=== PATIENT | female | born 1940 | race Caucasian/White ===

== ENCOUNTER 2023-03-07 09:54 | Outpatient (CLI) | payer BC, SELFPAY ==
--- NOTE | 2023-03-07 10:15 | MR_ITS ---
[address] [address] Phone:?[phone] Fax:?[phone] Referring Physician Information: Agnes Herrmann M.D. [address] [facility] [address] Phone:?[phone] Fax:?[phone] Patient:Natalia Wyatt D.O.B:?1940 Sex:?Female Phone:? [facility] MRN:?[id number] Exam Date:?03/07/2023 ? EXAM: MRI of the LEFT KNEE, without contrast CLINICAL HISTORY: Left knee pain. COMPARISONS: Plain radiographs 02/24/2023. TECHNICAL: MR sequences of the left knee: sagittals: PD, PDFS coronals: PD, STIR axials: PD, T2 FS CONTRAST: None SEDATION: None FINDINGS: Bones: No fracture, bone marrow contusion, or other suspicious bone marrow signal abnormality. 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 Retinacula: The medial and lateral retinacula are intact. Fat pads: The infrapatellar, quadriceps, and prefemoral fat pads are unremarkable. Knee joint: Effusion: Moderate left knee joint effusion. Popliteal cyst: None. Intra-articular bodies: None. Posteromedial corner: The semimembranosus and pes anserine tendons are intact. Medial compartment: Medial meniscus: Intact. 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 Lateral compartment: Lateral meniscus: Markedly complex tear from the anterior horn/body junction through most of the posterior horn of the lateral meniscus with full-thickness radial component near the body/posterior horn junction. Cartilage: Extensive grade III chondromalacia over the central, posterior, and medial portions of the lateral tibial plateau. Ligaments: Anterior cruciate ligament: Intact. Posterior cruciate ligament: Intact. Medial collateral ligament: Intact. Posterior oblique ligament: Intact. Fibular collateral ligament: Intact. Posterolateral corner: The distal biceps femoris tendon, iliotibial band, popliteus tendon, popliteus muscle, popliteofibular ligament, and arcuate ligament are intact. Extensor mechanism: Patellar tendon: Intact. Quadriceps tendon: Intact. IMPRESSION: 1. Markedly complex tear from the anterior horn/body junction through most of the posterior horn of the lateral meniscus with full-thickness radial component near the body/posterior horn junction. 2. 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 3. Moderate left knee joint effusion. 4. No ligamentous injury or medial meniscal tear of the left knee. RCB Electronically signed on 03/07/2023 12:29:00 PM by Maurice Valadez M.D.
== END 2023-03-07 09:55 | disposition home or self-care (01) ==
PROVIDERS: PCP Internal Medicine; Visit Provider Family Medicine
DX: M25.562 Pain in left knee (principal); S83.282A Other tear of lateral meniscus, current injury, left knee, initial encounter; M22.42 Chondromalacia patellae, left knee; M25.462 Effusion, left knee
CPT/HCPCS: 73721

== ENCOUNTER 2023-03-13 08:49 | Outpatient (CLI) | payer BC, SELFPAY | END 2023-03-13 08:50 | disposition home or self-care (01) | PROVIDERS: PCP Internal Medicine; Referring Provider Internal Medicine; Visit Provider Physician Assistant Medical | DX: E03.9 Hypothyroidism, unspecified (principal); E78.5 Hyperlipidemia, unspecified; I10 Essential (primary) hypertension; R68.89 Other general symptoms and signs; M10.9 Gout, unspecified; N18.30 Chronic kidney disease, stage 3 unspecified; I48.20 Chronic atrial fibrillation, unspecified | CPT/HCPCS: 80053; 80061; 82306; 82607; 84439; 84443 ==

== ENCOUNTER 2023-05-21 10:08 | Outpatient (CLI) | payer BC, SELFPAY ==
--- NOTE | 2023-05-21 10:15 | CRLHL7_ITS ---
For Patients: As a result of the Century Cures Act, medical imaging exams and procedure reports are released immediately into your electronic medical record. You may view this report before your referring provider. If you have questions, please contact your health care provider. INDICATION: Esophageal dysphagia, aspiration TECHNIQUE: Modified barium swallow. Fluoroscopic time 63 seconds. COMPARISON: Esophagram 04/30/2023 FINDINGS/IMPRESSION: Spontaneous laryngeal penetration occurred with varying thicknesses of barium although no aspiration occurred. No obstruction to the flow of barium although there is diminished transit through the proximal esophagus secondary to distal esophageal spasm. Swallowed barium tablet is tolerated normally within the oropharynx although there is decreased transit through the distal esophagus. Dictated by Solo Kilgore MD @ 05/21/2023 10:53:57 AM (Electronically Signed)
== END 2023-05-21 10:09 | disposition home or self-care (01) ==
LOC: RAD 10:09
PROVIDERS: PCP Internal Medicine; Visit Provider Internal Medicine Gastroenterology
DX: R13.19 Other dysphagia (principal); T17.208A Unspecified foreign body in pharynx causing other injury, initial encounter
CPT/HCPCS: 74230; 92611

== ENCOUNTER 2023-05-22 11:15 | Outpatient (RCR) | payer BC, MEDICARE, SELFPAY ==
--- NOTE | 2023-05-02 11:44 | PT.OPDN ---
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 She reports that everything has been going well and her L knee feels good. She says she was using her step stool today and noticed no pain with that or with going up the stairs. Pt rates overall improvement in symptoms as 80%. Precautions Treatment Precautions/Contraindications Kfmmvkgl-rj-zxuerk osteoarthritis of L knee Markedly complex tear from the anterior horn/body junction through most of the posterior horn of the lateral meniscus with full-thickness radial component near the body/ posterior horn junction Home Exercise Home Exercise Comments [id number] Objective Other/Pertinent Objective R knee ROM - 0-123 L knee ROM - 1-120 R Hip Strength Flexion - 4/5 MMT Abduction - 4/5 MMT Adduction - 4/5 MMT IR - 4/5 MMT ER - 4/5 MMT Extension - 3+/5 MMT L Hip Strength Flexion - 4/5 MMT Abduction - 3+/5 MMT Adduction - 4/5 MMT IR - 4/5 MMT ER - 4+/5 MMT Extension - 3+/5 MMT R knee Extension - 5/5 MMT R Knee Flexion - 4/5 MMT L knee Extension - 5/5 MMT L knee Flexion - 4/5 MMT Patient Instructed in Risks/Benefits Yes Therapeutic Exercise Therapeutic Exercise Minutes (minutes) 40 Therapeutic Exercise: To Restore Bike - 4 minutes Functional Status Squat with chair touch, 3 x 10 *set 2 performed with ball between knees for stabilization assistance, pad placed on chair seat Leg press, 70#, 2 x 10, 6 LAQ, 7.5# 3 x 15 ea Marching in standing, 4# 3 x 10 ea Standing HS curl, 4# 3 x 10 ea Treatment Minutes Timed Code Treatment Minutes 40 Total Treatment Time 40 Billing Units Therapeutic Exercise Units 3 Assessment/Impression Assessment/Impression Katelyn has progressed very well in her time in therapy thus far. Her L knee extension strength is full at this time and her L knee ROM is full. She continues to exhibit significant knee valgus with vab-so-qmzwu transfers; will continue to work on this. Katelyn rates her overall improvement since starting therapy as 80% at this time. She has 6 sessions remaining. We have discussed maintaining our current POC to continue focusing on knee and hip strengthening and proper body mechanics while transferring. Recommend continued PT services to address deficits and return patient to highest level of function. Co-Signed by Efrain Walter, PT, DPT [id number] Plan of Care Physical Therapy Goals STG - To be completed in 2-3 weeks: 1. Pt will report reduction in L knee pain by factor of 2 so that she may ambulate with tolerable level of pain. MET 2. Pt to show appropriate use of all AD's with minimal gait deviations and no LOB with all ambulation to reduce risk of falls and restore normal gait mechanics. MET LTG - To be completed in 8 weeks: 1. Pt to be I with HEP so that they may I manage progression of symptoms. 2. Pt will demonstrate 120 degrees knee flexion on L knee so that they may descend steps without restrictions in ROM. MET 3. Pt will perform 10+ squats with good control over medial/ lateral deviation of knees to show improved functional strength to assist with transfers. 4. Pt will demonstrate 5/5 MMT knee flexion/extension of injured limb to provide greater support to knee joint and allow for ease of ambulation. NOT MET - knee flexion measured as 4/5 MMT 05/01/23. Daily Plan of Care Continue per POC Daily Plan of Care Comments Hip abduction, extension strength exercises at next session. Student Supervision Licensed PT Directed/Approved Treatment, Reviewed POC with Patient,Made Contact with Patient, Participated in Treatment Documentation Reviewed By Senior Supplier Quality Engineer Yes
== END 2023-06-10 09:59 | disposition home or self-care (01) ==
PROVIDERS: PCP Internal Medicine; Visit Provider Physician Assistant Medical
DX: M17.12 Unilateral primary osteoarthritis, left knee (principal); S83.289A Other tear of lateral meniscus, current injury, unspecified knee, initial encounter; M25.562 Pain in left knee; Z51.89 Encounter for other specified aftercare
CPT/HCPCS: 97110; 97140; 97161; 97535

== ENCOUNTER 2023-07-01 08:54 | Outpatient (CLI) | payer BC, SELFPAY | END 2023-07-01 08:55 | disposition home or self-care (01) | LOC: NFLDREF 07-02 14:55 | PROVIDERS: PCP Internal Medicine; Referring Provider Internal Medicine; Visit Provider Physician Assistant Medical | DX: E03.9 Hypothyroidism, unspecified (principal) | CPT/HCPCS: 84443 ==

== ENCOUNTER 2023-09-12 13:47 | Outpatient (CLI) | payer BC, SELFPAY | END 2023-09-12 13:48 | disposition home or self-care (01) | PROVIDERS: PCP Internal Medicine; Visit Provider Family Medicine | DX: Z01.818 Encounter for other preprocedural examination (principal); E03.9 Hypothyroidism, unspecified; D58.2 Other hemoglobinopathies | CPT/HCPCS: 80053; 84443 ==

== ENCOUNTER 2023-12-25 08:45 | Outpatient (CLI) | payer BC, SELFPAY | END 2023-12-25 08:46 | disposition home or self-care (01) | LOC: NFLDREF 12-26 06:17 | PROVIDERS: PCP Internal Medicine; Referring Provider Internal Medicine; Visit Provider Physician Assistant Medical | DX: E03.9 Hypothyroidism, unspecified (principal); E78.5 Hyperlipidemia, unspecified; I10 Essential (primary) hypertension | CPT/HCPCS: 80053; 80061; 84443 ==

== ENCOUNTER 2023-12-30 14:56 | Outpatient (CLI) | payer BC, SELFPAY | END 2023-12-30 14:57 | disposition home or self-care (01) | LOC: FRMREF 14:58 | PROVIDERS: PCP Internal Medicine; Visit Provider Physician Assistant Medical | DX: M1A.9XX0 Chronic gout, unspecified, without tophus (tophi) (principal) | CPT/HCPCS: 84550 ==

== ENCOUNTER 2024-03-09 09:16 | Outpatient (CLI) | payer BC, SELFPAY | END 2024-03-09 09:17 | disposition home or self-care (01) | LOC: NFLDREF 03-10 06:35 | PROVIDERS: PCP Internal Medicine; Referring Provider Internal Medicine; Visit Provider Family Medicine | DX: N39.0 Urinary tract infection, site not specified (principal) | CPT/HCPCS: 87086; 87186 ==

== ENCOUNTER 2024-05-03 10:39 | Outpatient (CLI) | payer BC, SELFPAY ==
--- NOTE | 2024-05-03 10:45 | CRLHL7_ITS ---
For Patients: As a result of the Cures Act, medical imaging exams and procedure reports are released immediately into your electronic medical record. You may view this report before your referring provider. If you have questions, please contact your health care provider. BILATERAL SCREENING MAMMOGRAM WITH COMPUTER-AIDED DETECTION AND TOMOSYNTHESIS CLINICAL HISTORY: BILATERAL breast inverted nipples. COMPARISON: None. TECHNIQUE: Digital BILATERAL mammogram in 4 projections with computer-aided detection. Tomosynthesis was used in this interpretation. BREAST COMPOSITION: There are scattered areas of fibroglandular density. FINDINGS: 3D CC/MLO BILATERAL mammogram images submitted. No suspicious mass or architectural distortion. Benign calcifications. No adenopathy. IMPRESSION: No suspicious findings. RECOMMENDATIONS: Clinical follow-up. BI-RADS Category 2: Benign A lay language report of this examination will be provided to the patient. Dictated by Solo Kilgore MD @ 05/03/2024 11:36:11 AM/CRL:ana PT/Dictated by: Solo Kilgore MD @ 05/03/2024 11:36:00 AM (Electronically Signed)
== END 2024-05-03 10:40 | disposition home or self-care (01) ==
LOC: MAMMO 10:40
PROVIDERS: PCP Physician Assistant Medical; Visit Provider Physician Assistant Medical
DX: N64.59 Other signs and symptoms in breast (principal)
CPT/HCPCS: 77066; G0279

== ENCOUNTER 2024-05-05 14:25 | Outpatient (CLI) | payer BC, SELFPAY | END 2024-05-05 14:26 | disposition home or self-care (01) | LOC: NFLDREF 05-09 16:39 | PROVIDERS: PCP Physician Assistant Medical; Referring Provider Physician Assistant Medical; Visit Provider Physician Assistant Medical | DX: N39.0 Urinary tract infection, site not specified (principal); N30.00 Acute cystitis without hematuria; F32.0 Major depressive disorder, single episode, mild | CPT/HCPCS: 87086; 87186 ==

== ENCOUNTER 2024-05-25 09:14 | Outpatient (CLI) | payer BC, SELFPAY | END 2024-05-25 09:15 | disposition home or self-care (01) | LOC: NFLDREF 05-28 06:06 | PROVIDERS: PCP Physician Assistant Medical; Referring Provider Physician Assistant Medical; Visit Provider Physician Assistant Medical | DX: N30.00 Acute cystitis without hematuria (principal) | CPT/HCPCS: 87086 ==

== ENCOUNTER 2024-07-14 09:18 | Outpatient (CLI) | payer BC, SELFPAY | END 2024-07-14 09:19 | disposition home or self-care (01) | PROVIDERS: PCP Physician Assistant Medical; Visit Provider Physician Assistant Medical | DX: N39.0 Urinary tract infection, site not specified (principal) | CPT/HCPCS: 87086; 87186 ==

== ENCOUNTER 2024-08-03 09:43 | Outpatient (CLI) | payer BC, SELFPAY | END 2024-08-03 09:44 | disposition home or self-care (01) | LOC: NFLDREF 08-07 11:58 | PROVIDERS: PCP Physician Assistant Medical; Referring Provider Physician Assistant Medical; Visit Provider Physician Assistant Medical | DX: N39.0 Urinary tract infection, site not specified (principal) | CPT/HCPCS: 87086 ==

== ENCOUNTER 2024-09-16 14:09 | Outpatient (CLI) | payer BC, SELFPAY | END 2024-09-16 14:10 | disposition home or self-care (01) | PROVIDERS: PCP Physician Assistant Medical; Visit Provider Family Medicine | DX: R30.0 Dysuria (principal); E03.9 Hypothyroidism, unspecified; I10 Essential (primary) hypertension; R41.3 Other amnesia; N39.0 Urinary tract infection, site not specified | CPT/HCPCS: 80053; 84443; 87086; 87186 ==

== ENCOUNTER 2024-10-19 10:56 | Outpatient (CLI) | payer BC, SELFPAY | END 2024-10-19 10:57 | disposition home or self-care (01) | LOC: NFLDREF 10-20 11:26 | PROVIDERS: PCP Physician Assistant Medical; Referring Provider Physician Assistant Medical; Visit Provider Physician Assistant Medical | DX: N39.0 Urinary tract infection, site not specified (principal); B96.5 Pseudomonas (aeruginosa) (mallei) (pseudomallei) as the cause of diseases classified elsewhere | CPT/HCPCS: 87086 ==

== ENCOUNTER 2024-11-02 10:18 | Outpatient (CLI) | payer BC, SELFPAY | END 2024-11-02 10:19 | disposition home or self-care (01) | LOC: NFLDREF 11-04 13:33 | PROVIDERS: PCP Physician Assistant Medical; Referring Provider Physician Assistant Medical; Visit Provider Physician Assistant Medical | DX: R41.0 Disorientation, unspecified (principal) | CPT/HCPCS: 87086 ==

== ENCOUNTER 2024-11-23 09:55 | Outpatient (CLI) | payer BC, SELFPAY | END 2024-11-23 09:56 | disposition home or self-care (01) | LOC: NFLDREF 11-26 07:33 | PROVIDERS: PCP Physician Assistant Medical; Referring Provider Physician Assistant Medical; Visit Provider Family Medicine | DX: R82.90 Unspecified abnormal findings in urine (principal) | CPT/HCPCS: 87086 ==

== ENCOUNTER 2024-11-28 12:03 | Inpatient (IN) | payer MEDICARE, BC, SELFPAY ==
[2024-11-28] VITALS (28 sets, daily range): BP systolic 121–201; BP diastolic 75–126; PULSE 68–108; RESP 18–22; TEMP 35.8–36; O2SAT 87–98; BMI 26.1; BMI 25.7
--- OUTSIDE RECORDS SUMMARY | 2024-11-28 12:05 | XMS_ITS | Clinical Summary ---
Author Organization [facility] Address [place], [place] [address] Care Team Providers Care Coronary Clinical Specialist Name Role Phone RafaYari Cmaeron ZABALA Primary Care Provider Allergies Active Allergy Reactions Criticality Noted Date Comments Adhesive Rash Low 08/13/2014 Codeine Other - Describe In Comment Field Medium Sleep walks Medications multivitamins-c impdwk-rves-eby erals 18-0.4 mg tab tablet Daily Active potassium chloride (KLOR-CON 10; K-TAB) 10 mEq Controlled-Rele ase tablet Daily Active alendronate (FOSAMAX) 70 mg tablet 09/23/2021 Active Certolizumab Pegol (CIMZIA) 400 mg/2 mL (200 mg/mL x 2) sykt injection [id number] Activ e cholecalciferol (VITAMIN D3) 1,000 unit tablet once daily. Active escitalopram oxalate (LEXAPRO) 10 mg tablet 08/01/2021 Active febuxostat (ULORIC) 40 mg tab Daily Active furosemide (LASIX) 20 mg tablet 10/10/2021 Active lisinopriL (PRINIVIL; ZESTRIL) 20 mg tablet Daily Active omeprazole (PRILOSEC) 20 mg Delayed-Release capsule Daily Active oxybutynin XL (DITROPAN XL) 10 mg CR tablet Daily Acti ve Xarelto 15 mg tab tablet 10/06/2021 Active levothyroxine (SYNTHROID) 75 mcg tablet once daily. 03/21/2023 Active metoprolol succinate (TOPROL XL) 25 mg Sustained-Relea se tablet 3 Tablets (75 mg) once daily. 0 03/21/2023 Active Social History Tobacco Use Types Packs/Day Years Used Date Smoking Tobacco: Never Smokeless Tobacco: Never Tobacco Cessation:Counseling Given: Yes Social Connections Answer Date Recorded Frequency of Communication with Friends and Fami ly Not on file 11/24/2021 Financial Resource Strain Answer Date R ecorded Difficulty of Paying Living Expenses Not on file 11/24/2021 Difficulty of Paying Living Expenses Not on file 11/24/2021 Comments Unknown Sex and Gender Information Value Date Recorded Sex Assigned at Not on file Legal Sex Female 10:52 AM CDT Gender Identity Not on file Sexual Orientation Not on file Obstetrics History Last Filed Vital Signs Vital Sign Reading Time Taken Comments Blood Pressure 138/90 10/11/2021 3:07 PM HIGH SCHOOL GUIDANCE COUNSELOR Pulse 82 10/30/2022 1:23 PM HIGH SCHOOL GUIDANCE COUNSELOR Temperature - - Respiratory Rate - - Oxygen Saturation 99% 10/30/2022 1:23 PM HIGH SCHOOL GUIDANCE COUNSELOR Inhaled Oxygen Concentration - - Weight 70.3 kg (155 lb) 10/30/2022 1:23 PM HIGH SCHOOL GUIDANCE COUNSELOR Height - - Body Mass Index - - Plan of Treatment Health Maintenance Due Date Last Done Comments Tdap 1951 Depression screening for age 12+ 1952 BMI (ht and wt on same day) for age 18+ 1958 Zoster (shingles) series for age 50+ (1 of 2) 12/09/18 60 Tetanus booster 1960 DEXA/DXA scan for age 65+ 2005 Pneumococcal series for age 50+ (1 of 1 - PCV) 006 RSV vaccine for adults or pr egnancy (1 - 1-dose 75+ series) 2015 COVID-19 vaccine series (2 - Moderna risk series) 08/2508/19/2022 Influenza for age 65+ 07/25/2024 Insurance [phone] [place] [address] [place] Care Teams Coronary Clinical Specialist Relationship Specialty Start Date End Date Yari Craig PA-C [address] [place] [id number] PCP - General Physician Fur Glosser 09/26/22
--- OUTSIDE RECORDS SUMMARY | 2024-11-28 12:05 | XMS_ITS | Continuity of Care Document ---
Author Name [facility] User [facility] Address Unknown Organization Unknown Address Unknown Procedures FILTER APPLIED:Only known Procedures with Onset Date within the last 5 years Procedure Date Procedure Provider Additional Inform ation Status URINE CULTURE/COLONY COUNT (07163) Completed MICROBE SUSCEPTIBLE COLT (70958) Completed ASSAY OF BLOOD/URIC ACID (28642) Completed COMPREHEN METABOLIC PANEL (00623) Completed ASSAY THYROID STIM HORMONE (20959) Completed LIPID PANEL (86357) Comp leted ADMISSION MED REC MARKER FOR REPORTING AND BPA'S (86822) Completed COMPREHEN METABOLIC PANEL (88145) Completed ASSAY THYROID STIM HORMONE (38317) Completed Encounters FILTER APPLIED:Only known Encounters with Admission Date within the last 5 years Encounter Location Admission Discharge Billing Code Technical Service Rep [facility] Out[facility] Jodi Herrmann Inpatient [facility] Outpatient [facility] Outpatient [facility] Outpatient [facility] Outpatient Yari Craig Outpatient Yari Craig Outpatient Jodi Herrmann Outpatient [facility] Outpatient [facility] Outpatient [facility] Outpatient [facility] Outpatient [facility]
--- OUTSIDE RECORDS SUMMARY | 2024-11-28 12:06 | XMS_ITS | Encounter Summary ---
Author Organization [facility] Address [address] [place] [address] Care Team Providers Care Prepress Proofer Name Role Phone Yari Craig PA-C Primary Care Provider Vasile Reece PhD LP Unavailable Amber Titus APRN SPRAYER AUTOMATIC SPRAY MACHINE Unavailable Amber Titus APRN SPRAYER AUTOMATIC SPRAY MACHINE Unavailable Keerthi Duff PA-C Unavailable [phone] Amber Titus APRN SPRAYER AUTOMATIC SPRAY MACHINE Unavailable [phone] Encounter Details Date Type Department Care Team (Late st Contact Info) Description 07/14/2024 [facility] Neuropsychology [address] [address] Vasile Reece, PhD [address] [address] Social History Tobacco Use Types Packs/Day Years Used Date Smoking Tobacco: Former Cigarettes Smokeless Tobacco: Never Alcohol Use Standard Drinks/Week Comments Yes 0 (1 standard drink = 0.6 oz pure alcohol) once a week - maybe 3 times a month PHQ-2 Answer Date Recorded PHQ-2 Score 0 03/16/2024 Adolescent Education Answer Date Record ed Getting School Help Needed Not on file 08/16 Comments Unknown Sex and Gender Information Value Date Recorded Sex Assigned at Not on file Legal Sex Female 4:56 PM CDT Gender Identity Not on file Sexual Orientation Not on file documented as of this encounter Plan of Treatment Upcoming Encounters Date Type Department Care Team (Late st Contact Info) Description 12/23/2024 3:00 PM KEY PUNCH OPERATOR Office Visit [facility] [place] [address] [place] [phone] Yari Craig PA-C [facility] [address] [facility] [place], [place] [phone] Keerthi Duff PA-C [address] [facility] [address] [place] [address] 02/18/2025 8:00 AM CDT Office Visit [facility] Neuropsychology [address] [phone] Vasile Reece, PhD [address] [address] 02/28/2025 8:00 AM CDT Hospital Encounter [facility] PeriOp Services [address] [place] [address] Yvon Ordonez MD [address] [address] 02/28/2025 8:00 AM CDT - 02/28/2025 8:50 AM CDT Surgery [facility] [address] [place] [address] Yvon Ordonez MD [place] [facility] [address] [place] [address] Colonoscopy Scheduled Procedures Name Priority Associated Diagnoses Date/Ti me COLONOSCOPY Crohn's disease without complication, unspecified gastrointestinal tract location (H) Incontinence of feces with fecal urgency H/O: stroke Rectal urgency 02/28/2025 8:00 AM CDT documented as of this encounter Visit Diagnoses Not on filedocumented in this encounter Care Teams Prepress Proofer Relationship Specialty Start Date End Date Yari Craig PA-C [facility] [address] [place] [address] PCP - General 09/15/23 Vasile Reece, PhD LP [address] [place] [phone] Neuropsychology 10/02/23 Amber Titus APRN SPRAYER AUTOMATIC SPRAY MACHINE [facility] [address] [place] [phone] Nurse Practitioner Psychiatry & Neurology Vascular Neurology 10/24/23 Amber Titus APRN SPRAYER AUTOMATIC SPRAY MACHINE [facility] [address] [place] [address] Assigned Behavioral Health Provider 03/16/24 09/14/24 Keerthi Duff PA-C [address] [address] Physician Sales Demonstrator Urology 09/02/24 Amber Titus APRN SPRAYER AUTOMATIC SPRAY MACHINE [facility] [address] [place] [phone] (work) Assigned Surgical Provider 09/15/24 documented as of this encounter
--- OUTSIDE RECORDS SUMMARY | 2024-11-28 12:06 | XMS_ITS | Encounter Summary ---
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) [address] [address] Phone: tel: Referral ID Status Reason Start Date Expiration Date Visits Re quested Visits Authorized [id number] Closed 10/14/2024 11/23/2024 75 [phone] Encounter Details Date Type Department Care Team (Late st Contact Info) Description 10/15/2024 10:45 AM POINTER MACHINE OPERATOR Therapy Visit [address] [address] Amber Titus APRN HUMAN SERVICE COORDINATOR [facility] [address] [place] [address] Malissa Clements SLP [facility] [address] [place] [address] 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 Not on file 10/15/2024 Within the past 12 months, h ave you been hit, slapped, kicked or otherwise physically hurt by someone? No 2023 Within the past 12 months, h ave you been humiliated or emotionally abused in other ways by your partner or ex-partner? No 10/15/2024 Comments Unknown Sex and Gender Information Value Date Recorded Sex Assigned at Not on file Legal Sex Female 4:56 PM CDT Gender Identity Not on file Sexual Orientation Not on file documented as of this encounter Progress Notes * Malissa Clements, SYDNEE - 10/15/2024 1:10 PM CST Speech Language Pathology Cognitive Linguistic Quick Test (CLQT) SUMMARY OF TEST: The CLQT assesses visual attention and perception, working memory and language output skills, as well as auditory memory and comprehension. Non-linguistic tasks can help assess planning, and self-monitoring, visual discrimination and analysis, as well as creativity and mental flexibility. Together,these subtests assess the cognitive domains of attention, memory, executive function, language, andvisuospatial skills using a severity rating of either WNL (within normal limits), Mild, Moderate orSevere. RESULTS OF TESTING: Attention Score: 133 Severity Rating: Mild Memory Score: 162 Severity Rating: WNL Executive Functions Score: 17 Severity Rating: Mild Language Score: 29 Severity Rating: WNL Visuospatial Skills Score: 66 Severity Rating: WNL Composite Severity Rating Score: 3.6 Severity Rating: WNL INTERPRETATION OF TEST RESULTS: Pt presents with a score in the normal range for her age group. Shepresents with mild/minimal impairments with attention and executive function and normal range for memory, language, and visuospatial skills. TIME ADMINISTERING TEST: 45 min TIME FOR INTERPRETATION AND PREPARATION OF REPORT: 45 min TOTAL TIME: 90 min Reference: Jovan Linder, CCC-ENTERTAINMENT DANCER, (2000) [employer] TER MACHINE OPERATOR * Malissa Clements SLP - 10/15/2024 10:45 AM CST SPEECH LANGUAGE PATHOLOGY EVALUATION Fall Risk Screen: Fall screen completed by: ENTERTAINMENT DANCER Have you fallen 2 or more times in the past year?: No Have you fallen and had an injury in the past year?: No Is patient a fall risk?: No Subjective Presenting condition or subjective complaint: Patient here for a speech-language pathology evaluation d/t h/o CVA in 2022 and concerned for cognitive-linguistic changes in the last few months. Daughter and son in-law present for assessment. Pt lives independently but receives help from family for pill set up. She can walk, get dressed, but is no longer driving. Family has noticed a declinein memory since May. Would like to complete cognitive assessment and determine if she needs more assistance. 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) Thyroid disease Urinary tract infection 08/17/2014 Dates & types of surgery: Past Surgical History: Procedure Laterality Date APPENDECTOMY cataracts Bilateral CHOLECYSTECTOMY COLONOSCOPY EP ABLATION PULMONARY VEIN ISOLATION EYE SURGERY CRUSHING FOREMAN SURGERY HYSTERECTOMY IR CAROTID CEREBRAL ANGIOGRAM RIGHT 09/15/2023 SKIN / NAIL BIOPSY Right hand/removal of growth Prior diagnostic imaging/testing results: (Patient-Rptd) MRI; CT scan; X-ray Prior therapy history for the same diagnosis, illness or injury: (Patient-Rptd) Yes (Patient-Rptd) 09/15_~04/16 Yes, patient received ENTERTAINMENT DANCER services while an , ARU, [facility], and other care facilities, until her discharge back to her home in March 2024. Living Environment Social support: (Patient-Rptd) Alone Help at home: (Patient-Rptd) Home management tasks (cooking, cleaning); Medication and/or finances;Assist for driving and community activities; Emergency call system Equipment owned: (Patient-Rptd) Four-point cane; Walker with wheels; Grab bars; Bath bench Employment: (Patient-Rptd) No Hobbies/Interests: (Patient-Rptd) reading painting Patient goals for therapy: None stated Pain assessment: Pain denied Objective VERBAL EXPRESSION (use of spoken language to express information) Verbal expression level of impairment: no impairment PRAGMATICS (the social or functional use of language) Nonverbal skills: WFL Verbal Skills: WFL Pragmatics level of impairment: no impairment COGNITIVE STATUS Attention: impaired, min/mild changes Short term memory: intact long term care pharmacist memory: intact Executive function: impaired mental flexibility, unable to self-correct Cognition level of impairment: minimal impairment Additional cognitive evaluation: completed; see separate report for results, CLQT Assessment & Plan CLINICAL IMPRESSIONS Medical Diagnosis: 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 She presentswith mild impairments with attention and executive function and normal range for memory, language, and visuospatial skills. She will benefit from 1-2 follow up appointments for education of compensatory strategies for attention and reasoning and home program exercises. PLAN OF CARE Treatment Interventions: Cognitive skills Prognosis to achieve stated therapy goals is good Rehab potential is impacted by: comorbidities, family/caregiver support Jail Goals: ENTERTAINMENT DANCER Goal 1 Goal Identifier: LTG 1: Education and compensatory strategies Goal Description: Patient and family will verbalize understanding of cognitive- linguistic compensatory strategies for attention and executive function skills for carry-over into the home. Rationale: To maximize safety and independence with cognitive function within the home or community Target Date: 11/14/24 ENTERTAINMENT DANCER Goal 2 Goal Identifier: LTG 2: HEP Goal Description: Patient and family will verbalize understanding of a home exercise program for cognitive-linguistic skills. Rationale: To maximize safety and independence with cognitive function within the home or community Target Date: 11/14/24 Frequency of Treatment: 1x week Duration of Treatment: 2 sessions in 30 days Recommended Referrals to Other Professionals: Occupational Therapy, Neuropsychology Education Assessment: Learner/Method: Patient;Family;Listening;No Barriers to Learning Risks and benefits of evaluation/treatment have been explained. Patient/Family/caregiver agrees with Plan of Care. Evaluation Time: Signing Clinician: SYDNEE Baker TER MACHINE OPERATOR documented in this encounter Plan of Treatment Upcoming Encounters Date Type Department Care Team (Late st Contact Info) Description 12/23/2024 3:00 PM POINTER MACHINE OPERATOR Office Visit [facility] [address] [place] [phone] Yari Craig PA-C [facility] [address] [place] [address] Keerthi Duff PA-C [address] [address] 02/18/2025 8:00 AM CDT Office Visit [facility] [place] [address] [facility] 3rd [place] [phone] Vasile Reece, PhD [address] [id number] 02/28/2025 8:00 AM CDT Hospital Encounter [facility] [address] [place] [address] Yvon Ordonez MD [facility] [address] [place] [address] 02/28/2025 8:00 AM CDT - 02/28/2025 8:50 AM CDT Surgery [facility] [address] [place] [phone] Yvon Ordonez MD [address] [address] Colonoscopy Scheduled Procedures Name Priority Associated Diagnoses Date/Ti me COLONOSCOPY Crohn's disease without complication, unspecified gastrointestinal tract location (H) Incontinence of feces with fecal urgency H/O: stroke Rectal urgency 02/28/2025 8:00 AM CDT documented as of this encounter Visit Diagnoses Diagnosis 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) Crohn's disease without complication, unspecified gastrointestinal tract location (H) Incontinence of feces with fecal urgency H/O: stroke Transient ischemic attack (TIA), and cerebral infarction without residual deficits Rectal urgency Fecal urgency documented in this encounter Care Teams Office Admin Relationship Specialty Start Date End Date Yari Craig PA-C [address] [place] [address] PCP - General 09/15/23 Vasile Reece, PhD LP [address] [place] [phone] Neuropsychology 10/02/23 Amber Titus APRN HUMAN SERVICE COORDINATOR [facility] [address] [place], [place] [address] Nurse Practitioner Psychiatry & Neurology Vascular Neurology 10/24/23 Keerthi Duff PA-C [address] [address] Physician Thread Machine Operator Urology 09/02/24 Amber Titus APRN HUMAN SERVICE COORDINATOR [facility] [address] [place] [phone] Assigned Surgical Provider 09/15/24 documented as of this encounter
--- OUTSIDE RECORDS SUMMARY | 2024-11-28 12:06 | XMS_ITS | Encounter Summary ---
Author Organization [place] Address [address] [facility] [place] [address] Care Team Providers Care Millstone Cleaner Name Role Phone Yari Craig PA-C Primary Care Provider Vasile Reece PhD LP Unavailable [phone] Amber Titus APRN CARDIOVASCULAR SURGICAL TECH Unavailable [phone] Keerthi Duff PA-C Unavailable Amber Titus APRN CARDIOVASCULAR SURGICAL TECH Unavailable [phone] Encounter Details Date Type Department Care Team (Late st Contact Info) Description 09/27/2024 MyC Medical Advice [facility] [place] [address] [place] [phone] Carolyn Hernandez Social History Tobacco Use Types Packs/Day Years [...] st Contact Info) Description 12/23/2024 3:00 PM BUNCH MAKER HAND Office Visit [facility] [place] [address] [facility] [address] [place] [address] Yari Craig PA-C [facility] [address] [place], [place] [phone] Keerthi Duff PA-C [address] [address] 02/18/2025 8:00 AM CDT Office Visit [facility] Neuropsychology [address] [phone] Vasile Reece, PhD [address] [address] 02/28/2025 8:00 AM CDT Hospital Encounter [facility] [address] [place] [phone] Yvon Ordonez MD [address] [address] 02/28/2025 8:00 AM CDT - 02/28/2025 8:50 AM CDT Surgery [facility] [address] [place] [phone] Yvon Ordonez MD [address] [address] Colonoscopy Scheduled Procedures Name Priority Associated Diagnoses Date/Ti me COLONOSCOPY Crohn's disease without complication, unspecified gastrointestinal tract location (H) Incontinence of feces with fecal urgency H/O: stroke Rectal urgency 02/28/2025 8:00 AM CDT documented as of this encounter Visit Diagnoses Not on filedocumented in this encounter Care Teams Millstone Cleaner Relationship Specialty Start Date End Date Yari Craig PA-C [facility] [address] [facility] [place] [address] PCP - General 09/15/23 Vasile Reece, PhD LP [address] [place] [phone] Neuropsychology 10/02/23 Amber Titus APRN CARDIOVASCULAR SURGICAL TECH [facility] [address] [place] [phone] Nurse Practitioner Psychiatry & Neurology Vascular Neurology 10/24/23 Keerthi Duff PA-C [address] [id number] Physician Podiatric Physician Urology 09/02/24 Amber Titus APRN CARDIOVASCULAR SURGICAL TECH [facility] [address] [place] [address] [phone] Assigned Surgical Provider 09/15/24 documented as of this encounter
--- OUTSIDE RECORDS SUMMARY | 2024-11-28 12:06 | XMS_ITS | Clinical Summary ---
Author Organization [facility] Address [address] [place] [address] Care Team Providers Care Event Attendant Name Role Phone Yari Craig PA-C Primary Care Provider Vasile Reece PhD LP Unavailable [phone] Amber Titus APRN [employer]ACH [employer] Unavailable [phone] Keerthi Duff PA-C Unavailable [phone] Amber Titus APRN BEACH EX[employer]ERT Unavailable Allergies Active Allergy Reactions Criticality Noted Date Comments Adhesive Tape Rash Low 09/12/2023 If for short use no problem but if on for less then 24 hours no problems Codeine Confusion 09/12/2023 Sleeps heavily and has wandered after use Medications alendronate (FOSAMAX) 70 MG tabletIndication s:Decreased Bone Mineral Density Take 70 mg by mouth every 7 days Active calcium carbonate-vitami n D (CALTRATE) 600-10 MG-MCG per tabletIndication s:Hypocalcemia Take 1 tablet by mouth 2 times daily Active levothyroxine (SYNTHROID/LEVOT HROID) 75 MCG tabletIndication s:Hypothyroidism Take 75 mcg by mouth daily Active multivitamin (CENTRUM SILVER) tabletIndication s:nutrition supplement Take 1 tablet by mouth daily Active omeprazole (PRILOSEC) [address] capsuleIndicatio ns:Heartburn Take 40 mg by mouth 2 times daily Active rivaroxaban ANTICOAGULANT (XARELTO) 15 MG TABS tabletIndication s:Afib-non valvular Take 15 mg by mouth daily (with dinner) Active febuxostat (ULORIC) 40 MG TABS tabletIndication s:Hyperuricemia Take 40 mg by mouth daily Active atorvastatin (LIPITOR) 40 MG tabletIndication s:Cerebrovascula r Accident Take 1 tablet (40 mg) by mouth every evening Active escitalopram (LEXAPRO) 10 MG tabletIndication s:Generalized Anxiety Disorder Take 2 tablets (20 mg) by mouth daily Active diclofenac (VOLTAREN) 1 % topical gel Apply 2 g topically 3 times daily Active acetaminophen (TYLENOL) 500 MG tablet Take 2 tablets (1,000 mg) by mouth 3 times daily. May also take 2 tablets (1,000 mg) daily as needed for mild pain. Active albuterol (PROAIR HFA/PROVENTIL HFA/VENTOLIN HFA) 108 (90 Base) MCG/ACT inhaler Inhale 2 puffs into the lungs every 4 hours as needed for shortness of breath, wheezing or cough Active lisinopril (ZESTRIL) 10 MG tabletIndication s:Hypertension Take 2 tablets (20 mg) by mouth 2 times daily Active cloNIDine (CATAPRES) 0.1 MG tabletIndication s:Hypertension Take 0.1 mg by mouth every 6 hours as needed (hypertension) Give if SBP >170 Active certolizumab pegol (CIMZIA) 2 X 200 MG injection 2 vials/kit Inject 1 Syringe Subcutaneous every 14 days Active metoprolol succinate ER (TOPROL XL) 50 MG 24 hr tablet Take 50 mg by mouth 2 times daily Active traZODone (DESYREL) 50 MG tablet 25mg Active donepezil (ARICEPT) 5 MG tabletIndication s: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 30 tablet 2 024 2023 Discontinued Active Problems Problem Noted Date Diagnosed Date Decreased range of motion of knee 10/08/2023 Gastroesophageal reflux disease 10/08/2023 Hyperlipidemia 10/08/2023 Instability of knee joint 10/08/2023 Major depression 10/08/2023 Migraine headache 10/08/2023 Osteoporosis 10/08/2023 Stage 3 chronic kidney disease 10/08/2023 Knee pain, bilateral 09/21/2023 CVA (cerebral vascular accident) 09/20/2023 Acute CVA (cerebrovascular accident) 09/15/2023 Chronic atrial fibrillation 11/15/2021 Hypothyroidism 11/15/2021 Regional enteritis 11/15/2021 Lumbar compression fracture 08/13/2014 Pancytopenia 08/13/2014 Overview (10/08/2023): Thought to be secondary of MTX (elevated levels due to ABBIE from diarrhea) 08/2014 Gout 08/06/2013 Osteoarthrosis 08/06/2013 Primary hypertension 08/06/2013 Rheumatoid arthritis 08/06/2013 Overview (10/08/2023): Dx in 40s Was on MTX, Plaquenil from rheum in [place] MTX stopped 09/12 due to low blood counts Resolved Problems Problem Noted Date Diagnosed Date Resolved Date Acute pain of left knee 10/08/202309/24 Oral mucositis 08/19/2014 10/08/2023 Urinary tract infection 08/17/201409/24 ABBIE (acute kidney injury) 08/14/2014 Colitis 08/13/2014 10/08/2023 Overview (10/08/2023): CT and colonoscopy 08/2014 ?UC or Crohn's Encounters Date Type Department Care Team Description 11/03/2024 Refill [facility] Neurology [address] [address] Amber Titus APRN BEACH EX[employer]ERT Med Change Request 10/19/2024 9:30 AM ASSISTANT EXECUTIVE HOUSEKEEPER Therapy Visit [address] [address] Amber Titus APRN BEACH EXPERT Shannon Luis OTR 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) 10/19/2024 Travel 10/15/2024 10:45 AM ASSISTANT EXECUTIVE HOUSEKEEPER Therapy Visit [address] [phone] Amber Titus APRN BEACH EXPERT Malissa Clements, SYDNEE 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) 10/15/2024 Travel 10/12/2024 MyC Medical Advice [facility] Neurology [address] [address] Janelle Nj, RN 10/12/2024 Telephone [facility] Neurology [address] [address] Janelle Nj, RN Orders (Lab to Outside Facility) 10/11/2024 10:00 AM ASSISTANT EXECUTIVE HOUSEKEEPER Virtual Visit [address] [address] Amber Titus APRN BEACH EX[employer]ERT 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) (Primary Dx); Cognitive and behavioral changes 10/08/2024 Telephone [facility] [place] [address] [facility], [address] [place] [address] Amber Titus APRN CNP 09/27/2024 MyC Medical Advice [facility] [place] [address] [place] [address] Carolyn Hernandez from Last 3 Months Immunizations Name Administration Dates Next Due COVID-19 Monovalent 18+ (Moderna) 02/02/2021,10/2021 Influenza Vaccine 65+ (Fluzone HD) 08/20/2023, Social History Tobacco Use Types Packs/Day Years Used Date Smoking Tobacco: Former Cigarettes Smokeless Tobacco: Never Tobacco Cessation:Counseling Given: Not Answered Alcohol Use Standard Drinks/Week Comments Yes 0 [...] on file Sexual Orientation Not on file Last Filed Vital Signs Vital Sign Reading Time Taken Comments Blood Pressure 129/83 03/16/2024 2:40 PM CDT Pulse 80 03/16/2024 2:40 PM CDT Temperature 36.3 C (97.3 F) 11/18/2023 3:43 PM ASSISTANT EXECUTIVE HOUSEKEEPER Respiratory Rate 18 11/18/2023 3:43 PM ASSISTANT EXECUTIVE HOUSEKEEPER Oxygen Saturation 95% 03/16/2024 2:40 PM CDT Inhaled Oxygen Concentration - - Weight 81 kg (178 lb 9.6 oz) 12/10/2023 2:21 PM ASSISTANT EXECUTIVE HOUSEKEEPER Height 162.6 cm (5' 4) 11/18/2023 3:43 PM ASSISTANT EXECUTIVE HOUSEKEEPER Body Mass Index 30.66 11/18/2023 3:43 PM ASSISTANT EXECUTIVE HOUSEKEEPER Plan of Treatment Upcoming Encounters Date Type Department Care Team (Late st Contact Info) Description 12/23/2024 3:00 PM ASSISTANT EXECUTIVE HOUSEKEEPER Office Visit [facility] [place] [address] [facility] [address] [place] [address] Yari Craig PA-C [facility] [address] [place], [place] [phone] Keerthi Duff PA-C [address] [facility] [address] [place] [address] 02/18/2025 8:00 AM CDT Office Visit [facility] Neuropsychology [address] [phone] Vasile Reece, PhD [address] [address] 02/28/2025 8:00 AM CDT Hospital Encounter [facility] [address] [place] [address] Yvon Ordonez MD [address] [address] 02/28/2025 8:00 AM CDT - 02/28/2025 8:50 AM CDT Surgery [facility] [address] [place] [address] Yvon Ordonez MD [address] [address] Colonoscopy Scheduled Procedures Name Priority Associated Diagnoses Date/Ti me COLONOSCOPY Crohn's disease without complication, unspecified gastrointestinal tract location (H) Incontinence of feces with fecal urgency H/O: stroke Rectal urgency 02/28/2025 8:00 AM CDT Health Maintenance Due Date Last Done Comments ANNUAL REVIEW OF HM ORDERS 1940 ASTHMA ACTION PLAN 1940 ASTHMA CONTROL TEST 1940 DEPRESSION ACTION PLAN 1940 DEXA 1940 HF ACTION PLAN 1940 MICROALBUMIN 1940 PHQ-9 1940 FALL RISK ASSESSMENT 2005 MEDICARE ANNUAL WELLNESS VISIT 2005 RSV VACCINE (1 - 1-dose 75+ series) 2015 BMP 04/27/2024 10/27/2023, 09/25, 10/15/2023, Additional history exists LIPID 09/15/2024 09/15/2023 ALT 09/28/2024 09/28/2023 CBC 09/28/2024 09/28/2023, 08/26, 09/18/2023, Additional history exists HEMOGLOBIN 09/28/2024 09/28/2023, 08/26, 09/18/2023, Additional history exists COVID-19 Vaccine ( season) 2024 08/26/2024, 10/03/2023, 08/19/2022, Additional history exists ADVANCE CARE PLANNING 10/15/2028 10/15/2023, 023 DTAP/TDAP/TD IMMUNIZATION (2 - Td or Tdap) 10/06/2033 10/06/2023 ZOSTER IMMUNIZATION Completed 04/17/2022, URINALYSIS Completed 09/28/2023 Pneumococcal Vaccine: 50+ Years Completed 10/06/2023 TSH W/FREE T4 REFLEX Completed 10/06/2023, 10/06/20 23 INFLUENZA VACCINE Completed 08/26/2024, , 08/15/2022, Additional history exists HPV IMMUNIZATION Aged Out No longer e ligible based on patient's age to complete this topic MENINGITIS IMMUNIZATION Aged Out No l onger eligible based on patient's age to complete this topic RSV MONOCLONAL ANTIBODY Aged Out No l onger eligible based on patient's age to complete this topic Procedures Procedure Name Priority Date/Time Associated Diagnosis Comments BASIC METABOLIC PANEL Routine 10/27/2023 7:56 AM ASSISTANT EXECUTIVE HOUSEKEEPER Heart failure, unspecified (H) Essential (primary) hypertension T4 FREE Routine 10/06/2023 6:08 AM ASSISTANT EXECUTIVE HOUSEKEEPER Hypothyroidism, unspecified Essential (primary) hypertension UA MACROSCOPIC WITH REFLEX TO MICRO AND CULTURE STAT 09/28/2023 6:38 PM ASSISTANT EXECUTIVE HOUSEKEEPER HEPATIC FUNCTION PANEL Timed 09/28/2023 1:51 PM ASSISTANT EXECUTIVE HOUSEKEEPER CBC WITH PLATELETS STAT 09/28/2023 11 :03 AM ASSISTANT EXECUTIVE HOUSEKEEPER LIPID PROFILE Add-On 09/15/2023 5:49 AM CDT from Last 3 Months or Most Recently Relevant to Health Maintenance Results * (ABNORMAL) Basic metabolic panel (10/27/2023 7:56 AM ASSISTANT EXECUTIVE HOUSEKEEPER) Sodium 139 135 - 145 mmol/L 10/27/2023 10:22 AM [facility] Comment:Reference intervals for this test were updated on 08/19/2023 to more accurately reflect our healthy population. There may be differences in the flagging of prior results with similar values performed with this method. Interpretation of those prior results can be made in the context of the updated reference intervals. Potassium 4.3 3.4 - 5.3 mmol/L 10/27/2023 10:22 AM [facility] Chloride 100 98 - 107 mmol/L 10/27/2023 10:22 AM [facility] Carbon Dioxide (CO2) 26 22 - 29 mmol/L 10/27/2023 10:22 AM [facility] Anion Gap 13 7 - 15 mmol/L 10/27/2023 10:22 AM [facility] Urea Nitrogen 35.6(H) 8.0 - 23.0 mg/dL 10/27/2023 10:22 AM [facility] Creatinine 1.44(H) 0.51 - 0.95 mg/dL 10/27/2023 10:22 AM [facility] GFR Estimate 36(L) >60 mL/min/1. 73m2 10/27/2023 10:22 AM [facility] Calcium 9.0 8.8 - 10.2 mg/dL 10/27/2023 10:22 AM [facility] Glucose 99 70 - 99 mg/dL 10/27/2023 10:22 AM [facility] Blood BLOOD SPECIMEN / Unknown Venipuncture / Unknown 10/27/2023 7:56 AM ASSISTANT EXECUTIVE HOUSEKEEPER 10/27/2023 9:51 AM ASSISTANT EXECUTIVE HOUSEKEEPER Yeimy Almazan APRN, CNP LAB - BLOOD ORDER CHARISMA Final Result [facility] [address], [address] [place] [address], [place] [phone] * T4 free (10/06/2023 6:08 AM ASSISTANT EXECUTIVE HOUSEKEEPER) Free T4 1.27 0.90 - 1.70 ng/dL 10/06/2023 11:37 AM ASSISTANT EXECUTIVE HOUSEKEEPER LABORATORY Blood STRUCTURE OF RIGHT HAND / Unknown Venipuncture / Unknown 10/06/2023 6:08 AM ASSISTANT EXECUTIVE HOUSEKEEPER 10/06/2023 9:52 AM ASSISTANT EXECUTIVE HOUSEKEEPER Yeimy Almazan APRN, CNP LAB - BLOOD ORDER CHARISMA Final Result [facility] [address], [address] [place] [address], [place] [phone] * UA Macroscopic with reflex to Microscopic and Culture (09/28/2023 6:38 PM ASSISTANT EXECUTIVE HOUSEKEEPER) Color Urine Yellow Colorless, Straw, Light Yellow, Yellow 09/28/2023 6:50 PM ASSISTANT EXECUTIVE HOUSEKEEPER [facility] Appearance Urine Clear Clear 09/28/20 6:50 PM ASSISTANT EXECUTIVE HOUSEKEEPER [facility] Glucose Urine Negative Negative mg/dL 09/28/2023 6:50 PM ASSISTANT EXECUTIVE HOUSEKEEPER [facility] Bilirubin Urine Negative Negative 6:50 PM ASSISTANT EXECUTIVE HOUSEKEEPER [facility] Ketones Urine Negative Negative mg/dL 09/28/2023 6:50 PM ASSISTANT EXECUTIVE HOUSEKEEPER [facility] Specific [place] Urine 1.012 1.003 - 1.035 09/28/2023 6:50 PM ASSISTANT EXECUTIVE HOUSEKEEPER [facility] Blood Urine Negative Negative 09/28/2023 6:50 PM ASSISTANT EXECUTIVE HOUSEKEEPER [facility] pH Urine 5.0 5.0 - 7.0 09/28/2023 6:50 PM ASSISTANT EXECUTIVE HOUSEKEEPER [facility] Protein Albumin Urine Negative Negative mg/dL 09/28/2023 6:50 PM ASSISTANT EXECUTIVE HOUSEKEEPER [facility] Urobilinogen Urine Normal Normal, 2.0 mg/dL 09/28/2023 6:50 PM ASSISTANT EXECUTIVE HOUSEKEEPER [facility] Nitrite Urine Negative Negative 09/28/2023 6:50 PM ASSISTANT EXECUTIVE HOUSEKEEPER [facility] Leukocyte Esterase Urine Negative Negative 09/28/2023 6:50 PM ASSISTANT EXECUTIVE HOUSEKEEPER [facility] Urine URINE SPECIMEN OBTAINED BY CLEAN CATCH PROCEDURE / Unknown Non-blood Collection / Unknown 09/28/2023 6:38 PM ASSISTANT EXECUTIVE HOUSEKEEPER 09/28/2023 6:45 PM ASSISTANT EXECUTIVE HOUSEKEEPER Narrative [facility] - 09/28/2023 6:50 PM ASSISTANT EXECUTIVE HOUSEKEEPER Microscopic not indicated us Kasey Covington MD LAB - URINE ORDERABLES Final Re sult UR [facility]ORAT[facility] [address] [facility] [phone] * Hepatic panel (09/28/2023 1:51 PM ASSISTANT EXECUTIVE HOUSEKEEPER) Protein Total 7.0 6.4 - 8.3 g/dL 09/28/2023 3:58 PM ASSISTANT EXECUTIVE HOUSEKEEPER [facility] Albumin 4.0 3.5 - 5.2 g/dL 09/28/2023 3:58 PM ASSISTANT EXECUTIVE HOUSEKEEPER [facility] Bilirubin Total 0.4 <=1.2 mg/dL 09/28/2023 3:58 PM ASSISTANT EXECUTIVE HOUSEKEEPER [facility] Alkaline Phosphatase 94 35 - 104 U/L 09/28/2023 3:58 PM ASSISTANT EXECUTIVE HOUSEKEEPER [facility] AST 09/28/2023 3:58 PM ASSISTANT EXECUTIVE HOUSEKEEPER [facility] Comment: Unsatisfactory specimen - hemolyzed Reference intervals for this test were updated on 05/05/2023 to more accurately reflect our healthy population. There may be differences in the flagging of prior results with similar values performed with this method. Interpretation of those prior results can be made in the context of the updated reference intervals. ALT 34 0 - 50 U/L 09/28/2023 3:58 PM ASSISTANT EXECUTIVE HOUSEKEEPER [facility] Comment:Reference intervals for this test were updated on 05/05/2023 to more accurately reflect our healthy population. There may be differences in the flagging of prior results with similar values performed with this method. Interpretation of those prior results can be made in the context of the updated reference intervals. Bilirubin Direct <0.20 0.00 - 0.30 mg/dL 09/28/2023 3:58 PM ASSISTANT EXECUTIVE HOUSEKEEPER [facility] Blood BLOOD SPECIMEN / Unknown Venipuncture / Unknown 09/28/2023 1:51 PM ASSISTANT EXECUTIVE HOUSEKEEPER 09/28/2023 2:25 PM ASSISTANT EXECUTIVE HOUSEKEEPER us Kasey Covington MD LAB - BLOOD ORDERABLES Final Re sult UR LABORATORY [facility] [address] [facility] [place] [address], [facility] [phone] * CBC with platelets (09/28/2023 11:03 AM ASSISTANT EXECUTIVE HOUSEKEEPER) WBC Count 8.7 4.0 - 11.0 10e3/uL 09/28/2023 11:10 AM ASSISTANT EXECUTIVE HOUSEKEEPER [facility] RBC Count 4.46 3.80 - 5.20 10e6/uL 09/28/2023 11:10 AM ASSISTANT EXECUTIVE HOUSEKEEPER [facility] Hemoglobin 14.7 11.7 - 15.7 g/dL 09/28/2023 11:10 AM ASSISTANT EXECUTIVE HOUSEKEEPER [facility] Hematocrit 43.7 35.0 - 47.0 % 09/28/2023 11:10 AM ASSISTANT EXECUTIVE HOUSEKEEPER [facility] MCV 98 78 - 100 fL 09/28/2023 11:10 AM ASSISTANT EXECUTIVE HOUSEKEEPER [facility] MCH 33.0 26.5 - 33.0 pg 09/28/2023 11:10 AM ASSISTANT EXECUTIVE HOUSEKEEPER [facility] MCHC 33.6 31.5 - 36.5 g/dL 09/28/2023 11:10 AM ASSISTANT EXECUTIVE HOUSEKEEPER [facility] RDW 13.2 10.0 - 15.0 % 09/28/2023 11:10 AM ASSISTANT EXECUTIVE HOUSEKEEPER [facility] Platelet Count 236 150 - 450 10e3/uL 09/28/2023 11:10 AM ASSISTANT EXECUTIVE HOUSEKEEPER [facility] Blood STRUCTURE OF RIGHT UPPER LIMB / Unknown Venipuncture / Unknown 09/28/2023 11:03 AM ASSISTANT EXECUTIVE HOUSEKEEPER 09/28/2023 11:07 AM ASSISTANT EXECUTIVE HOUSEKEEPER us Kasey Covington MD LAB - BLOOD ORDERABLES Final Re sult UR LABORATORY [facility] [address] [facility] [place] [address], [facility] [phone] * (ABNORMAL) Lipid Profile (09/15/2023 5:49 AM CDT) Cholesterol 227(H) <200 mg/dL 09/15/2023 6:46 PM CDT [facility] Triglycerides 83 <150 mg/dL 09/15/2023 6:46 PM CDT [facility] Direct Measure HDL 53 >=50 mg/dL 09/15/2023 6:46 PM CDT [facility] LDL Cholesterol Calculated 157(H) <=100 mg/dL 09/15/2023 6:46 PM CDT [facility] Non HDL Cholesterol 174(H) <130 mg/dL 09/15/2023 6:46 PM CDT [facility] Blood STRUCTURE OF LEFT HAND / Unknown Venipuncture / Unknown 09/15/2023 5:49 AM CDT 09/15/2023 5:51 AM CDT Narrative [facility] - 09/15/2023 6:46 PM CDT Cholesterol Desirable: <200 mg/dL Triglycerides Normal: Less than 150 mg/dL Borderline High: 150-199 mg/dL High: 200-499 mg/dL Very High: Greater than or equal to 500 mg/dL Direct Measure HDL Female: Greater than or equal to 50 mg/dL Male: Greater than or equal to 40 mg/dL LDL Cholesterol Desirable: <100mg/dL Above Desirable: 100-129 mg/dL Borderline High: 130-159 mg/dL High: 160-189 mg/dL Very High: >= 190 mg/dL Non HDL Cholesterol Desirable: 130 mg/dL Above Desirable: 130-159 mg/dL Borderline High: 160-189 mg/dL High: 190-219 mg/dL Very High: Greater than or equal to 220 mg/dL us Cortes Salvador MD LAB - BLOOD ORDERABLES Final Result [facility] [address] [facility], [address] [place] [address], [facility] [phone] from Last 3 Months or Most Recently Relevant to Health Maintenance Insurance [facility] [employer] MEDICARE [facility] [employer] MEDICARE [facility] [employer] Advance Directives For more information, please contact: [phone] Documents on File Type Date Recorded Patient Machine Worker Expl anation Advance Directives and Livin g Will 10/01/2023 POLST 09-30-2023 * No CPR- Do NOT Intubate (Latest Code Status on File) Date Activated Date Inactivated Comments 09/30/2023 8:52 AM Question Answer Comments Code status determined by: Discussion with patie nt/ legal decision maker * No CPR- Do NOT Intubate Date Activated Date Inactivated Comments 09/20/2023 6:21 PM 09/30/2023 8:52 AM NO basic or advanced life-sustaining interventions are performed. Question Answer Comments Code status determined by: Discussion with patie nt/ legal decision maker * No CPR- Pre-arrest intubation OK Date Activated Date Inactivated Comments 09/20/2023 5:04 PM 09/20/2023 6:21 PM No attempt s to restore cardiac function following arrest. Intubation to prevent or reverse respiratory instability may be performed. Question Answer Comments Code status determined by: Unable to dis cuss and no AD/POLST on file; continue PREVIOUSLY ORDERED code status * No CPR- Pre-arrest intubation OK Date Activated Date Inactivated Comments 09/15/2023 9:22 PM 09/20/2023 4:49 PM No attempt s to restore cardiac function following arrest. Intubation to prevent or reverse respiratory instability may be performed. Question Answer Comments Code status determined by: Discussion with patie nt/ legal decision maker Care Teams Event Attendant Relationship Specialty Start Date End Date Yari Craig PA-C [address] [place] [address] PCP - General 09/15/23 Vasile Reece, PhD LP [address] [place] [address] [phone] Neuropsychology 10/02/23 Amber Titus APRN [employer] NEUROLOGY [facility] [address] [place] [address] [phone] Nurse Practitioner Psychiatry & Neurology Vascular Neurology 10/24/23 Keerthi Duff PA-C [address] [place], [place] [address] Physician [facility] Urology 09/02/24 Amber Titus APRN [employer] NEUROLOGY [facility] [address] [place] [address] [phone] (work) Assigned Surgical Provider 09/15/24
--- OUTSIDE RECORDS SUMMARY | 2024-11-28 12:06 | XMS_ITS | Referral Summary ---
Author Organization [facility] Address [address] [place] [address] Care Team Providers Care Engine Oiler Name Role Phone Yari Craig PA-C Primary Care Provider Vaslie Reece PhD LP Unavailable Amber Titus APRN [facility] Unavailable [phone] Keerthi Duff PA-C Unavailable Amber Titus APRN [facility] Unavailable Encounters Date Type Department Care Team Description 11/03/2024 [facility] [address], [address] [place] [phone] Amber Titus APRN [facility]ONER Med Change Request 10/19/2024 Travel 10/19/2024 9:30 AM LAND DEVELOPER Therapy Visit [address] [address] Amber Titus GROUNDSKEEPING MAINTENANCE WORKERShannon Conner CNP, OTR 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) 10/15/2024 Travel 10/15/2024 10:45 AM LAND DEVELOPER Therapy Visit [facility] [address] [place] [phone] Amber Titus APRN [facility] Malissa Clements SLP 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) 10/12/2024 MyC Medical Advice [facility] Neurology [facility] - [address] [place] [address] Janelle Nj, RN 10/12/2024 Telephone [facility] - [address] [place] [address] Janelle Nj, RN Orders (Lab to Outside Facility) 10/11/2024 10:00 AM LAND DEVELOPER Virtual Visit [facility] Neurology [facility] - [address] [place] [address] Amber Titus APRN CNP 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) (Primary Dx); Cognitive and behavioral changes 10/08/2024 Telephone [facility] Neurology [facility] - [address], [address] [place] [address] Amber Titus APRN [facility]ON[facility] 09/27/2024 MyC Medical Advice [facility] [place] [id number] [facility] [address] [place] [address] Carolyn Hernandez from Last 3 Months Allergies Active Allergy Reactions Criticality Noted Date [...] (20 mg) by mouth 2 times daily 023 Active cloNIDine (CATAPRES) 0.1 MG tabletIndication s:Hypertension [...] Active traZODone (DESYREL) 50 MG tablet 25mg 024 Active donepezil (ARICEPT) 5 MG tabletIndication s:Cerebrovascula r accident (CVA) due to embolism of right carotid artery (H) TAKE 1 TABLET BY MOUTH AT BEDTIME 90 tablet 1 024 Active citalopram (CELEXA) 10 MG tablet [...] CT and colonoscopy 08/2014 ?UC or Crohn's Immunizations Name Administration Dates Next Due COVID-19 [...] 36.3 C (97.3 F) 11/18/2023 3:43 PM LAND DEVELOPER Respiratory Rate 18 11/18/2023 3:43 PM LAND DEVELOPER Oxygen Saturation 95% 03/16/2024 2:40 PM CDT Inhaled Oxygen Concentration - - Weight 81 kg (178 lb 9.6 oz) 12/10/2023 2:21 PM LAND DEVELOPER Height 162.6 cm (5' 4) 11/18/2023 3:43 PM LAND DEVELOPER Body Mass Index 30.66 11/18/2023 3:43 PM LAND DEVELOPER Plan of Treatment Upcoming Encounters Date Type Department Care Team (Late st Contact Info) Description 12/23/2024 3:00 PM LAND DEVELOPER Office Visit [facility] Urology Clinic [place] [address] [facility] [address] [place] [phone] Yari Craig PA-C [facility] [address] [place], [place] [phone] Keerthi Duff PA-C [address] [facility] [address] [place] [address] 02/18/2025 8:00 AM CDT Office Visit [facility] Neuropsychology [address] [phone] Vasile Reece, PhD [address] [address] 02/28/2025 8:00 AM CDT Hospital Encounter [facility]Op [facility] [address] [place] [address] Yvon Ordonez MD [address] [address] 02/28/2025 8:00 AM CDT - 02/28/2025 8:50 AM CDT Surgery [facility] [address] [place] [address] Yvon Ordonez MD [address] [address] Colonoscopy Scheduled Procedures Name Priority Associated Diagnoses Date/Ti me COLONOSCOPY Crohn's disease without complication, unspecified gastrointestinal tract location (H) Incontinence of feces with fecal urgency H/O: stroke Rectal urgency 02/28/2025 8:00 AM CDT Procedures Procedure Name Priority Date/Time Associated Diagnosis Comments BASIC METABOLIC PANEL Routine 10/27/2023 7:56 AM LAND DEVELOPER Heart failure, unspecified (H) Essential (primary) hypertension T4 FREE Routine 10/06/2023 6:08 AM LAND DEVELOPER Hypothyroidism, unspecified Essential (primary) hypertension UA MACROSCOPIC WITH REFLEX TO MICRO AND CULTURE STAT 09/28/2023 6:38 PM LAND DEVELOPER HEPATIC FUNCTION PANEL Timed 09/28/2023 1:51 PM LAND DEVELOPER CBC WITH PLATELETS STAT 09/28/2023 11 :03 AM LAND DEVELOPER LIPID PROFILE Add-On 09/15/2023 5:49 AM CDT from Last 3 Months or Most Recently Relevant to Health Maintenance Results * (ABNORMAL) Basic metabolic panel (10/27/2023 7:56 AM LAND DEVELOPER) [facility] Sodium 139 135 - 145 mmol/L 10/27/2023 10:22 AM [facility] Comment:Reference intervals for this test were updated on 08/19/2023 to more accurately reflect our healthy population. There may be differences in the flagging of prior results with similar values performed with this method. Interpretation of those prior results can be made in the context of the updated reference intervals. Potassium 4.3 3.4 - 5.3 mmol/L 10/27/2023 10:22 AM [facility] Chloride 100 98 - 107 mmol/L 10/27/2023 10:22 AM [facility] Carbon Dioxide (CO2) 26 22 - 29 mmol/L 10/27/2023 10:22 AM [facility] Anion Gap 13 7 - 15 mmol/L 10/27/2023 10:22 AM [facility] Urea Nitrogen 35.6(H) 8.0 - 23.0 mg/dL 10/27/2023 10:22 AM [facility] Creatinine 1.44(H) 0.51 - 0.95 mg/dL 10/27/2023 10:22 AM [facility] GFR Estimate 36(L) >60 mL/min/1. 73m2 10/27/2023 10:22 AM [facility] Calcium 9.0 8.8 - 10.2 mg/dL 10/27/2023 10:22 AM [facility] Glucose 99 70 - 99 mg/dL 10/27/2023 10:22 AM [facility] Blood BLOOD SPECIMEN / Unknown Venipuncture / Unknown 10/27/2023 7:56 AM LAND DEVELOPER 10/27/2023 9:51 AM LAND DEVELOPER Yeimy Almazan APRN [facility] - BLOOD ORDER CHARISMA Final Result [facility] [address], [address] [address], [facility] [phone] * T4 free (10/06/2023 6:08 AM LAND DEVELOPER) Free T4 1.27 0.90 - 1.70 ng/dL 10/06/2023 11:37 AM LAND DEVELOPER LABORATORY Blood STRUCTURE OF RIGHT HAND / Unknown Venipuncture / Unknown 10/06/2023 6:08 AM LAND DEVELOPER 10/06/2023 9:52 AM LAND DEVELOPER Yeimy Almazan APRN [facility] - BLOOD ORDER CHARISMA Final Result LABORATORY [facility] [address], [address] [place] [address], [facility] [phone] * UA Macroscopic with reflex to Microscopic and Culture (09/28/2023 6:38 PM LAND DEVELOPER) Color Urine Yellow Colorless, Straw, Light Yellow, Yellow 09/28/2023 6:50 PM LAND DEVELOPER [facility] Appearance Urine Clear Clear 09/28/20 6:50 PM LAND DEVELOPER [facility] Glucose Urine Negative Negative mg/dL 09/28/2023 6:50 PM LAND DEVELOPER [facility] Bilirubin Urine Negative Negative 6:50 PM LAND DEVELOPER [facility] Ketones Urine Negative Negative mg/dL 09/28/2023 6:50 PM LAND DEVELOPER [facility] Specific [place] Urine 1.012 1.003 - 1.035 09/28/2023 6:50 PM LAND DEVELOPER [facility] Blood Urine Negative Negative 09/28/2023 6:50 PM LAND DEVELOPER [facility] pH Urine 5.0 5.0 - 7.0 09/28/2023 6:50 PM LAND DEVELOPER [facility] Protein Albumin Urine Negative Negative mg/dL 09/28/2023 6:50 PM LAND DEVELOPER [facility] Urobilinogen Urine Normal Normal, 2.0 mg/dL 09/28/2023 6:50 PM LAND DEVELOPER [facility] Nitrite Urine Negative Negative 09/28/2023 6:50 PM LAND DEVELOPER [facility] Leukocyte Esterase Urine Negative Negative 09/28/2023 6:50 PM LAND DEVELOPER [facility] Urine URINE SPECIMEN OBTAINED BY CLEAN CATCH PROCEDURE / Unknown Non-blood Collection / Unknown 09/28/2023 6:38 PM LAND DEVELOPER 09/28/2023 6:45 PM LAND DEVELOPER Narrative UR LABORATORY - 09/28/2023 6:50 PM LAND DEVELOPER Microscopic not indicated Kasey Covington MD LAB - URINE ORDERABLES Final Re sult UR LABORATORY [facility] [address] [place] [address], [address] [place] [address], [facility] [phone] * Hepatic panel (09/28/2023 1:51 PM LAND DEVELOPER) Protein Total 7.0 6.4 - 8.3 g/dL 09/28/2023 3:58 PM LAND DEVELOPER [facility] Albumin 4.0 3.5 - 5.2 g/dL 09/28/2023 3:58 PM LAND DEVELOPER [facility] Bilirubin Total 0.4 <=1.2 mg/dL 09/28/2023 3:58 PM LAND DEVELOPER [facility] Alkaline Phosphatase 94 35 - 104 U/L 09/28/2023 3:58 PM LAND DEVELOPER [facility] AST 09/28/2023 3:58 PM LAND DEVELOPER [facility] Comment: Unsatisfactory specimen - hemolyzed [...] 0 - 50 U/L 09/28/2023 3:58 PM LAND DEVELOPER [facility] Comment:Reference intervals for this test were updated on 05/05/2023 to more accurately reflect our healthy population. There may be differences in the flagging of prior results with similar values performed with this method. Interpretation of those prior results can be made in the context of the updated reference intervals. Bilirubin Direct <0.20 0.00 - 0.30 mg/dL 09/28/2023 3:58 PM LAND DEVELOPER [facility] Blood BLOOD SPECIMEN / Unknown Venipuncture / Unknown 09/28/2023 1:51 PM LAND DEVELOPER 09/28/2023 2:25 PM LAND DEVELOPER us Kasey Covington MD LAB - BLOOD ORDERABLES Final Re sult UR LABORATORY [facility] [address] [facility], [address] [place] [address], [facility] [phone] * CBC with platelets (09/28/2023 11:03 AM LAND DEVELOPER) WBC Count 8.7 4.0 - 11.0 10e3/uL 09/28/2023 11:10 AM LAND DEVELOPER [facility] RBC Count 4.46 3.80 - 5.20 10e6/uL 09/28/2023 11:10 AM LAND DEVELOPER [facility] Hemoglobin 14.7 11.7 - 15.7 g/dL 09/28/2023 11:10 AM LAND DEVELOPER [facility] Hematocrit 43.7 35.0 - 47.0 % 09/28/2023 11:10 AM LAND DEVELOPER [facility] MCV 98 78 - 100 fL 09/28/2023 11:10 AM LAND DEVELOPER [facility] MCH 33.0 26.5 - 33.0 pg 09/28/2023 11:10 AM LAND DEVELOPER [facility] MCHC 33.6 31.5 - 36.5 g/dL 09/28/2023 11:10 AM LAND DEVELOPER [facility] RDW 13.2 10.0 - 15.0 % 09/28/2023 11:10 AM LAND DEVELOPER [facility] Platelet Count 236 150 - 450 10e3/uL 09/28/2023 11:10 AM LAND DEVELOPER [facility] Blood STRUCTURE OF RIGHT UPPER LIMB / Unknown Venipuncture / Unknown 09/28/2023 11:03 AM LAND DEVELOPER 09/28/2023 11:07 AM LAND DEVELOPER us Kasey Covington MD LAB - BLOOD ORDERABLES Final Re sult UR LABORATORY [facility] [address] [facility], [address] [place] [phone], [facility] [phone] * (ABNORMAL) Lipid Profile (09/15/2023 5:49 AM [...] Greater than or equal to 220 mg/dL Cortes Salvador MD LAB - BLOOD ORDERABLES Final Result [facility] [place] [facility] [address] [facility], [address] [place] [address], [facility] [phone] from Last 3 Months or Most Recently Relevant to Health Maintenance Insurance [facility] [employer] MEDICARE [facility] [employer] MEDICARE [employer] [employer] Advance Directives For more information, please contact: [phone] Documents on File Type Date Recorded Patient Commercial Technician Expl anation Advance Directives and Livin g [...] patie nt/ legal decision maker Care Teams Engine Oiler Relationship Specialty Start Date End Date Yari Craig PA-C [facility] [address] [place] [id number] PCP - General 09/15/23 Vasile Reece, PhD LP [address] [place] [id number] Neuropsychology 10/02/23 Amber Titus APRN [facility] [address] [place] [phone] Nurse Practitioner Psychiatry & Neurology Vascular Neurology 10/24/23 Keerthi Duff PA-C [address] [address] Physician Leather Grader Urology 09/02/24 Amber Titus APRN [facility] [address] [place] [address] Assigned Surgical Provider 09/15/24
--- OUTSIDE RECORDS SUMMARY | 2024-11-28 12:06 | XMS_ITS | Encounter Summary ---
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) [address] [address] Phone: tel: Referral ID Status Reason Start Date Expiration Date Visits Re quested Visits Authorized [id number] Closed 10/14/2024 11/23/2024 75 32 Encounter Details Date Type Department Care Team (Late st Contact Info) Description 10/19/2024 9:30 AM LOWER IN SUPERVISOR Therapy Visit [address] [address] TachoAmber gomez APRN CNP [facility] [address] [place] [address] Shannon Luis, OTR [place] [address] [address] Cerebrovascular accident (CVA) due to embolism of [...] as of this encounter Progress Notes * Shannon Luis, OTR - 10/19/2024 9:30 AM CST OCCUPATIONAL THERAPY EVALUATION Type of Visit: Evaluation Fall Risk Screen: Fall screen completed by: OT Have you fallen 2 or more times in the past year?: No Have you fallen and had an injury in the past year?: No Is patient a fall risk?: No Subjective Presenting condition or subjective complaint: Memory and cognitive changes Date of onset: 09/15/23 Relevant medical history: Katelyn is a pleasant 83 year old, ambidextrous female who presents to OP OT for further evaluation of memory and cognitive changes over the course of the last year. Per neurology visit with Amber Titus APRN CNP on 10/11/24: ???She was hospitalized at [facility] on 09/15/23. Prior to the hospital stay, doloreshad a past medical history of f Afib on Xarelto, HTN, Crohn's disease, GERD, Migraine and former smoker. She presented to the hospital with right gaze deviation, left face/arm/leg weakness and dysarthria...CTA with right CUTTING INSPECTOR and right ICA occlusion; she was outside of TNK window but underwent mechanical thrombectomy with TICI 3B. MRI with infarcts of the R midbrain, thalamus and occipital region... Today, Tamra is accompanied by her daughter and son-in-law (Patricia Barbosa) who provide most of the review of systems and history. Tamra reports I have been better but denies specific complaint. In regards to her stroke history, there has been no notable change in her left visual field cut or weakness. No new neurological symptoms or concerns. She continues on Xarelto without identified concern. Blood pressure continues to be variable. They do have as needed clonidine available which they only need to use 1-2 times per year. Primary concern of doing family today is cognitive changes. At her last visit they noted that therehad actually been significant improvement in cognition. However, this trend has not continued. Family does note that she already had some pre-existing cognitive symptoms prior to the stroke, primarily short-term memory loss. In the past 4-5 months there has been significant worsening of the short-term memory loss along with frequent disorientation to date and time. She has been having some visualhallucinations such as seeing a little going dancing, along with some auditory hallucinations such as believing people are knocking on her door. She also occasionally has delusions such as believing her daughter for her late have spent the night with her when they have not. In addition she is having sleep disturbance including intermittent sleepwalking and frequently awaking in the middleof the night thinking it is morning. She unfortunately has experienced several deaths of people close to her in the past couple of months which is placing a large psychological burden on her. She has not been as active in her community activities, although she does continue to engage in weekly coffee meetings and monthly blood clots. She does live fully independently in a condo, but her family notes they are starting to plan for her transition to live with them potentially in the next year. Her family provides her meals but she isgenerally independent with dressing, bathing and noted daily activities. She has had issues with recurrent UTIs in the past year. She is scheduled to see urology next year.She restarted oxybutynin this summer, although there has not been notable benefit to urinary symptoms or UTIs since restarting this medication.?? Dates & types of surgery: (Patient-Rptd) gallbladder 1981 hysterectomy ?; see EHR for details Prior diagnostic imaging/testing results: (Patient-Rptd) MRI; CT scan; X-ray ; see above and EHR for details Prior therapy history for the same diagnosis, illness or injury: (Patient-Rptd) Yes (Patient-Rptd) 09/15_~04/16 Prior Level of Function Transfers: Independent Ambulation: Independent, Assistive equipment ADL: Independent, Assistive equipment IADL: Driving, Finances, Housekeeping, Laundry, Meal preparation, Medication management (prior to her stroke a year ago) Living Environment Social support: (Patient-Rptd) Alone (son in lawDave, reports they do have cameras installed in her place to keep an eye on her especially as she has started sleepwalking) Type of home: (Patient-Rptd) Apartment/condo Stairs to enter the home: (Patient-Rptd) No Ramp: (Patient-Rptd) No Stairs inside the home: (Patient-Rptd) No Help at home: (Patient-Rptd) Home management tasks (cooking, cleaning); Medication and/or finances;Assist for driving and community activities; Emergency call system Equipment owned: (Patient-Rptd) Four-point cane; Walker with wheels; Grab bars; Bath bench Employment: (Patient-Rptd) No Retired from [employer], cleric work with volunteers and supervising Hobbies/Interests: (Patient-Rptd) reading (belongs to a book club), painting, was playing some Mahjong at the [employer] in [place] but her residential recycle driver to this activity recently Patient goals for therapy: To assess safety and IND with daily activities and improve memory/cognitive skills Pain assessment: Pain present from RA, primarily in her hands and knees, doesn't bother her much while she is sitting but more so when she is active and during the day, just had an injection about a month ago which seems to have helped significantly Objective Cognitive Status Examination Orientation: Oriented to person, place and time (knows building but disoriented to city on MoCA today - see below) Level of Consciousness: Alert Follows Commands and Answers Questions: 100% of the time, Follows single step instructions Personal Safety and Judgement: Intact, At risk behaviors demonstrated - appears to have good awareness of cognitive changes but not fully aware of distinguishing reality from hallucinations per family Memory: Impaired Attention: Selective attention impaired, difficulty ignoring irrelevant stimuli, Alternating attention impaired, difficulty shifting between tasks, Divided attention impaired, difficulty with simultaneous tasks, Difficulty with dual tasking Organization/Problem Solving: Problem solving impaired Executive Function: Working memory impaired, decreased storage of information for performing tasks,Cognitive flexibility impaired, Planning ability impaired Comments: Son in , Dave, reports that Katelyn insists she keeps hearing people knocking on her doorin the middle of the night, but they are unsure if this is accurate or if it is a hallucination. She has been experiencing some auditory and visual hallucinations. Has had recurrent UTIs in the last year, which is a confounding factor in her cognition. Dave reports she is having trouble with remaining oriented to days/nights and they've noticed this is often a sign of her having a UTI. She has an appointment later today to further assess bacteria and see if UTI has been fully treated. She has also lost her brother in law, best friend for years, and friend in the condo. Katelyn reports My memoryis terrible - notes she feels her LTM is fairly strong but has significant difficulty with STM. Endorses difficulty with word-finding and needing increased time for cognitive processing. Cognitive Screen: MoCA 8.1 Details: To further assess cognition, administered the Madison Cognitive Assessment (MoCA), which was designed as a rapid screening instrument for mild cognitive dysfunction with a score of 26/30 considered normal. Administered MoCA 8.1 with pt scoring 25/30 (MIS = 1115), indicating potential mild cognitive impairment. Pt scored 4/5 on visuospatial/executive (error with cube copy), 3/3 on naming, 6/6 on attention, 2/3 on language (gets 8 words in 1 min with fluency), 2/2 on abstraction, 3/5 on delayed recall (recognizes final two words with multiple choice cues), and 5/6 on orientation (disoriented to city). VISUAL SKILLS Visual Acuity: Wears glasses (progressive lens; reports her eyes tire quickly) Visual Field: Left visual field cut from her stroke about a year ago, has a prism in her glasses toassist, she lost a significant portion of her left visual field cut per son in Dave braun Visual Attention: Appears normal Oculomotor: Appears normal SENSATION: Reports she gets some numbness when her toes and fingers get cold including before bed. Otherwise denies n/t. POSTURE: Sitting Posture: Rounded shoulders, Forward head RANGE OF MOTION: UE AROM WFL STRENGTH: UE Strength WFL, LE Strength WFL; Ambidextrous, writes with R hand; reports generalized global weakness - I'm not as strong as I used to be. MUSCLE TONE: WFL COORDINATION: WFL BALANCE: Diminished balance with STS and ambulation. Worked with PT following her stroke. Has 4WW that she uses both from home mobility and community mobility that she feels works well for her. Denies falls in the last year. FUNCTIONAL MOBILITY Assistive Device(s): Walker (four wheeled) Ambulation: mod I, increased time, AE Wheelchair: n/a BED MOBILITY: WFL, Independent; Reports trouble getting out of bed as her feet get tangled in her blankets. Reports she rolls to her side and pushes herself up but her shoulder gets tired/sore. Does have adjustable bed but doesn't often adjust it. TRANSFERS: [facility], Independent - relies on hand hold BATHING: [facility], Independent Equipment: Grab bar, Hand-held shower head, Shower chair/Tub bench; walk-in shower UPPER BODY DRESSING: [facility], Independent Equipment: Dressing stick, Manager Diesel - doesn't often use LOWER BODY DRESSING: [facility], Independent Equipment: Manager Diesel, Sock-aid - doesn't often use TOILETING: [facility], Independent; notes she has urgency with using the bathroom due to Crohn's disease Equipment: Grab bar GROOMING: [facility], Independent Equipment: n/a EATING/SELF FEEDING: [facility], Independent Equipment: n/a; reports she has a good appetite ACTIVITY TOLERANCE: Reports fatigue most of the day, and she rests/sleeps most of the day. Reports she sleeps well overnight as she takes a sleep aid; estimates she gets around 8+ hours of sleep eachnight. Wakes once for the bathroom usually and is able to return to bed. Estimates she goes for a walk around her building a couple times a week but less than 1x/day frequency. She does go for mesexh0q/week in one building and 2x/week in another building and book club 1x/month and [employer] game 1x/month. INSTRUMENTAL ACTIVITIES OF DAILY LIVING (IADL): Medication management: assist from son in law, Dave, and daughter, Patricia. They setup electronic medbox dispenser that alarms when it is time to take the medications. Denies forgetfulness with thismethod. Meal Planning/Prep: doesn't have access to use stove/oven; she is able to use her microwave. OLAF and dtr can turn on stove to allow her to bake as desired. Otherwise meals provided by family members. Home/Wafer Fab Technician: Daughter assists with household cleaning and laundry. Katelyn is trying todo more of the laundry (in-unit). Son in law/daughter manage finances for Katelyn. Has had a couple attempted financial scams but has not fallen victim to these scams. 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 The following significant findings have been identified: Impairedactivity tolerance, Impaired balance, Impaired cognition, Impaired communication, Impaired mobility, Impaired strength, Pain, and Impaired visual perception. These identified deficits interfere with their ability to perform self care tasks, recreational activities, slip maker, driving , household mobility, community mobility, medication management, financial economist, meal planning and preparation, and community or volunteer activities as compared to previous level of function. Clinical Decision Making (Complexity): Assessment of Occupational Performance: 5 or more Performance Deficits Occupational Performance Limitations: bathing/showering, toileting, functional mobility, communication management, driving and community mobility, health management and maintenance, home establishment and management, meal preparation and cleanup, shopping, sleep, leisure activities, and social participation Clinical Decision Making (Complexity): Low complexity PLAN OF CARE Treatment Interventions: Interventions: Cognitive Skills, Community/Work Reintegration, Self-Care/Home Management, Therapeutic Activity, Therapeutic Exercise Longterm Goals OT Goal 1 Goal Identifier: Cognition/Safety Goal Description: Patient and family to verbalize understanding of MoCA and Cognitive Performance Test results and identify 3 strategies to increase patient's safety and independence in the home and community setting. Rationale: In order to maximize safety and independence with performance of self-care activities;Inorder to maximize safety and independence with ADL/IADLs;In order to maximize safety and independence with cognitive function within the home or community;In order to maximize independence with tasks requiring functional cognition/executive function for school, work, medication or financial mgmt Target Date: 01/17/25 OT Goal 2 Goal Identifier: Cognitive HEP Goal Description: Pt will demonstrate carryover of 3+ cognitive HEP activities between sessions to promote skills for safety and IND with ADLs/IADLs. Rationale: In order to maximize safety and independence with performance of self-care activities;Inorder to maximize safety and independence with ADL/IADLs;In order to maximize safety and independence with cognitive function within the home or community;In order to maximize independence with tasks requiring functional cognition/executive function for school, work, medication or financial mgmt Target Date: 01/17/25 Frequency of Treatment: 1x/week Duration of Treatment: up to 90 days (extended due to anticipated pt scheduling conflicts) Recommended Referrals to Other Professionals: Speech Language Pathology (already scheduled) Education Assessment: Learner/Method: Patient;Family;Listening (son in law, Dave) Education Comments: OT evaluation completed. Educated on OT role and POC. Educated on role of cognitive activities to promote skills for safety and IND with ADLs/IADLs and recommended continuation ofgames/activities as well as trial of new/unfamiliar options. Risks and benefits of evaluation/treatment have been explained. Patient/Family/caregiver agrees with Plan of Care. Evaluation Time: OT Christian Ulrich Minutes (99188): 50 Signing Clinician: ARLETTE Contreras R IN SUPERVISOR documented in this encounter Plan of Treatment Upcoming Encounters Date Type Department Care Team (Late st Contact Info) Description 12/23/2024 3:00 PM LOWER IN SUPERVISOR Office Visit [facility] [place] [address] [facility] [place] [phone] Yari Craig PA-C [facility] [address] [place] [address] Keerthi Duff PA-C [address] [address] 02/18/2025 8:00 AM CDT Office Visit [facility] Neuropsychology [address] [place] [phone] Vasile Reece, PhD [address] [address] 02/28/2025 8:00 AM CDT Hospital Encounter [facility] PeriOp Services [address] [place] [phone] Yvon Ordonez MD [address] [address] 02/28/2025 8:00 AM CDT - 02/28/2025 8:50 AM CDT Surgery [facility] PeriOp Services [address] [place] [address] Yvon Ordonez MD [address] [address] Colonoscopy Scheduled Procedures Name Priority Associated Diagnoses [...] urgency documented in this encounter Care Teams Associate Team Physician Relationship Specialty Start Date End Date Yari Craig PA-C [facility] [address] [facility] [place] [address] PCP - General 09/15/23 Vasile Reece, PhD LP [address] [place] [phone] MD Neuropsychology 10/02/23 Amber Titus APRN HAZARDOUS MATERIALS ANALYST [facility] [address] [place] [phone] Nurse Practitioner Psychiatry & Neurology Vascular Neurology 10/24/23 Keerthi Duff PA-C [address] [address] Physician Senior Firewall Engineer Urology 09/02/24 Amber Titus APRN HAZARDOUS MATERIALS ANALYST NEUROLOGY [facility] [address] [place] [phone] Assigned Surgical Provider 09/15/24 documented as of this encounter
--- OUTSIDE RECORDS SUMMARY | 2024-11-28 12:06 | XMS_ITS | Encounter Summary ---
Author Organization [facility] Address [address] [place] [address] Care Team Providers Care Steel Estimator Name Role Phone Yari Craig PA-C Primary Care Provider [phone] Vasile Reece PhD LP Unavailable [phone] Amber Titus APRN MEDICAL ADMINISTRATIVE ASSISTANT Unavailable [phone] Keerthi Duff PA-C Unavailable Amber Titus APRN MEDICAL ADMINISTRATIVE ASSISTANT Unavailable [phone] Encounter Details Date Type Department Care Team (Late st Contact Info) Description 10/12/2024 [facility] Medical Advice [facility] Neurology Clinics [address], [address] [place] [phone] Janelle Nj, RN Social History Tobacco Use Types Packs/Day Years [...] st Contact Info) Description 12/23/2024 3:00 PM FARM MACHINE TENDER Office Visit [facility] [place] [address] [facility] [address] [place] [address] Yari Craig PAMarcelo [address] [place] [address] Keerthi Duff PA-C [address] [address] 02/18/2025 8:00 AM CDT Office Visit [facility] Neuropsychology [place] [address] [facility] 3rd [place] [phone] Vasile Reece, PhD [address] [address] 02/28/2025 8:00 AM CDT Hospital Encounter [facility] Peri Services [address] [place] [address] Yvon Ordonez MD [facility] [address] [place] [address] 02/28/2025 8:00 AM CDT - 02/28/2025 8:50 AM CDT Surgery [facility] [address] [place] [phone] Yvon Ordonez MD [facility] [address] [place] [address] Colonoscopy Scheduled Procedures Name Priority Associated Diagnoses Date/Ti me COLONOSCOPY Crohn's disease without complication, unspecified gastrointestinal tract location (H) Incontinence of feces with fecal urgency H/O: stroke Rectal urgency 02/28/2025 8:00 AM CDT documented as of this encounter Visit Diagnoses Not on filedocumented in this encounter Care Teams Steel Estimator Relationship Specialty Start Date End Date Yari Craig PA-C [address] [place] [address] PCP - General 09/15/23 Vasile Reece, PhD LP [address] [place] [phone] MD Neuropsychology 10/02/23 Amber Titus APRN MEDICAL ADMINISTRATIVE ASSISTANT [facility] [address] [place] [address] Nurse Practitioner Psychiatry & Neurology Vascular Neurology 10/24/23 Keerthi Duff PA-C [address] [phone] Physician Specialty [facility] 09/02/24 Amber Titus APRN MEDICAL ADMINISTRATIVE ASSISTANT [facility] [address] [place] [phone] Assigned Surgical Provider 09/15/24 documented as of this encounter
--- OUTSIDE RECORDS SUMMARY | 2024-11-28 12:06 | XMS_ITS | Encounter Summary ---
Author Organization [facility] Address [address] [place] [address] Care Team Providers Care Plastic Mixer Name Role Phone Yari Craig PA-C Primary Care Provider [phone] Vasile Reece PhD LP Unavailable [phone] Amber Titus APRN SITE LEASING AGENT Unavailable [phone] Keerthi Duff PA-C Unavailable [phone] Amber Titus APRN SITE LEASING AGENT Unavailable [phone] Encounter Details Date Type Department Care Team (Latest Contact Info) Description 10/15/2024 Travel Social History Tobacco Use Types Packs/Day Years [...] st Contact Info) Description 12/23/2024 3:00 PM FLAT SORTER PROCESSOR Office Visit [facility] [place] [address] [facility] [address] [place] [phone] Yari Craig PA-C [facility] [address] [facility], [place] [phone] Keerthi Duff PA-C [address] [facility] [address] [place] [address] 02/18/2025 8:00 AM CDT Office Visit [facility] Neuropsychology [address] [phone] Vasile Reece, PhD [address] [address] 02/28/2025 8:00 AM CDT Hospital Encounter [facility] PeriOp Services [address] [place] [address] Yvon Ordonez MD [address] [address] 02/28/2025 8:00 AM CDT - 02/28/2025 8:50 AM CDT Surgery [facility] PeriOp Services [address] [place] [address] Yvon Ordonez MD [facility] [address] [place] [address] Colonoscopy Scheduled Procedures Name Priority Associated Diagnoses Date/Ti me COLONOSCOPY Crohn's disease without complication, unspecified gastrointestinal tract location (H) Incontinence of feces with fecal urgency H/O: stroke Rectal urgency 02/28/2025 8:00 AM CDT documented as of this encounter Visit Diagnoses Not on filedocumented in this encounter Care Teams Plastic Mixer Relationship Specialty Start Date End Date Yari Craig PA-C [facility] [address] [place] [address] PCP - General 09/15/23 Vasile Reece, PhD LP [address] [place] [phone] MD Neuropsychology 10/02/23 Amber Titus APRN SITE LEASING AGENT [facility] [address] [place] [address] [phone] Nurse Practitioner Psychiatry & Neurology Vascular Neurology 10/24/23 Keerthi Duff PA-C [address] [address] Physician Towel Sorter Urology 09/02/24 Amber Titus APRN SITE LEASING AGENT [facility] [address] [place] [address] [phone] Assigned Surgical Provider 09/15/24 documented as of this encounter
--- OUTSIDE RECORDS SUMMARY | 2024-11-28 12:06 | XMS_ITS | Encounter Summary ---
Author Organization [facility] Address [address] [place] [address] Care Team Providers Care Human Resource Analyst Name Role Phone Yari Craig PA-C Primary Care Provider [phone] Vasile Reece PhD LP Unavailable [phone] Amber Titus APRN NIGHT CLUB MANAGER Unavailable [phone] Keerthi Duff PA-C Unavailable [phone] Amber Titus APRN NIGHT CLUB MANAGER Unavailable [phone] Encounter Details Date Type Department Care Team (Latest Contact Info) Description 10/19/2024 Travel Social History Tobacco Use Types Packs/Day [...] st Contact Info) Description 12/23/2024 3:00 PM GYROSCOPE TECHNICIAN Office Visit [facility]rology Clinic [place] [address] [facility] [address] [place] [phone] Yari Craig PA-C [facility] [address] [facility] [place], [place] [phone] Keerthi Duff PA-C [address] [facility] [address] [place] [address] 02/18/2025 8:00 AM CDT Office Visit [facility] Neuropsychology [address] [phone] Vasile Reece, PhD [address] [address] 02/28/2025 8:00 AM CDT Hospital Encounter [facility] [address] [place] [address] Yvon Ordonez MD [address] [address] 02/28/2025 8:00 AM CDT - 02/28/2025 8:50 AM CDT Surgery [facility] [address] [place] [address] Yvon Ordonez MD [facility] [address] [place] [address] Colonoscopy Scheduled Procedures Name Priority Associated Diagnoses Date/Ti me COLONOSCOPY Crohn's disease without complication, unspecified gastrointestinal tract location (H) Incontinence of feces with fecal urgency H/O: stroke Rectal urgency 02/28/2025 8:00 AM CDT documented as of this encounter Visit Diagnoses Not on filedocumented in this encounter Care Teams Human Resource Analyst Relationship Specialty Start Date End Date Yari Craig PA-C [facility] [address] [place] [address] PCP - General 09/15/23 Vasile Reece, PhD LP [address] [place] [address] [phone] MD Neuropsychology 10/02/23 Amber Titus APRN NIGHT CLUB MANAGER [facility] [address] [place] [address] Nurse Practitioner Psychiatry & Neurology Vascular Neurology 10/24/23 Keerthi Duff PA-C [address] [address] Physician Rigging Up Man Urology 09/02/24 Amber Titus APRN NIGHT CLUB MANAGER NEUROLOGY [facility] [address] [place] [address] [phone] Assigned Surgical Provider 09/15/24 documented as of this encounter
--- OUTSIDE RECORDS SUMMARY | 2024-11-28 12:06 | XMS_ITS | Encounter Summary ---
Author Organization [facility] Address [address] [place] [address] Care Team Providers Care Nurse Executive Name Role Phone Yari Craig PA-C Primary Care Provider Vasile Reece PhD LP Unavailable [phone] Amber Titus APRN EYE CARE PROFESSIONAL Unavailable Amber Titus APRN EYE CARE PROFESSIONAL Unavailable Keerthi Duff PA-C Unavailable Amber Titus APRN EYE CARE PROFESSIONAL Unavailable [phone] Encounter Details Date Type Department Care Team (Late st Contact Info) Description 06/01/2024 [facility] Advice [facility] Neurology Clinics [address], [address] [place] [address] Amber Titus APRN EYE CARE PROFESSIONAL NEUROLOGY [facility] [address] [place] [address] Social History Tobacco Use Types Packs/Day [...] st Contact Info) Description 12/23/2024 3:00 PM MERCHANDISER SEASONAL Office Visit [facility] [place] [address] [facility] [address] [place] [phone] Yari Craig PA-C [facility] [address] [facility] [place] [address] Keerthi Duff PA-C [address] [address] 02/18/2025 8:00 AM CDT Office Visit [facility] Neuropsychology [address] [place] [phone] Vasile Reece, PhD [address] [address] 02/28/2025 8:00 AM CDT Hospital Encounter [facility] [address] [place] [address] Yvon Ordonez MD [facility] [address] [place] [address] 02/28/2025 8:00 AM CDT - 02/28/2025 8:50 AM CDT Surgery [facility] [address] [place] [address] Yvon Ordonez MD [facility] [address] [place] [address] Colonoscopy Scheduled Procedures Name Priority Associated Diagnoses Date/Ti me COLONOSCOPY Crohn's disease without complication, unspecified gastrointestinal tract location (H) Incontinence of feces with fecal urgency H/O: stroke Rectal urgency 02/28/2025 8:00 AM CDT documented as of this encounter Visit Diagnoses Not on filedocumented in this encounter Care Teams Nurse Executive Relationship Specialty Start Date End Date Yari Craig PA-C [place] [phone] [facility] [place] [address] PCP - General 09/15/23 Vasile Reece, PhD LP [address] [place] [address] [phone] Neuropsychology 10/02/23 Amber Titus APRN EYE CARE PROFESSIONAL NEUROLOGY [facility] [address] [place] [address] [phone] Nurse Practitioner Psychiatry & Neurology Vascular Neurology 10/24/23 Amber Titus APRN EYE CARE PROFESSIONAL NEUROLOGY [facility] [address] [place] [address] [phone] Assigned Behavioral Health Provider 03/16/24 09/14/24 Keerthi Duff PA-C [address] [phone] Physician Final Assembly Worker Urology 09/02/24 Amber Titus APRN EYE CARE PROFESSIONAL NEUROLOGY [facility] [address] [place] [address] Assigned Surgical Provider 09/15/24 documented as of this encounter
--- OUTSIDE RECORDS SUMMARY | 2024-11-28 12:06 | XMS_ITS | Encounter Summary ---
Author Organization [facility] Address [address] [place] [address] Care Team Providers Care Veneer Redrier Name Role Phone Yari Craig PA-C Primary Care Provider [phone] Vasile Reece PhD LP Unavailable [phone] Amber Titus APRN EXECUTIVE SECRETARY SOCIAL WELFARE Unavailable [phone] Keerthi Duff PA-C Unavailable [phone] Amber Titus APRN EXECUTIVE SECRETARY SOCIAL WELFARE Unavailable Reason for Visit * Reason Comments Med Change Request Encounter Details Date Type Department Care Team (Late st Contact Info) Description 11/03/2024 [facility] Neurology Clinics [address], [address] [place] [address] Amber Titus APRN EXECUTIVE SECRETARY SOCIAL WELFARE NEUROLOGY [facility] [address] [place] [address] Med Change Request Social History Tobacco Use Types Packs/Day Years [...] on file documented as of this encounter Miscellaneous Notes * Telephone Encounter - Janelle Nj RN - 11/05/2024 9:34 AM LEAD FRONT END DEVELOPER Spoke with pt's daughter. She states the pt is tolerating the medication well. She is unsure if there has been a drastic improvement thus far, but would like to continue the pt on the med for now since it was started less than a month ago. 90 day supply with 1 refill was sent to pt's preferred pharmacy and informed daughter it should be available either later today or sometime over the weekend. Janelle MICHELLE, RN, SCRN RN Stroke Neurology Manager Media Relations [facility] Neuroscience Service Line FRONT END DEVELOPER * Telephone Encounter - Janelle Nj RN - 11/03/2024 10:46 AM LEAD FRONT END DEVELOPER Images from the original note were not included. Stroke RN Care Coordination - Unable to Reach / Voicemail Note Stroke RN Manager Media Relations Outreach: Med Change Request Outreach attempted x 1. Left message on daughter's voicemail with call back information and requested return call. Stroke RN Manager Media Relations will try to reach daughter again in 1-2 business days. Janelle MICHELLE, RN, SCRN RN Stroke Neurology Manager Media Relations [facility] Neuroscience Service Line FRONT END DEVELOPER * Telephone Encounter - Amber Titus APRN CNP - 11/03/2024 10:32 AM LEAD FRONT END DEVELOPER As this is a new medication can we call and check on how she is doing since starting it? If she is tolerating well I would be happy to send in a 90 day supply FRONT END DEVELOPER * Telephone Encounter - Janelle Nj RN - 11/03/2024 10:01 AM LEAD FRONT END DEVELOPER Pt appears to reside at [facility]. Routing to Amber BLOCK, do you plan on supporting refills on this medication, or do you want us to request refills through PCP. Looks like PCP is either Yari Craig through the [facility] or maybe she has a new PCP team through [facility]. Janelle Nj BS, RN, SCRN RN Stroke Neurology Manager Media Relations [facility] Neuroscience Service Line FRONT END DEVELOPER documented in this encounter Plan of Treatment Upcoming Encounters Date Type Department Care Team (Late st Contact Info) Description 12/23/2024 3:00 PM LEAD FRONT END DEVELOPER Office Visit [facility] Urology Clinic [address] [place] [phone] Yari Craig PA-C [facility] & [address] [place] [address] Keerthi Duff PA-C [address] [phone] 02/18/2025 8:00 AM CDT Office Visit [facility] Neuropsychology [address] 3rd [place] [address] Vasile Reece, PhD [address] [address] 02/28/2025 8:00 AM CDT Hospital Encounter [facility] PeriOp Services [address] [place] [address] Yvon Ordonez MD [address] [address] 02/28/2025 8:00 AM CDT - 02/28/2025 8:50 AM CDT [facility] [address] [place] [address] Yvon Ordonez MD [address] [address] Colonoscopy Scheduled Procedures Name Priority Associated Diagnoses [...] urgency documented in this encounter Care Teams Veneer Redrier Relationship Specialty Start Date End Date Yari Craig PA-C [facility] [address] [place] [address] PCP - General 09/15/23 Vasile Reece, PhD [address] [place] [address] Neuropsychology 10/02/23 Amber Titus APRN EXECUTIVE SECRETARY SOCIAL WELFARE NEUROLOGY [facility] [address] [place] [address] Nurse Practitioner Psychiatry & Neurology Vascular Neurology 10/24/23 Keerthi Duff PA-C [address] [address] Physician Final Cleaner Urology 09/02/24 Amber Titus APRN EXECUTIVE SECRETARY SOCIAL WELFARE NEUROLOGY [facility] [address] [place] [address] Assigned Surgical Provider 09/15/24 documented as of this encounter
--- OUTSIDE RECORDS SUMMARY | 2024-11-28 12:58 | XMS_ITS | Referral Summary ---
Author Organization [facility] Address [address] [place] [address] Care Team Providers Care Pediatrician Name Role Phone Yari Craig PA-C Primary Care Provider [phone] Vasile Reece PhD LP Unavailable Amber Titus APRN CUTTER HEAD SHARPENER Unavailable Keerthi Duff PA-C Unavailable [phone] Amber Titus APRN CUTTER HEAD SHARPENER Unavailable Encounters Date Type Department Care Team Description 11/03/2024 [facility] Neurology Clinics [address], [address] [place] [address] Amber Titus APRN CUTTER HEAD SHARPENER Med Change Request 10/19/2024 Travel 10/19/2024 9:30 AM ADMIN DIR Therapy Visit [address] [address] Amber Titus DIE HOLDERShannon Conner CNP, OTR 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 - [address] [place] [address] Janelle Nj, RN 10/12/2024 Telephone [facility] Neurology [facility] - [address] [place] [address] Janelle Nj, RN Orders (Lab to Outside Facility) 10/11/2024 10:00 AM ADMIN DIR Virtual Visit [facility] Neurology 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 - [address], [address] [place] [address] Amber Titus APRN CUTTER HEAD SHARPENER 09/27/2024 MyC Medical Advice [facility] Urology Clinic [place] [phone] [facility] [address] [place] [address] Carolyn Hernandez from Last 3 [...] 36.3 C (97.3 F) 11/18/2023 3:43 PM ADMIN DIR Respiratory Rate 18 11/18/2023 3:43 PM ADMIN DIR Oxygen Saturation 95% 03/16/2024 2:40 PM CDT Inhaled Oxygen Concentration - - Weight 81 kg (178 lb 9.6 oz) 12/10/2023 2:21 PM ADMIN DIR Height 162.6 cm (5' 4) 11/18/2023 3:43 PM ADMIN DIR Body Mass Index 30.66 11/18/2023 3:43 PM ADMIN DIR Plan of Treatment Upcoming Encounters Date Type Department Care Team (Late st Contact Info) Description 12/23/2024 3:00 PM ADMIN DIR Office Visit [facility] Urology Clinic [place] [address] [facility] [address] [place] [address] Yari Craig PA-C [facility] [address] [place], [place] [phone] Keerthi Duff PA-C [address] [facility] [address] [place] [address] 02/18/2025 8:00 AM CDT Office Visit [facility] Neuropsychology [address] [phone] Vasile Reece, PhD [address] [address] 02/28/2025 8:00 AM CDT Hospital Encounter [facility] PeriOp Services [address] [place] [address] Yvon Ordonez MD [address] [address] 02/28/2025 8:00 AM CDT - 02/28/2025 8:50 AM CDT Surgery [facility] [address] [place] [address] Yvon Ordonez MD [address] [address] Colonoscopy Scheduled Procedures Name Priority Associated Diagnoses Date/Ti me COLONOSCOPY Crohn's disease without complication, unspecified gastrointestinal tract location (H) Incontinence of feces with fecal urgency H/O: stroke Rectal urgency 02/28/2025 8:00 AM CDT Procedures Procedure Name Priority Date/Time Associated Diagnosis Comments BASIC METABOLIC PANEL Routine 10/27/2023 7:56 AM ADMIN DIR Heart failure, unspecified (H) Essential (primary) hypertension T4 FREE Routine 10/06/2023 6:08 AM ADMIN DIR Hypothyroidism, unspecified Essential (primary) hypertension UA MACROSCOPIC WITH REFLEX TO MICRO AND CULTURE STAT 09/28/2023 6:38 PM ADMIN DIR HEPATIC FUNCTION PANEL Timed 09/28/2023 1:51 PM ADMIN DIR CBC WITH PLATELETS STAT 09/28/2023 11 :03 AM ADMIN DIR LIPID PROFILE Add-On 09/15/2023 5:49 AM CDT from Last 3 Months or Most Recently Relevant to Health Maintenance Results * (ABNORMAL) Basic metabolic panel (10/27/2023 7:56 AM ADMIN DIR) [facility] Sodium 139 135 - 145 mmol/L 10/27/2023 10:22 AM [facility] Comment:Reference intervals for this test were updated on 08/19/2023 to more accurately reflect our healthy population. There may be differences in the flagging of prior results with similar values performed with this method. Interpretation of those prior results can be made in the context of the updated reference intervals. Potassium 4.3 3.4 - 5.3 mmol/L 10/27/2023 10:22 AM [facility] Chloride 100 98 - 107 mmol/L 10/27/2023 10:22 AM [facility] Carbon Dioxide (CO2) 26 22 - 29 mmol/L 10/27/2023 10:22 AM [facility] Anion Gap 13 7 - 15 mmol/L 10/27/2023 10:22 AM [facility] Urea Nitrogen 35.6(H) 8.0 - 23.0 mg/dL 10/27/2023 10:22 AM [facility] Creatinine 1.44(H) 0.51 - 0.95 mg/dL 10/27/2023 10:22 AM [facility] GFR Estimate 36(L) >60 mL/min/1. 73m2 10/27/2023 10:22 AM [facility] Calcium 9.0 8.8 - 10.2 mg/dL 10/27/2023 10:22 AM [facility] Glucose 99 70 - 99 mg/dL 10/27/2023 10:22 AM [facility] Blood BLOOD SPECIMEN / Unknown Venipuncture / Unknown 10/27/2023 7:56 AM ADMIN DIR 10/27/2023 9:51 AM ADMIN DIR Yeimy Almazan APRN [facility] - BLOOD ORDER CHARISMA Final Result [facility] [address] floor, [address] [address], [facility] [phone] * T4 free (10/06/2023 6:08 AM ADMIN DIR) Free T4 1.27 0.90 - 1.70 ng/dL 10/06/2023 11:37 AM ADMIN DIR LABORATORY Blood STRUCTURE OF RIGHT HAND / Unknown Venipuncture / Unknown 10/06/2023 6:08 AM ADMIN DIR 10/06/2023 9:52 AM ADMIN DIR Yeimy Almazan APRN [facility] - BLOOD ORDER CHARISMA Final Result LABORATORY [facility] [address] floor, [address] [place] [address], [facility] [phone] * UA Macroscopic with reflex to Microscopic and Culture (09/28/2023 6:38 PM ADMIN DIR) Color Urine Yellow Colorless, Straw, Light Yellow, Yellow 09/28/2023 6:50 PM ADMIN DIR [facility] LAB[facility] Appearance Urine Clear Clear 09/28/20 6:50 PM ADMIN DIR [facility] Glucose Urine Negative Negative mg/dL 09/28/2023 6:50 PM ADMIN DIR UR LAB[facility] Bilirubin Urine Negative Negative 6:50 PM ADMIN DIR UR LABORATORY Ketones Urine Negative Negative mg/dL 09/28/2023 6:50 PM ADMIN DIR UR LABORATORY Specific [place] Urine 1.012 1.003 - 1.035 09/28/2023 6:50 PM ADMIN DIR UR LAB[facility]AT[facility] Blood Urine Negative Negative 09/28/2023 6:50 PM ADMIN DIR UR LAB[facility]ATORY pH Urine 5.0 5.0 - 7.0 09/28/2023 6:50 PM ADMIN DIR UR LAB[facility] Protein Albumin Urine Negative Negative mg/dL 09/28/2023 6:50 PM ADMIN DIR UR LAB[facility]ORY Urobilinogen Urine Normal Normal, 2.0 mg/dL 09/28/2023 6:50 PM ADMIN DIR [facility] LAB[facility] Nitrite Urine Negative Negative 09/28/2023 6:50 PM ADMIN DIR UR LAB[facility]ORY Leukocyte Esterase Urine Negative Negative 09/28/2023 6:50 PM ADMIN DIR UR LABORATORY Urine URINE SPECIMEN OBTAINED BY CLEAN CATCH PROCEDURE / Unknown Non-blood Collection / Unknown 09/28/2023 6:38 PM ADMIN DIR 09/28/2023 6:45 PM ADMIN DIR Narrative UR LABORATORY - 09/28/2023 6:50 PM ADMIN DIR Microscopic not indicated Kasey Covington MD LAB - URINE ORDERABLES Final Re sult UR LABORATORY [facility] [address] [place] [address], [address] [place] [address], [facility] [phone] * Hepatic panel (09/28/2023 1:51 PM ADMIN DIR) Protein Total 7.0 6.4 - 8.3 g/dL 09/28/2023 3:58 PM ADMIN DIR UR LABORATORY Albumin 4.0 3.5 - 5.2 g/dL 09/28/2023 3:58 PM ADMIN DIR UR LABORATORY Bilirubin Total 0.4 <=1.2 mg/dL 09/28/2023 3:58 PM ADMIN DIR UR LABORATORY Alkaline Phosphatase 94 35 - 104 U/L 09/28/2023 3:58 PM ADMIN DIR UR LABORATORY AST 09/28/2023 3:58 PM ADMIN DIR UR LAB[facility] Comment: Unsatisfactory specimen - hemolyzed [...] 0 - 50 U/L 09/28/2023 3:58 PM ADMIN DIR [facility] Comment:Reference intervals for this test were updated on 05/05/2023 to more accurately reflect our healthy population. There may be differences in the flagging of prior results with similar values performed with this method. Interpretation of those prior results can be made in the context of the updated reference intervals. Bilirubin Direct <0.20 0.00 - 0.30 mg/dL 09/28/2023 3:58 PM ADMIN DIR UR LABORATORY Blood BLOOD SPECIMEN / Unknown Venipuncture / Unknown 09/28/2023 1:51 PM ADMIN DIR 09/28/2023 2:25 PM ADMIN DIR us Kasey Covington MD LAB - BLOOD ORDERABLES Final Re sult UR LABORATORY [facility] [address] [facility], [address] [place] [address], [facility] [phone] * CBC with platelets (09/28/2023 11:03 AM ADMIN DIR) WBC Count 8.7 4.0 - 11.0 10e3/uL 09/28/2023 11:10 AM ADMIN DIR UR LABORATORY RBC Count 4.46 3.80 - 5.20 10e6/uL 09/28/2023 11:10 AM ADMIN DIR UR LABORATORY Hemoglobin 14.7 11.7 - 15.7 g/dL 09/28/2023 11:10 AM ADMIN DIR UR LABORATORY Hematocrit 43.7 35.0 - 47.0 % 09/28/2023 11:10 AM ADMIN DIR UR LABORATORY MCV 98 78 - 100 fL 09/28/2023 11:10 AM ADMIN DIR UR LABORATORY MCH 33.0 26.5 - 33.0 pg 09/28/2023 11:10 AM ADMIN DIR UR LABORATORY MCHC 33.6 31.5 - 36.5 g/dL 09/28/2023 11:10 AM ADMIN DIR UR LAB[facility]ORY RDW 13.2 10.0 - 15.0 % 09/28/2023 11:10 AM ADMIN DIR UR LABORATORY Platelet Count 236 150 - 450 10e3/uL 09/28/2023 11:10 AM ADMIN DIR UR LABORATORY Blood STRUCTURE OF RIGHT UPPER LIMB / Unknown Venipuncture / Unknown 09/28/2023 11:03 AM ADMIN DIR 09/28/2023 11:07 AM ADMIN DIR us Kasey Covington MD LAB - BLOOD ORDERABLES Final Re sult UR LABORATORY [facility] [address] [facility], [address] [place] [phone], [facility] [phone] * (ABNORMAL) Lipid Profile (09/15/2023 5:49 AM [...] - BLOOD ORDERABLES Final Result [facility] LABORATORY [facility] [place] [facility] [address] [facility], [address] [place] [address], [facility] [phone] from Last 3 Months or Most Recently Relevant to Health Maintenance Insurance [employer] MEDICARE [employer] MEDICARE [employer] Advance Directives For more information, please contact: [phone] Documents on File Type Date Recorded Patient Manager Inventory Management Expl anation Advance Directives and Livin g [...] patie nt/ legal decision maker Care Teams Pediatrician Relationship Specialty Start Date End Date Yari Craig PA-C [facility] [address] [place] [address] PCP - General 09/15/23 Vasile Reece, PhD LP [address] [place] [address] Neuropsychology 10/02/23 Amber Titus APRN CUTTER HEAD SHARPENER NEUROLOGY [facility] [address] [place] [address] Nurse Practitioner Psychiatry & Neurology Vascular Neurology 10/24/23 Keerthi Duff PA-C [address] [address] Physician Senior Information Developer Urology 09/02/24 Amber Titus APRN CUTTER HEAD SHARPENER NEUROLOGY [facility] [address] [place] [address] Assigned Surgical Provider 09/15/24
--- OUTSIDE RECORDS SUMMARY | 2024-11-28 12:58 | XMS_ITS | Continuity of Care Document ---
Author Name [facility] Address Unknown Organization Unknown Address Unknown Procedures FILTER APPLIED:Only known Procedures with Onset Date within the last 5 years Procedure Date Procedure Provider Additional Inform ation Status URINE CULTURE/COLONY COUNT (69934) Completed MICROBE SUSCEPTIBLE COLT (43485) Completed ASSAY OF BLOOD/URIC ACID (53518) Completed COMPREHEN METABOLIC PANEL (91611) Completed ASSAY THYROID STIM HORMONE (55449) Completed LIPID PANEL (16518) Comp leted ADMISSION MED REC MARKER FOR REPORTING AND BPA'S (15243) Completed COMPREHEN METABOLIC PANEL (18775) Completed ASSAY THYROID STIM HORMONE (84493) Completed Encounters FILTER APPLIED:Only known Encounters with Admission Date within the last 5 years Encounter Location Admission Discharge Billing Code Training And Development Manager Kamaljit troncoso [facility]patient [facility] Outpatient Yari Craig Outpatient Yari Craig Outpatient [facility]
--- OUTSIDE RECORDS SUMMARY | 2024-11-28 12:58 | XMS_ITS | Encounter Summary ---
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) [address] [address] Phone: tel: Referral ID Status Reason Start Date Expiration Date Visits Re quested Visits Authorized [id number] Closed 10/14/2024 11/23/2024 75 32 Encounter Details Date Type Department Care Team (Late st Contact Info) Description 10/15/2024 10:45 AM BUSINESS SERVICES COORDINATOR Therapy Visit [address] [address] Amber Titus APRN FAST FOOD SALES ASSISTANT [facility] 6 [place] [address] Malissa Clements SLP [facility] [address] [place] [address] Cerebrovascular accident (CVA) due to embolism of [...] TOTAL TIME: 90 min Reference: Jovan Linder, CCC-ANGLESMITH HELPER, (2000) [employer] NESS SERVICES COORDINATOR * Malissa Clements SLP - 10/15/2024 10:45 AM CST SPEECH LANGUAGE PATHOLOGY EVALUATION Fall Risk Screen: Fall screen completed by: ANGLESMITH HELPER Have you fallen 2 or more times [...] EP ABLATION PULMONARY VEIN ISOLATION EYE SURGERY GERIATRIC CARE MANAGER SURGERY HYSTERECTOMY IR CAROTID CEREBRAL ANGIOGRAM RIGHT 09/15/2023 SKIN / NAIL BIOPSY Right hand/removal of growth Prior diagnostic imaging/testing results: (Patient-Rptd) MRI; CT scan; X-ray Prior therapy history for the same diagnosis, illness or injury: (Patient-Rptd) Yes (Patient-Rptd) 09/15_~04/16 Yes, patient received ANGLESMITH HELPER services while an , ARU, [facility], and other care facilities, until her discharge [...] impaired, min/mild changes Short term memory: intact assistant terminal manager memory: intact Executive function: impaired mental flexibility, [...] potential is impacted by: comorbidities, family/caregiver support Longterm Goals: ANGLESMITH HELPER Goal 1 Goal Identifier: LTG 1: Education and compensatory strategies Goal Description: Patient and family will verbalize understanding of cognitive- linguistic compensatory strategies for attention and executive function skills for carry-over into the home. Rationale: To maximize safety and independence with cognitive function within the home or community Target Date: 11/14/24 ANGLESMITH HELPER Goal 2 Goal Identifier: LTG 2: HEP [...] Care. Evaluation Time: Signing Clinician: SYDNEE Baker NESS SERVICES COORDINATOR documented in this encounter Plan of Treatment Upcoming Encounters Date Type Department Care Team (Late st Contact Info) Description 12/23/2024 3:00 PM BUSINESS SERVICES COORDINATOR Office Visit [facility] Urology Clinic [address] [place] [address] Yari Craig PA-C [facility] [address] [place] [address] Keerthi Duff PA-C [address] [address] 02/18/2025 8:00 AM CDT Office Visit [facility] Neuropsychology [place] [address] [facility] 3rd [place] [phone] Vasile Reece, PhD [address] [phone] 02/28/2025 8:00 AM CDT Hospital Encounter [facility] Services [address] [place] [address] Yvon Ordonez MD [facility] [address] [place] [address] 02/28/2025 8:00 AM CDT - 02/28/2025 8:50 AM CDT Surgery [facility] Services [address] [place] [address] Yvon Ordonez MD [address] [address] Colonoscopy Scheduled Procedures Name Priority Associated Diagnoses [...] urgency documented in this encounter Care Teams Tree Planter Relationship Specialty Start Date End Date Yari Craig PA-C [address] [place] [address] PCP - General 09/15/23 Vasile Reece, PhD LP [address] [place] [address] Neuropsychology 10/02/23 Amber Titus APRN FAST FOOD SALES ASSISTANT [facility] 6 [place], [place] [address] Nurse Practitioner Psychiatry & Neurology Vascular Neurology 10/24/23 Keerthi Duff PA-C [address] [address] Physician Senior Chemical Process Engineer Urology 09/02/24 Amber Titus APRN FAST FOOD SALES ASSISTANT [facility] [address] [place] [address] Assigned Surgical Provider 09/15/24 documented as of this encounter
--- OUTSIDE RECORDS SUMMARY | 2024-11-28 12:58 | XMS_ITS | Clinical Summary ---
Author Organization [employer] Address [place], [place] [address] Care Team Providers Care Tufter Hand Name Role Phone RafaYari Cameron ZABALA Primary Care Provider Allergies Active Allergy Reactions Criticality Noted Date Comments Adhesive Rash Low 08/13/2014 Codeine Other - Describe In Comment Field Medium Sleep walks Medications multivitamins-c hpuhwf-ynou-wxb erals 18-0.4 mg tab tablet Daily Active potassium chloride (KLOR-CON 10; K-TAB) 10 mEq Controlled-Rele ase tablet Daily Active alendronate (FOSAMAX) 70 mg tablet 09/23/2021 Active Certolizumab Pegol (CIMZIA) 400 mg/2 mL (200 mg/mL x 2) sykt injection [id number] Activ e cholecalciferol (VITAMIN D3) 1,000 unit [...] Comments Blood Pressure 138/90 10/11/2021 3:07 PM ASSEMBLER MOVEMENT Pulse 82 10/30/2022 1:23 PM ASSEMBLER MOVEMENT Temperature - - Respiratory Rate - - Oxygen Saturation 99% 10/30/2022 1:23 PM ASSEMBLER MOVEMENT Inhaled Oxygen Concentration - - Weight 70.3 kg (155 lb) 10/30/2022 1:23 PM ASSEMBLER MOVEMENT Height - - Body Mass Index - [...] for age 65+ 07/25/2024 Insurance [id number] [place] [address] [place] Care Teams Tufter Hand Relationship Specialty Start Date End Date Yari Craig PA-C [address] [place] [address] PCP - General Physician Splitter Machine 09/26/22
--- OUTSIDE RECORDS SUMMARY | 2024-11-28 12:58 | XMS_ITS | Encounter Summary ---
Author Organization [place] Address [address] [place] [address] Care Team Providers Care Customer Solutions Architect Name Role Phone Yari Craig PA-C Primary Care Provider [phone] Vasile Reece PhD LP Unavailable [phone] Amber Titus APRN EXTERN Unavailable [phone] Keerthi Duff PA-C Unavailable [phone] Amber Titus APRN EXTERN Unavailable [phone] Encounter Details Date Type Department Care Team [...] st Contact Info) Description 12/23/2024 3:00 PM HARDWARE INSTALLATION COORDINATOR Office Visit [facility] Urology Clinic [place] [address] [facility] [address] [place] [phone] Yari Craig PA-C [facility] [address] [facility], [place] [phone] Keerthi Duff PA-C [address] [facility] [address] [place] [address] 02/18/2025 8:00 AM CDT Office Visit [facility] Neuropsychology [address] [phone] Vasile Reece, PhD [address] [address] 02/28/2025 8:00 AM CDT Hospital Encounter [facility] [address] [place] [address] Yvon Ordonez MD [address] [address] 02/28/2025 8:00 AM CDT - 02/28/2025 8:50 AM CDT Surgery [facility] [address] [place] [address] Yvon Ordonez MD [facility] [address] [place] [address] Colonoscopy Scheduled Procedures Name Priority Associated Diagnoses Date/Ti me COLONOSCOPY Crohn's disease without complication, unspecified gastrointestinal tract location (H) Incontinence of feces with fecal urgency H/O: stroke Rectal urgency 02/28/2025 8:00 AM CDT documented as of this encounter Visit Diagnoses Not on filedocumented in this encounter Care Teams Customer Solutions Architect Relationship Specialty Start Date End Date Yari Craig PA-C [facility] [address] [facility] [place] [address] PCP - General 09/15/23 Vasile Reece, PhD LP [address] [place] [address] MD Neuropsychology 10/02/23 Amber Titus APRN EXTERN [facility] [address] [place] [address] Nurse Practitioner Psychiatry & Neurology Vascular Neurology 10/24/23 Keerthi Duff PA-C [address] [address] Physician Pouncing Machine Operator Urology 09/02/24 Amber Titus APRN EXTERN [facility] [address] [place] [phone] Assigned Surgical Provider 09/15/24 documented as of this encounter
--- OUTSIDE RECORDS SUMMARY | 2024-11-28 12:58 | XMS_ITS | Encounter Summary ---
Author Organization [place] Address [address] [place] [address] Care Team Providers Care Industrial Relations Manager Name Role Phone Yari Craig PA-C Primary Care Provider Vasile Reece PhD LP Unavailable [phone] Amber Titus APRN OUTSIDE PARTS SALES Unavailable Keerthi Duff PA-C Unavailable Amber Titus APRN OUTSIDE PARTS SALES Unavailable Reason for Visit * Reason Comments Med Change Request Encounter Details Date Type Department Care Team (Late st Contact Info) Description 11/03/2024 [facility] Neurology Clinics [address], [address] [place] [address] Amber Titus APRN OUTSIDE PARTS SALES [facility] [address] [place] [address] Med Change Request Social History Tobacco Use [...] Janelle Nj RN - 11/05/2024 9:34 AM AQUATIC INSTRUCTOR Spoke with pt's daughter. She states the [...] Janelle MICHELLE, RN, SCRN RN Stroke Neurology Packaging Design Engineer [facility] Neuroscience Service Line TIC INSTRUCTOR * Telephone Encounter - Janelle Nj RN - 11/03/2024 10:46 AM AQUATIC INSTRUCTOR Images from the original note were not included. Stroke RN Care Coordination - Unable to Reach / Voicemail Note Stroke RN Packaging Design Engineer Outreach: Med Change Request Outreach attempted x 1. Left message on daughter's voicemail with call back information and requested return call. Stroke RN Packaging Design Engineer will try to reach daughter again in 1-2 business days. Janelle MICHELLE, RN, SCRN RN Stroke Neurology Packaging Design Engineer [facility] Neuroscience Service Line TIC INSTRUCTOR * Telephone Encounter - Amber Titus APRN CNP - 11/03/2024 10:32 AM AQUATIC INSTRUCTOR As this is a new medication can we call and check on how she is doing since starting it? If she is tolerating well I would be happy to send in a 90 day supply TIC INSTRUCTOR * Telephone Encounter - Janelle Nj RN - 11/03/2024 10:01 AM AQUATIC INSTRUCTOR Pt appears to reside at [facility]. Routing to Amber BLOCK, do you plan on supporting refills on this medication, or do you want us to request refills through PCP. Looks like PCP is either Yari Craig through the [facility] or maybe she has a new PCP team through [facility]. Janelle Nj BS, RN, SCRN RN Stroke Neurology Packaging Design Engineer [facility] Neuroscience Service Line TIC INSTRUCTOR documented in this encounter Plan of Treatment Upcoming Encounters Date Type Department Care Team (Late st Contact Info) Description 12/23/2024 3:00 PM AQUATIC INSTRUCTOR Office Visit [facility] Urology Clinic [address] [place] [phone] Yari Craig PA-C [facility] & [address] [place] [address] Keerthi Duff PA-C [address] 8[address] 02/18/2025 8:00 AM CDT Office Visit [facility] Neuropsychology [address] 3rd [place] [address] Vasile Reece, PhD [address] [address] 02/28/2025 8:00 AM CDT Hospital Encounter [facility] [address] [place] [address] Yvon Ordonez MD [address] [address] 02/28/2025 8:00 AM CDT - 02/28/2025 8:50 AM CDT [facility] [address] [place] [address] Yvon Ordonez MD [address] [address] Colonoscopy Scheduled Procedures Name Priority Associated Diagnoses [...] urgency documented in this encounter Care Teams Industrial Relations Manager Relationship Specialty Start Date End Date Yari Craig PA-C [facility] [address] [place] [address] PCP - General 09/15/23 Vasile Reece, PhD [address] [place] [address] Neuropsychology 10/02/23 Amber Titus APRN OUTSIDE PARTS SALES [facility] [address] [place] [address] Nurse Practitioner Psychiatry & Neurology Vascular Neurology 10/24/23 Keerthi Duff PA-C [address] [address] Physician Tax Revenue Officer Urology 09/02/24 Amber Titus APRN OUTSIDE PARTS SALES [facility] [address] [place] [address] Assigned Surgical Provider 09/15/24 documented as of this encounter
--- OUTSIDE RECORDS SUMMARY | 2024-11-28 12:58 | XMS_ITS | Encounter Summary ---
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) [address] [address] Phone: tel: Referral ID Status Reason Start Date Expiration Date Visits Re quested Visits Authorized [id number] Closed 10/14/2024 11/23/2024 75 32 Encounter Details Date Type Department Care Team (Late st Contact Info) Description 10/19/2024 9:30 AM ELECTROTYPE MOLDER Therapy Visit [address] [address] TachoAmber gomez APRN CNP [facility] [address] [place] [address] Shannon Luis, OTR PACHECO [address] [address] Cerebrovascular accident (CVA) due to embolism of [...] CNP on 10/11/24: ???She was hospitalized at [facility] on 09/15/23. Prior to the hospital stay, doloreshad a past medical history of f Afib on Xarelto, HTN, Crohn's disease, GERD, Migraine and former smoker. She presented to the hospital with right gaze deviation, left face/arm/leg weakness and dysarthria...CTA with right DAY HABILITATION SPECIALIST and right ICA occlusion; she was outside [...] Bath bench Employment: (Patient-Rptd) No Retired from [employer], cleric work with volunteers and supervising Hobbies/Interests: (Patient-Rptd) reading (belongs to a book club), painting, was playing some Mahjong at the [employer] in [place] but her special education bus driver to this activity recently Patient goals [...] Details: To further assess cognition, administered the [place] Cognitive Assessment (MoCA), which was designed as [...] bed but doesn't often adjust it. TRANSFERS: [facility], Independent - relies on hand hold BATHING: [facility], Independent Equipment: Grab bar, Hand-held shower head, Shower chair/Tub bench; walk-in shower UPPER BODY DRESSING: [facility], Independent Equipment: Dressing stick, Sleeper Cutter - doesn't often use LOWER BODY DRESSING: [facility], Independent Equipment: Sleeper Cutter, Sock-aid - doesn't often use TOILETING: [facility], Independent; notes she has urgency with using the bathroom due to Crohn's disease Equipment: Grab bar GROOMING: [facility], Independent Equipment: n/a EATING/SELF FEEDING: [facility], Independent Equipment: n/a; reports she [...] than 1x/day frequency. She does go for txegpy0q/week in one building and 2x/week in another [...] desired. Otherwise meals provided by family members. Home/Manager Administrative: Daughter assists with household cleaning and laundry. [...] to perform self care tasks, recreational activities, cable strander, driving , household mobility, community mobility, medication management, nonprofit financial controller, meal planning and preparation, and community or [...] Reintegration, Self-Care/Home Management, Therapeutic Activity, Therapeutic Exercise Halfway Goals OT Goal 1 Goal Identifier: Cognition/Safety [...] Care. Evaluation Time: OT Christian Ulrich Minutes (95672): 50 Signing Clinician: ARLETTE Contreras TROTYPE MOLDER documented in this encounter Plan of Treatment Upcoming Encounters Date Type Department Care Team (Late st Contact Info) Description 12/23/2024 3:00 PM ELECTROTYPE MOLDER Office Visit [facility] [place] [address] [facility] [address] [place] [address] Yari Craig PA-C [facility] [address] [place] [address] Keerthi Duff PA-C [address] [address] 02/18/2025 8:00 AM CDT Office Visit [facility] Neuropsychology [address] [place] [phone] Vasile Reece, PhD [address] [address] 02/28/2025 8:00 AM CDT Hospital Encounter [facility] PeriOp Services [address] [place] [address] Yvon Ordonez MD [address] [address] 02/28/2025 8:00 AM CDT - 02/28/2025 8:50 AM CDT Surgery [facility] [address] [place] [address] Yvon Ordonez MD [address] [address] Colonoscopy Scheduled Procedures Name Priority Associated Diagnoses [...] urgency documented in this encounter Care Teams Installation Supervisor Relationship Specialty Start Date End Date Yari Craig PA-C [facility] [address] [place] [address] PCP - General 09/15/23 Vasile Reece, PhD LP [address] [place] [phone] MD Neuropsychology 10/02/23 Amber Titus APRN JAVASCRIPT WEB DEVELOPER [facility] [address] [place] [address]69[address] Nurse Practitioner Psychiatry & Neurology Vascular Neurology 10/24/23 Keerthi Duff PA-C [address] [address] Physician Superintendent Renting Managing Urology 09/02/24 Amber Titus APRN JAVASCRIPT WEB DEVELOPER [facility] [address] [place] [address]645 Assigned Surgical Provider 09/15/24 documented as of this encounter
--- OUTSIDE RECORDS SUMMARY | 2024-11-28 12:58 | XMS_ITS | Encounter Summary ---
Author Organization [place] Address [address] [place] [address] Care Team Providers Care Coat Padder Name Role Phone Yari Craig PA-C Primary Care Provider Vasile Reece PhD LP Unavailable [phone] Amber Titus APRN BATCH ANALYST Unavailable [phone] Keerthi Duff PA-C Unavailable Amber Titus APRN BATCH ANALYST Unavailable [phone] Encounter Details Date Type Department Care Team (Late st Contact Info) Description 09/27/2024 MyC Medical Advice [facility] Urology Clinic [place] [address] [place] [phone] Carolyn Hernandez Social History Tobacco Use Types [...] st Contact Info) Description 12/23/2024 3:00 PM LIVING MANAGER Office Visit [facility] Urology Clinic [place] [address] [facility] [address] [place] [phone] Yari Craig PA-C [facility] [address] [place], [place] [phone] Keerthi Duff PA-C [address] [address] 02/18/2025 8:00 AM CDT Office Visit [facility] Neuropsychology [address] [phone] Vasile Reece, PhD [address] [address] 02/28/2025 8:00 AM CDT Hospital Encounter [facility] Services [address] [place] [address] Yvon Ordonez MD [address] [address] 02/28/2025 8:00 AM CDT - 02/28/2025 8:50 AM CDT Surgery [facility] [address] [place] [address] Yvon Ordonez MD [address] [address] Colonoscopy Scheduled Procedures Name Priority Associated Diagnoses Date/Ti me COLONOSCOPY Crohn's disease without complication, unspecified gastrointestinal tract location (H) Incontinence of feces with fecal urgency H/O: stroke Rectal urgency 02/28/2025 8:00 AM CDT documented as of this encounter Visit Diagnoses Not on filedocumented in this encounter Care Teams Coat Padder Relationship Specialty Start Date End Date Yari Craig PA-C [facility] [address] [place] [address] PCP - General 09/15/23 Vasile Reece, PhD LP [address] [place] [address] Neuropsychology 10/02/23 Amber Titus APRN BATCH ANALYST [facility] [address] [place] [address] 936905 Nurse Practitioner Psychiatry & Neurology Vascular Neurology 10/24/23 Keerthi Duff PA-C [address] [address]18[address] Physician Title Insurance Examiner Urology 09/02/24 Amber Titus APRN BATCH ANALYST [facility] [address] [place] [phone] Assigned Surgical Provider 09/15/24 documented as of this encounter
--- OUTSIDE RECORDS SUMMARY | 2024-11-28 12:58 | XMS_ITS | Encounter Summary ---
Author Organization [place] Address [address] [place] [address] Care Team Providers Care City Recorder Name Role Phone Yari Craig PA-C Primary Care Provider Vasile Reece PhD LP Unavailable [phone] Amber Titus APRN SENIOR INSTRUCTOR Unavailable [phone] Keerthi Duff PA-C Unavailable Amber Titus APRN SENIOR INSTRUCTOR Unavailable [phone] Encounter Details Date Type Department Care Team (Late st Contact Info) Description 10/12/2024 [facility] Medical Advice [facility] Neurology Clinics [address], [address] [place] [address] Janelle Nj, RN Social History Tobacco [...] st Contact Info) Description 12/23/2024 3:00 PM BILLING SUPERVISOR Office Visit [facility] [place] [address] [facility] [address] [place] [address] Yari Craig PAMarcelo [address] [place] [address] Keerthi Duff PA-C [address] [address] 02/18/2025 8:00 AM CDT Office Visit [facility] Neuropsychology [place] 471[address] [facility] 3rd [place] [phone] Vasile Reece, PhD [address] [address] 02/28/2025 8:00 AM CDT Hospital Encounter [facility] Peri Services [address] [place] [phone] Yvon Ordonez MD [facility] [address] [place] [address] 02/28/2025 8:00 AM CDT - 02/28/2025 8:[address] [facility] Services [address] [place] [phone] Yvon Ordonez MD [facility] [address] [place] [address] Colonoscopy Scheduled Procedures Name Priority Associated Diagnoses Date/Ti me COLONOSCOPY Crohn's disease without complication, unspecified gastrointestinal tract location (H) Incontinence of feces with fecal urgency H/O: stroke Rectal urgency 02/28/2025 8:00 AM CDT documented as of this encounter Visit Diagnoses Not on filedocumented in this encounter Care Teams City Recorder Relationship Specialty Start Date End Date Yari Craig PA-C [address] [place] [address] PCP - General 09/15/23 Vasile Reece, PhD LP [address] [place] [id number] MD Neuropsychology 10/02/23 Amber Titus APRN SENIOR INSTRUCTOR [facility] [address] [place] [address] Nurse Practitioner Psychiatry & Neurology Vascular Neurology 10/24/23 Keerthi Duff PA-C [address] [address] Physician Airborne Operations Superintendent Urology 09/02/24 Amber Titus APRN SENIOR INSTRUCTOR [facility] [address] [place] [address]755 Assigned Surgical Provider 09/15/24 documented as of this encounter
--- OUTSIDE RECORDS SUMMARY | 2024-11-28 12:58 | XMS_ITS | Clinical Summary ---
Author Organization [place] Address [address] [place] [address] Care Team Providers Care Fish Hatchery Specialist Name Role Phone Yari Craig PA-C Primary Care Provider Vasile Reece PhD LP Unavailable [phone] Amber Titus APRN BOX CAR LOADER Unavailable Keerthi Duff PA-C Unavailable Amber Titus APRN BOX CAR LOADER Unavailable [phone] Allergies Active Allergy Reactions Criticality Noted Date [...] Type Department Care Team Description 11/03/2024 Refill [facility] Neurology [address] [address] Amber Titus APRN BOX CAR LOADER Med Change Request 10/19/2024 9:30 AM ULTRASOUND APPLICATIONS SPECIALIST Therapy Visit [address] [address] Amber Titus APRN BOX CAR LOADER Shannon Luis OTR 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) 10/19/2024 Travel 10/15/2024 10:45 AM ULTRASOUND APPLICATIONS SPECIALIST Therapy Visit [address] [phone] Amber Titus APRN BOX CAR LOADER Malissa Clements, SYDNEE 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) 10/15/2024 Travel 10/12/2024 MyC Medical Advice [facility] Neurology [address] [address] Janelle Nj, RN 10/12/2024 Telephone [facility] [address] [address] Janelle Nj, RN Orders (Lab to Outside Facility) 10/11/2024 10:00 AM ULTRASOUND APPLICATIONS SPECIALIST Virtual Visit [address] [address] Amber Titus APRN BOX CAR LOADER 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) (Primary Dx); Cognitive and behavioral changes 10/08/2024 Telephone [facility] [place] [address] [facility], [address] [place] [address] Amber Titus APRN CNP 09/27/2024 MyC Medical Advice [facility] Urology Clinic [place] [address] [place] [...] 36.3 C (97.3 F) 11/18/2023 3:43 PM ULTRASOUND APPLICATIONS SPECIALIST Respiratory Rate 18 11/18/2023 3:43 PM ULTRASOUND APPLICATIONS SPECIALIST Oxygen Saturation 95% 03/16/2024 2:40 PM CDT Inhaled Oxygen Concentration - - Weight 81 kg (178 lb 9.6 oz) 12/10/2023 2:21 PM ULTRASOUND APPLICATIONS SPECIALIST Height 162.6 cm (5' 4) 11/18/2023 3:43 PM ULTRASOUND APPLICATIONS SPECIALIST Body Mass Index 30.66 11/18/2023 3:43 PM ULTRASOUND APPLICATIONS SPECIALIST Plan of Treatment Upcoming Encounters Date Type Department Care Team (Late st Contact Info) Description 12/23/2024 3:00 PM ULTRASOUND APPLICATIONS SPECIALIST Office Visit [facility] [place] [address] [facility] [address] [place] [phone] Yari Craig PA-C [facility] [address] [place], [place] [address] Keerthi Duff PA-C [address] [facility] [address] [place] [address] 02/18/2025 8:00 AM CDT Office Visit [facility] Neuropsychology [address] [phone] Vasile Reece, PhD [address] [address] 02/28/2025 8:00 AM CDT Hospital Encounter [facility] PeriOp Services [address] [place] [address] Yvon Ordonez MD [address] [address] 02/28/2025 8:00 AM CDT - 02/28/2025 8:50 AM CDT Surgery [facility] PeriOp Services [address] [place] [address] Yvon Ordonez MD [address] [address] Colonoscopy Scheduled Procedures Name Priority Associated Diagnoses [...] BASIC METABOLIC PANEL Routine 10/27/2023 7:56 AM ULTRASOUND APPLICATIONS SPECIALIST Heart failure, unspecified (H) Essential (primary) hypertension T4 FREE Routine 10/06/2023 6:08 AM ULTRASOUND APPLICATIONS SPECIALIST Hypothyroidism, unspecified Essential (primary) hypertension UA MACROSCOPIC WITH REFLEX TO MICRO AND CULTURE STAT 09/28/2023 6:38 PM ULTRASOUND APPLICATIONS SPECIALIST HEPATIC FUNCTION PANEL Timed 09/28/2023 1:51 PM ULTRASOUND APPLICATIONS SPECIALIST CBC WITH PLATELETS STAT 09/28/2023 11 :03 AM ULTRASOUND APPLICATIONS SPECIALIST LIPID PROFILE Add-On 09/15/2023 5:49 AM CDT from Last 3 Months or Most Recently Relevant to Health Maintenance Results * (ABNORMAL) Basic metabolic panel (10/27/2023 7:56 AM ULTRASOUND APPLICATIONS SPECIALIST) Sodium 139 135 - 145 mmol/L 10/27/2023 10:22 AM [facility] Comment:Reference intervals for this test were updated on 08/19/2023 to more accurately reflect our healthy population. There may be differences in the flagging of prior results with similar values performed with this method. Interpretation of those prior results can be made in the context of the updated reference intervals. Potassium 4.3 3.4 - 5.3 mmol/L 10/27/2023 10:22 AM [facility] Chloride 100 98 - 107 mmol/L 10/27/2023 10:22 AM [facility] Carbon Dioxide (CO2) 26 22 - 29 mmol/L 10/27/2023 10:22 AM [facility] Anion Gap 13 7 - 15 mmol/L 10/27/2023 10:22 AM [facility] Urea Nitrogen 35.6(H) 8.0 - 23.0 mg/dL 10/27/2023 10:22 AM [facility] Creatinine 1.44(H) 0.51 - 0.95 mg/dL 10/27/2023 10:22 AM [facility] LABORATORY GFR Estimate 36(L) >60 mL/min/1. 73m2 10/27/2023 10:22 AM [facility] Calcium 9.0 8.8 - 10.2 mg/dL 10/27/2023 10:22 AM [facility] Glucose 99 70 - 99 mg/dL 10/27/2023 10:22 AM [facility] Blood BLOOD SPECIMEN / Unknown Venipuncture / Unknown 10/27/2023 7:56 AM ULTRASOUND APPLICATIONS SPECIALIST 10/27/2023 9:51 AM ULTRASOUND APPLICATIONS SPECIALIST Yeimy Almazan APRN, CNP LAB - BLOOD ORDER CHARISMA Final Result [facility] [address] 1[address] floor, [address] [place] [address], [place] [phone] * T4 free (10/06/2023 6:08 AM ULTRASOUND APPLICATIONS SPECIALIST) Free T4 1.27 0.90 - 1.70 ng/dL 10/06/2023 11:37 AM ULTRASOUND APPLICATIONS SPECIALIST LABORATORY Blood STRUCTURE OF RIGHT HAND / Unknown Venipuncture / Unknown 10/06/2023 6:08 AM ULTRASOUND APPLICATIONS SPECIALIST 10/06/2023 9:52 AM ULTRASOUND APPLICATIONS SPECIALIST Yeimy Almazan APRN, CNP LAB - BLOOD ORDER CHARISMA Final Result [facility] [address] 1[address] floor, [address] [place] [address], [place] [phone] * UA Macroscopic with reflex to Microscopic and Culture (09/28/2023 6:38 PM ULTRASOUND APPLICATIONS SPECIALIST) Color Urine Yellow Colorless, Straw, Light Yellow, Yellow 09/28/2023 6:50 PM ULTRASOUND APPLICATIONS SPECIALIST [facility] Appearance Urine Clear Clear 09/28/20 6:50 PM ULTRASOUND APPLICATIONS SPECIALIST [facility] Glucose Urine Negative Negative mg/dL 09/28/2023 6:50 PM ULTRASOUND APPLICATIONS SPECIALIST [facility] Bilirubin Urine Negative Negative 6:50 PM ULTRASOUND APPLICATIONS SPECIALIST [facility] Ketones Urine Negative Negative mg/dL 09/28/2023 6:50 PM ULTRASOUND APPLICATIONS SPECIALIST [facility] Specific [place] Urine 1.012 1.003 - 1.035 09/28/2023 6:50 PM ULTRASOUND APPLICATIONS SPECIALIST [facility] Blood Urine Negative Negative 09/28/2023 6:50 PM ULTRASOUND APPLICATIONS SPECIALIST [facility] pH Urine 5.0 5.0 - 7.0 09/28/2023 6:50 PM ULTRASOUND APPLICATIONS SPECIALIST [facility] Protein Albumin Urine Negative Negative mg/dL 09/28/2023 6:50 PM ULTRASOUND APPLICATIONS SPECIALIST [facility] Urobilinogen Urine Normal Normal, 2.0 mg/dL 09/28/2023 6:50 PM ULTRASOUND APPLICATIONS SPECIALIST [facility] Nitrite Urine Negative Negative 09/28/2023 6:50 PM ULTRASOUND APPLICATIONS SPECIALIST [facility] Leukocyte Esterase Urine Negative Negative 09/28/2023 6:50 PM ULTRASOUND APPLICATIONS SPECIALIST [facility] Urine URINE SPECIMEN OBTAINED BY CLEAN CATCH PROCEDURE / Unknown Non-blood Collection / Unknown 09/28/2023 6:38 PM ULTRASOUND APPLICATIONS SPECIALIST 09/28/2023 6:45 PM ULTRASOUND APPLICATIONS SPECIALIST Narrative [facility] - 09/28/2023 6:50 PM ULTRASOUND APPLICATIONS SPECIALIST Microscopic not indicated us Kasey Covington MD LAB - URINE ORDERABLES Final Re sult UR [facility]ORATORY [facility] Lab [address] [facility], [address] [phone] * Hepatic panel (09/28/2023 1:51 PM ULTRASOUND APPLICATIONS SPECIALIST) Protein Total 7.0 6.4 - 8.3 g/dL 09/28/2023 3:58 PM ULTRASOUND APPLICATIONS SPECIALIST [facility] Albumin 4.0 3.5 - 5.2 g/dL 09/28/2023 3:58 PM ULTRASOUND APPLICATIONS SPECIALIST [facility] Bilirubin Total 0.4 <=1.2 mg/dL 09/28/2023 3:58 PM ULTRASOUND APPLICATIONS SPECIALIST [facility] Alkaline Phosphatase 94 35 - 104 U/L 09/28/2023 3:58 PM ULTRASOUND APPLICATIONS SPECIALIST [facility] AST 09/28/2023 3:58 PM ULTRASOUND APPLICATIONS SPECIALIST [facility] Comment: Unsatisfactory specimen - hemolyzed [...] 0 - 50 U/L 09/28/2023 3:58 PM ULTRASOUND APPLICATIONS SPECIALIST [facility] Comment:Reference intervals for this test were updated on 05/05/2023 to more accurately reflect our healthy population. There may be differences in the flagging of prior results with similar values performed with this method. Interpretation of those prior results can be made in the context of the updated reference intervals. Bilirubin Direct <0.20 0.00 - 0.30 mg/dL 09/28/2023 3:58 PM ULTRASOUND APPLICATIONS SPECIALIST [facility] Blood BLOOD SPECIMEN / Unknown Venipuncture / Unknown 09/28/2023 1:51 PM ULTRASOUND APPLICATIONS SPECIALIST 09/28/2023 2:25 PM ULTRASOUND APPLICATIONS SPECIALIST us Kasey Covington MD LAB - BLOOD ORDERABLES Final Re sult UR LABORATORY [facility] Lab [address] [facility], [address] [place] [address], [facility] [phone] * CBC with platelets (09/28/2023 11:03 AM ULTRASOUND APPLICATIONS SPECIALIST) WBC Count 8.7 4.0 - 11.0 10e3/uL 09/28/2023 11:10 AM ULTRASOUND APPLICATIONS SPECIALIST [facility] RBC Count 4.46 3.80 - 5.20 10e6/uL 09/28/2023 11:10 AM ULTRASOUND APPLICATIONS SPECIALIST [facility] Hemoglobin 14.7 11.7 - 15.7 g/dL 09/28/2023 11:10 AM ULTRASOUND APPLICATIONS SPECIALIST [facility] Hematocrit 43.7 35.0 - 47.0 % 09/28/2023 11:10 AM ULTRASOUND APPLICATIONS SPECIALIST [facility] MCV 98 78 - 100 fL 09/28/2023 11:10 AM ULTRASOUND APPLICATIONS SPECIALIST [facility] MCH 33.0 26.5 - 33.0 pg 09/28/2023 11:10 AM ULTRASOUND APPLICATIONS SPECIALIST [facility] MCHC 33.6 31.5 - 36.5 g/dL 09/28/2023 11:10 AM ULTRASOUND APPLICATIONS SPECIALIST [facility] RDW 13.2 10.0 - 15.0 % 09/28/2023 11:10 AM ULTRASOUND APPLICATIONS SPECIALIST [facility] Platelet Count 236 150 - 450 10e3/uL 09/28/2023 11:10 AM ULTRASOUND APPLICATIONS SPECIALIST [facility] Blood STRUCTURE OF RIGHT UPPER LIMB / Unknown Venipuncture / Unknown 09/28/2023 11:03 AM ULTRASOUND APPLICATIONS SPECIALIST 09/28/2023 11:07 AM ULTRASOUND APPLICATIONS SPECIALIST us Kasey Covington MD LAB - BLOOD ORDERABLES Final Re sult UR LABORATORY [facility] Lab [address] [facility], [address] [place] [address], [facility] [phone] * (ABNORMAL) Lipid Profile (09/15/2023 5:49 AM [...] or equal to 220 mg/dL us Cortes Salvaodr MD LAB - BLOOD ORDERABLES Final Result [facility] [address] [facility], [address] [place] [address], [facility] [phone] from Last 3 Months or Most Recently Relevant to Health Maintenance Insurance [facility] [employer] MEDICARE [facility] [employer] MEDICARE [employer] Advance Directives For more information, please contact: [phone] Documents on File Type Date Recorded Patient Infectious Disease Physician Expl anation Advance Directives and Livin g [...] patie nt/ legal decision maker Care Teams Fish Hatchery Specialist Relationship Specialty Start Date End Date Yari Craig PA-C [address] [place] [address] PCP - General 09/15/23 Vasile Reece, PhD LP [address] [place] [address] Neuropsychology 10/02/23 Amber Titus APRN BOX CAR LOADER NEUROLOGY [facility] [address] [place] [address] [phone] Nurse Practitioner Psychiatry & Neurology Vascular Neurology 10/24/23 Keerthi Duff PA-C [address] [place], [place] [phone] Physician Carbon Coater Machine Operator Urology 09/02/24 Amber Titus APRN BOX CAR LOADER NEUROLOGY [facility] [address] [place] [address] [phone] (work) Assigned Surgical Provider 09/15/24
--- OUTSIDE RECORDS SUMMARY | 2024-11-28 12:58 | XMS_ITS | Encounter Summary ---
Author Organization [place] Address [address] [place] [address] Care Team Providers Care Staffing Consultant Name Role Phone Yari Craig PA-C Primary Care Provider [phone] Vasile Reece PhD LP Unavailable [phone] Amber Titus APRN SPINDLE SANDER Unavailable [phone] Keerthi Duff PA-C Unavailable [phone] Amber Titus APRN SPINDLE SANDER Unavailable [phone] Encounter Details Date Type Department Care Team [...] st Contact Info) Description 12/23/2024 3:00 PM HAT BLOCK MAKER Office Visit [facility] Urology Clinic [place] [address] [facility] [address] [place] [phone] Yari Craig PA-C [facility] [address] [facility] [place], [place] [phone] Keerthi Duff PA-C [address] [email or web address] [address] [place] [address] 02/18/2025 8:00 AM CDT Office Visit [facility] Neuropsychology [address] [phone] Vasile Reece, PhD [address] [address] 02/28/2025 8:00 AM CDT Hospital Encounter [facility] PeriOp Services [address] [place] [address] Yvon Ordonez MD [address] [address] 02/28/2025 8:00 AM CDT - 02/28/2025 8:50 AM CDT Surgery [facility] PeriOp Services [address] [place] [address] Yvon Ordonez MD [facility] [address] [place] [address] Colonoscopy Scheduled Procedures Name Priority Associated Diagnoses Date/Ti me COLONOSCOPY Crohn's disease without complication, unspecified gastrointestinal tract location (H) Incontinence of feces with fecal urgency H/O: stroke Rectal urgency 02/28/2025 8:00 AM CDT documented as of this encounter Visit Diagnoses Not on filedocumented in this encounter Care Teams Staffing Consultant Relationship Specialty Start Date End Date Yari Craig PA-C [facility] [address] [facility] [place] [address] PCP - General 09/15/23 Vasile Reece, PhD LP [address] [place] [phone] MD Neuropsychology 10/02/23 Amber Titus APRN SPINDLE SANDER [facility] [address] [place] [address] [phone] Nurse Practitioner Psychiatry & Neurology Vascular Neurology 10/24/23 Keerthi Duff PA-C [address] [address] Physician Import Coordinator Urology 09/02/24 Amber Titus APRN SPINDLE SANDER [facility] [address] [place] [address] [phone] Assigned Surgical Provider 09/15/24 documented as of this encounter
--- OUTSIDE RECORDS SUMMARY | 2024-11-28 12:58 | XMS_ITS | Encounter Summary ---
Author Organization [place] Address [address] [place] [address] Care Team Providers Care River Guide Name Role Phone Yari Craig PA-C Primary Care Provider Vasile Reece PhD LP Unavailable Amber Titus APRN EVALUATOR TRANSFER STUDENTS Unavailable [phone] Amber Titus APRN EVALUATOR TRANSFER STUDENTS Unavailable Keerthi Duff PA-C Unavailable Amber Titus APRN EVALUATOR TRANSFER STUDENTS Unavailable Encounter Details Date Type Department Care Team (Late st Contact Info) Description 07/14/2024 [facility] Neuropsychology [address] [address] Vasile Reece, PhD [address] [address] Social History Tobacco Use Types [...] st Contact Info) Description 12/23/2024 3:00 PM OR MANAGER Office Visit [facility] [place] [address] [facility] [address] [place] [address] Yari Craig PA-C [facility] [address] [facility] [place], [place] [phone] Keerthi Duff PA-C [address] [facility] [address] [place] [address] 02/18/2025 8:00 AM CDT Office Visit [facility] Neuropsychology [address] [phone] Vasile Reece, PhD [address] [address] 02/28/2025 8:00 AM CDT Hospital Encounter [facility] PeriOp Services [address] [place] [address] Yvon Ordonez MD [address] [address] 02/28/2025 8:00 AM CDT - 02/28/2025 8:50 AM CDT Surgery [facility] PeriOp Services [address] [place] [address] Yvon Ordonez MD [facility] [place] [facility] [address] [place] [address] Colonoscopy Scheduled Procedures Name Priority Associated Diagnoses Date/Ti me COLONOSCOPY Crohn's disease without complication, unspecified gastrointestinal tract location (H) Incontinence of feces with fecal urgency H/O: stroke Rectal urgency 02/28/2025 8:00 AM CDT documented as of this encounter Visit Diagnoses Not on filedocumented in this encounter Care Teams River Guide Relationship Specialty Start Date End Date Yari Craig PA-C [facility] [address] [facility] [place] [address] PCP - General 09/15/23 Vasile Reece, PhD LP [address] [place] [phone] Neuropsychology 10/02/23 Amber Titus APRN EVALUATOR TRANSFER STUDENTS [facility] [address] [place] [address] [phone] Nurse Practitioner Psychiatry & Neurology Vascular Neurology 10/24/23 Amber Titus APRN EVALUATOR TRANSFER STUDENTS [facility] [address] [place] [address] Assigned Behavioral Health Provider 03/16/24 09/14/24 Keerthi Duff PA-C [address] [address] Physician Customer Retention Representative Urology 09/02/24 Amber Titus APRN EVALUATOR TRANSFER STUDENTS [facility] [address] [place] [address] [phone] (work) Assigned Surgical Provider 09/15/24 documented as of this encounter
--- OUTSIDE RECORDS SUMMARY | 2024-11-28 12:59 | XMS_ITS | Encounter Summary ---
Author Organization [facility] Address [address] [place] [address] Care Team Providers Care Litigation Assistant Name Role Phone Yari Craig PA-C Primary Care Provider [phone] Vasile Reece PhD LP Unavailable Amber Titus APRN DAILY SALES AUDIT CLERK Unavailable [phone] Amber Titus APRN DAILY SALES AUDIT CLERK Unavailable [phone] Keerthi Duff PA-C Unavailable Amber Titus APRN DAILY SALES AUDIT CLERK Unavailable Encounter Details Date Type Department Care Team (Late st Contact Info) Description 06/01/2024 [facility] Medical Advice [facility] Neurology Clinics [address], [address] [place] [address] Amber Titus APRN DAILY SALES AUDIT CLERK [facility] [address] [place] [id number] Social History Tobacco Use Types Packs/Day [...] st Contact Info) Description 12/23/2024 3:00 PM IMPERSONATOR CHARACTER Office Visit [facility] [place] [address] [facility] [address] [place] [phone] Yari Craig PA-C [facility] [address] [facility] [place] [address] Keerthi Duff PA-C [address] [address] 02/18/2025 8:00 AM CDT Office Visit [facility] Neuropsychology [address] [place] [phone] Vasile Reece, PhD [address] [address] 02/28/2025 8:00 AM CDT Hospital Encounter [facility] [address] [place] [phone] Yvon Ordonez MD [facility] [address] [place] [address] 02/28/2025 8:00 AM CDT - 02/28/2025 8:50 AM CDT Surgery [facility] [address] [place] [address] Yvon Ordonez MD [facility] [address] [place] [id number] Colonoscopy Scheduled Procedures Name Priority Associated Diagnoses Date/Ti me COLONOSCOPY Crohn's disease without complication, unspecified gastrointestinal tract location (H) Incontinence of feces with fecal urgency H/O: stroke Rectal urgency 02/28/2025 8:00 AM CDT documented as of this encounter Visit Diagnoses Not on filedocumented in this encounter Care Teams Litigation Assistant Relationship Specialty Start Date End Date Yari Craig PA-C [place] [phone] [facility] [place] [address] PCP - General 09/15/23 Vasile Reece, PhD LP [address] [place] [address] [id number] Neuropsychology 10/02/23 Amber Titus APRN DAILY SALES AUDIT CLERK [facility] [address] [place] [address] [id number] Nurse Practitioner Psychiatry & Neurology Vascular Neurology 10/24/23 Amber Titus APRN DAILY SALES AUDIT CLERK [facility] [address] [place] [address] [phone] Assigned Behavioral Health Provider 03/16/24 09/14/24 Keerthi Duff PA-C [address] [id number] Physician Managed Services Sales Consultant Urology 09/02/24 Amber Titus APRN DAILY SALES AUDIT CLERK [facility] [address] [place] [id number] Assigned Surgical Provider 09/15/24 documented as of this encounter
--- NOTE | 2024-11-28 13:05 | ED.SOB ---
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 The patient states she had a cough for over a year but her family states the patient have intermittent issues but but current cough seems have been going on since s Day. Patient has been fatigued for the past few days with this cough. Initially thought could have been some sort of UTI as she gets them every month and she was prescribed antibiotics. The culture did come back negative. Shows as a recent knee injection on 11/23/2024 for osteoarthritis. They have noticed the coughing has been getting worsen the patient mentioned to family that she is very short of breath and been having intermittent chest pressure. They state of the past few days are shows usually her hover around 96% but today was down into the mid 80s to mid 70s. The patient's daughter gave her an albuterol treatment at the patient occasionally has asthma like symptoms and the patient's daughter is an asthmatic so the patient use the daughter's albuterol. They thought there some improvement vision continued to feel short of breath especially with exertion. The patient walked then she denies feeling short of breath this time and did not feel short of breath walking to the room but her family thought she was breathing more heavily. Patient is currently having some midsternal chest pressure but is not radiating anywhere. She denies headache, lightheadedness, dizziness, abdominal pain, nausea, vomiting, weakness, numbness. They are not aware she had any sick contacts. Related Data Home Medications ?Medication ?Instructions ?Recorded ?Confirmed cholecalciferol (vitamin D3) 25 25 mcg PO DAILY 07/18/22 11/28/24 mcg (1,000 unit) capsule omeprazole 40 mg capsule,delayed 40 mg PO BID 07/02/23 11/28/24 release acetaminophen 500 mg capsule 1,000 mg PO .QD PRN 11/27/23 11/28/24 diclofenac sodium 1 % topical gel 2 g topical QID 11/27/23 11/28/24 multivitamin (Daily Multi-Vitamin 1 tab PO QAM 11/27/23 11/28/24 tablet) atorvastatin 40 mg tablet 40 mg PO DAILY 05/04/24 11/28/24 Lactobacillus rhamnosus GG 5 PO 07/14/24 11/23/24 billion cell oral powder packet ([employer]eth[employer] Probiotics) loperamide 2 mg capsule (Imodium 2 mg PO Q6H PRN 07/14/24 11/28/24 A-D) clonidine HCl 0.1 mg tablet 0.1 mg PO BID PRN 09/16/24 11/28/24 trazodone 50 mg tablet 50 mg PO QHS 09/16/24 11/28/24 donepezil 5 mg tablet (Aricept) 5 mg PO QDAY 10/11/24 11/28/24 Previous Rx's ?Medication ?Instructions ?Recorded certolizumab pegol 400 mg/2 mL See Rx Instructions .Route 11/26/22 (200 mg/mL x2) subcutaneous .COMPLEX #1 kit syringe kit (Cimzia) alendronate 70 mg tablet 70 mg PO .Every 7 Days 3 months 03/14/23 #12 tabs rivaroxaban 15 mg tablet (Xarelto) 15 mg PO DAILY #90 tabs 09/30/23 escitalopram oxalate 20 mg tablet 20 mg PO QDAY #90 tabs 11/27/23 metoprolol succinate 50 mg 50 mg PO BID #180 tabs 11/27/23 tablet,extended release 24 hr levothyroxine 75 mcg tablet 75 mcg PO DAILY #90 tabs 12/26/23 lisinopril 20 mg tablet 20 mg PO BID #180 tabs 04/08/24 cephalexin 250 mg capsule 250 mg PO DAILY #30 caps 11/19/24 sulfamethoxazole 800 1 tab PO BID #14 tabs 11/23/24 mg-trimethoprim 160 mg tablet (Bactrim DS) Allergies Allergy/AdvReac Type Severity Reaction Status Date / Time adhesive AdvReac Unknown Verified 11/28/24 12:26 codeine AdvReac Unknown Verified 11/28/24 12:26 Review of Systems Status of ROS: Reports: 10 or more systems reviewed and unremarkable except as noted in History and below [facility] Medical History Decreased range of motion of knee ?M25.669 - Stiffness of unspecified knee, not elsewhere classified (ICD-10) Acute pain of left knee ?M25.562 - Pain in left knee (ICD-10) History of squamous cell carcinoma ?Z85.89 - Personal history of malignant neoplasm of other organs and systems (ICD-10) Surgical History Status post patent foramen ovale closure (2009) ?Z87.74 - Personal history of (corrected) congenital malformations of heart and circulatory system (ICD-10) History of tonsillectomy and adenoidectomy ?Z90.89 - Acquired absence of other organs (ICD-10) History of hysterectomy ?Z90.710 - Acquired absence of both cervix and uterus (ICD-10) History of cholecystectomy ?Z90.49 - Acquired absence of other specified parts of digestive tract (ICD-10) History of appendectomy ?Z90.49 - Acquired absence of other specified parts of digestive tract (ICD-10) Social History Smoking Status: Never smoker Exam Narrative: Exam Narrative: Const: Well-nourished, Well-developed, in mild distress Eyes: PERRL, no conjunctival injection, and symmetrical lids HENT: Atraumatic external nose and ears. Moist mucous membranes. Neck: Symmetric, trachea midline, No thyromegaly. CVS: RRR, No murmurs or gallops. Peripheral pulses 2+ and equal in all extremities RESP: Unlabored respiratory effort. Extensive coughing so difficult to auscultate. GI: Nontender/Nondistended, No rebound or guarding. MSK:Extremities w/o deformity, Normal Active ROM Skin: Warm, Dry. No rashes or lesions. Neuro: Normal Muscle tone, No focal neurological deficits. Psych: Awake, Alert, & Oriented x3. Appropriate mood and affect. Const: Vital Signs, click to edit/add: Vital Signs - 24 hr 11/28/24 12:15 11/28/24 13:29 11/28/24 13:30 Temperature 96.5 F L Pulse Rate 83 84 Pulse Rate [Pulse Oximeter] 89 Respiratory Rate 18 Blood Pressure 171/98 H Blood Pressure [Ri ght Upper Arm] 167/101 H Pulse Oximetry 92 90 90 Oxygen Delivery Me thod Room Air Oxygen Flow Rate 11/28/24 13:39 11/28/24 13:45 11/28/24 14:00 Temperature Pulse Rate 88 81 75 Pulse Rate [Pulse Oximeter] Respiratory Rate Blood Pressure 171/76 H Blood Pressure [Ri ght Upper Arm] Pulse Oximetry 98 98 93 Oxygen Delivery Me thod Oxygen Flow Rate 11/28/24 14:02 11/28/24 14:15 11/28/24 14:30 Temperature Pulse Rate 93 82 83 Pulse Rate [Pulse Oximeter] Respiratory Rate Blood Pressure 121/75 Blood Pressure [Ri ght Upper Arm] Pulse Oximetry 95 92 94 Oxygen Delivery Me thod Oxygen Flow Rate 11/28/24 14:34 11/28/24 14:35 11/28/24 14:45 Temperature Pulse Rate 85 80 90 Pulse Rate [Pulse Oximeter] Respiratory Rate Blood Pressure 182/108 H Blood Pressure [Ri ght Upper Arm] Pulse Oximetry 92 93 89 Oxygen Delivery Me thod Oxygen Flow Rate 11/28/24 15:00 11/28/24 15:02 11/28/24 15:03 Temperature Pulse Rate 82 87 84 Pulse Rate [Pulse Oximeter] Respiratory Rate Blood Pressure 139/126 H Blood Pressure [Ri ght Upper Arm] Pulse Oximetry 91 91 92 Oxygen Delivery Me thod Oxygen Flow Rate 11/28/24 15:15 11/28/24 15:30 11/28/24 15:33 Temperature Pulse Rate 102 H 84 108 H Pulse Rate [Pulse Oximeter] Respiratory Rate Blood Pressure 182/118 H Blood Pressure [Ri ght Upper Arm] Pulse Oximetry 89 90 87 L Oxygen Delivery Me thod Oxygen Flow Rate 11/28/24 15:45 11/28/24 16:00 Temperature Pulse Rate 84 85 Pulse Rate [Pulse Oximeter] Respiratory Rate Blood Pressure Blood Pressure [Ri ght Upper Arm] Pulse Oximetry 96 94 Oxygen Delivery Me thod Nasal Cannula Nasal Cannula Oxygen Flow Rate 2 2 Course Vital Signs Vital signs: Initial Vital Signs Temperature 96.5 F L 11/28/24 12:15 Temperature Source Temporal Artery Scan 11/28/24 12:15 Pulse Rate 89 11/28/24 12:15 Respiratory Rate 18 11/28/24 12:15 Blood Pressure 167/101 H 11/28/24 12:15 Blood Pressure Mean 123 H 11/28/24 12:15 Blood Pressure Position Sitting 11/28/24 12:15 Pulse Oximetry 92 11/28/24 12:15 Oxygen Delivery Method Room Air 11/28/24 12:15 Vital Signs Temperature 96.5 F L 11/28/24 12:15 Pulse Rate 89 11/28/24 12:15 Respiratory Rate 18 11/28/24 12:15 Blood Pressure 167/101 H 11/28/24 12:15 Pulse Oximetry 92 11/28/24 12:15 Oxygen Delivery Method Room Air 11/28/24 12:15 Temperature 96.5 F L 11/28/24 12:15 Pulse Rate 85 11/28/24 16:00 Respiratory Rate 18 11/28/24 12:15 Blood Pressure 182/118 H 11/28/24 15:33 Pulse Oximetry 94 11/28/24 16:00 Oxygen Delivery Method Nasal Cannula 11/28/24 16:00 Oxygen Flow Rate 2 11/28/24 16:00 Medications Administered Medications: Discontinued Medications Generic Name Dose Route Start Last Admin Trade Name Cody PRN Reason Stop Dose Admin Albuterol 2.5 mg 11/28/24 13:05 11/28/24 13:35 Albuterol Sulfate 2.5 Mg/3 Ml Vial.Neb NEB 11/28/24 13:06 2.5 mg ONCE ONE Administration Azithromycin 500 mg 11/28/24 15:23 11/28/24 15:48 Azithromycin 250 Mg Tablet PO 11/28/24 15:24 500 mg ONCE ONE Administration Ceftriaxone Sodium 1 gm/ 100 mls @ 200 mls/hr 11/28/24 15:23 11/28/24 15:49 Sodium Chloride IVPB 11/28/24 15:24 200 mls/hr ONCE ONE Administration MDM - SOB/Dyspnea MDM Narrative Medical decision making narrative: Patient is an 83-year-old female presenting for shortness of breath. The differential diagnosis of shortness of breath is broad and includes common etiologies such as COPD, asthma, pneumonia, viral syndrome, etc. More serious etiologies considered include PE, CHF, coronary artery disease, pneumothorax, aortic dissection, aortic aneurysm. Water D-dimer which look for signs of PE. Will hold off on chest x-ray as a likely want to CT scan either way an contrast would depend on D-dimer results. Urinalysis ordered along with a CBC, BMP. COVID/flu/RSV test ordered. EKG and troponins look for signs of cardiac disease. She is RSV positive. CBC and BMP showed no concerning findings. Urinalysis shows no clear signs of UTI. Her troponin and EKG showed no concerning findings. Will do a chest CT without contrast. While waiting for the official radiologist CT read patient was satting about 86% on room air. She was also in the mid 70s with ambulation. She was placed on oxygen. This returned showing an area in the left upper lobe suggestive of underlying infectious versus inflammatory bronchiolitis. At this time will treat with Rocephin and azithromycin. Patient will be admitted to the hospitalist service and she agrees with this plan Lab Data Labs: Lab Results 11/28/24 11/28/24 11/28/24 Range/Units 12:45 13:15 14:27 WBC 6.14 (4.50-11.00) K/uL RBC 4.10 (4.00-5.20) m/uL Hgb 13.8 (12.0-16.0) gm/dL Hct 43.7 (33.0-51.0) % MCV 107 H (80-100) fL MCH 34 (26-34) pg MCHC 32 (32-36) gm/dL RDW Coeff of Caron 14.1 (11.5-15.5) % Plt Count 163 (140-440) K/uL Neut % (Auto) 74.2 H (42.0-72.0) % Lymph % (Auto) 15.0 L (20-44) % [place] % (Auto) 9.8 (0.0-11.0) % Eos % (Auto) 0.0 (0.0-7.0) % Baso % (Auto) 0.5 (0.0-3.0) % Neut # (Auto) 4.60 (1.7-7.0) K/uL Lymph # (Auto) 0.90 (0.90-2.90) K/uL [place] # (Auto) 0.60 (0.00-0.90) K/UL Eos # (Auto) 0.00 (0.00-0.50) K/uL Baso # (Auto) 0.03 (0.00-0.30) K/uL Abs Immat Gran (auto) 0.03 (0.00-0.30) K/uL Imm/Tot Granulo (auto) 0.5 % Diff Slide Review Acceptable Review (Acceptable) D-Dimer Quant (PE/DVT) < 0.27 (0.00-0.50) ug/ml Sodium 140 (135-149) mmol/L Potassium 4.3 (3.6-5.1) mmol/L Chloride 104 (96-114) mmol/L Carbon Dioxide 27 (20-32) mmol/L Anion Gap 9 (7-15) mEq/L BUN 28 (7-30) mg/dL Creatinine 1.4 (0.5-1.5) mg/dL Estimated Creat Clear 28.50 Estimated GFR 37 ml/min Glucose 147 H (60-115) mg/dL Calcium 9.3 (8.4-10.6) mg/dL Urine Color Yellow (Yellow) Urine Appearance Slightly Cloudy A (Clear) Urine pH 6.0 (5.0-8.5) Ur Specific [place] >= 1.030 (1.000-1.030) Urine Protein 3+ A (Negative) Urine Glucose (UA) Negative (Negative) Urine Ketones Trace A (Negative) Urine Blood Trace-intact A (Negative) Urine Nitrite Negative (Negative) Urine Bilirubin Negative (Negative) Urine Urobilinogen 0.2 (0.2-1.0) Ur Leukocyte Esterase Negative (Negative) Urine RBC 2-5 A (0-2) Urine WBC 2-5 (0-5) Ur Squamous Epith Cells Many A (None-Few) Urine Bacteria Moderate A (None) SARS-CoV-2 (PCR) (Negative) Influenza Type A (PCR) (Negative) Influenza Type B (PCR) (Negative) RSV (PCR) (Negative) POC Troponin I 0.03 (0.01-0.04) ng/ml 11/28/24 Range/Units Unknown WBC (4.50-11.00) K/uL RBC (4.00-5.20) m/uL Hgb (12.0-16.0) gm/dL Hct (33.0-51.0) % MCV (80-100) fL MCH (26-34) pg MCHC (32-36) gm/dL RDW Coeff of Caron (11.5-15.5) % Plt Count (140-440) K/uL Neut % (Auto) (42.0-72.0) % Lymph % (Auto) (20-44) % [place] % (Auto) (0.0-11.0) % Eos % (Auto) (0.0-7.0) % Baso % (Auto) (0.0-3.0) % Neut # (Auto) (1.7-7.0) K/uL Lymph # (Auto) (0.90-2.90) K/uL [place] # (Auto) (0.00-0.90) K/UL Eos # (Auto) (0.00-0.50) K/uL Baso # (Auto) (0.00-0.30) K/uL Abs Immat Gran (auto) (0.00-0.30) K/uL Imm/Tot Granulo (auto) % Diff Slide Review (Acceptable) D-Dimer Quant (PE/DVT) (0.00-0.50) ug/ml Sodium (135-149) mmol/L Potassium (3.6-5.1) mmol/L Chloride (96-114) mmol/L Carbon Dioxide (20-32) mmol/L Anion Gap (7-15) mEq/L BUN (7-30) mg/dL Creatinine (0.5-1.5) mg/dL Estimated Creat Clear Estimated GFR ml/min Glucose (60-115) mg/dL Calcium (8.4-10.6) mg/dL Urine Color (Yellow) Urine Appearance (Clear) Urine pH (5.0-8.5) Ur Specific [place] (1.000-1.030) Urine Protein (Negative) Urine Glucose (UA) (Negative) Urine Ketones (Negative) Urine Blood (Negative) Urine Nitrite (Negative) Urine Bilirubin (Negative) Urine Urobilinogen (0.2-1.0) Ur Leukocyte Esterase (Negative) Urine RBC (0-2) Urine WBC (0-5) Ur Squamous Epith Cells (None-Few) Urine Bacteria (None) SARS-CoV-2 (PCR) Negative SARS-CoV-2 (Negative) Influenza Type A (PCR) Negative PCR FLU A (Negative) Influenza Type B (PCR) Negative PCR FLU B (Negative) RSV (PCR) POSITIVE PCR RSV A (Negative) POC Troponin I (0.01-0.04) ng/ml Imaging Data CT scan - chest: Attestation: I have reviewed the pertinent imaging results. Radiologist's impression: Scattered tree-in-bud nodularity in the lingular segment of the left upper lobe, suggestive of underlying infectious versus inflammatory bronchiolitis. Please note that all CT scans at this facility use dose modulation, iterative reconstruction, and/or weight-based dosing when appropriate to reduce radiation dose to as low as reasonably achievable. Dictated by Jovani Patel MD @ 11/28/2024 3:07:56 PM ECG Data Attestation: I personally reviewed and interpreted this ECG as follows: Prior ECG tracings: available for review Interpretation: AFib with a rate of 87 beats per minute, normal intervals, normal axis, no ST or T-wave abnormalities. Appears similar to previous EKG on file Discharge Plan Discharge Clinical Impression: Hypoxia Respiratory syncytial virus (RSV) Qualifiers: RSV infection type: unspecified Qualified Code(s): B33.8 - Other specified viral diseases Patient Disposition: Admitted As Observation Condition: Stable Prescriptions: No Action cholecalciferol (vitamin D3) 25 mcg (1,000 unit) capsule 25 mcg PO DAILY alendronate 70 mg tablet 70 mg PO .Every 7 Days 90 Days Qty: 12 3RF atorvastatin 40 mg tablet 40 mg PO DAILY loperamide [Imodium A-D] 2 mg capsule 2 mg PO Q6H PRN [employer] Probiotics 5 billion cell powder in packet PO clonidine HCl 0.1 mg tablet 0.1 mg PO BID PRN trazodone 50 mg tablet 50 mg PO QHS acetaminophen 500 mg capsule 1,000 mg PO .QD PRN diclofenac sodium 1 % gel 2 g topical QID Rx Instructions: apply to single elbow, wrist or hand; for hand includes palm/fingers/back of hand multivitamin [Daily Multi-Vitamin] Tablet 1 tab PO QAM escitalopram oxalate 20 mg tablet 20 mg PO QDAY Qty: 90 3RF metoprolol succinate 50 mg tablet extended release 24 hr 50 mg PO BID Qty: 180 3RF Cimzia 400 mg/2 mL (200 mg/mL x 2) syringe kit See Rx Instructions .ROUTE .COMPLEX Qty: 1 2RF Dose Instruction: INJECT 1 SYRINGE UNDER THE SKIN EVERY 2 WEEKS Rx Instructions: INJECT 1 SYRINGE UNDER THE SKIN EVERY 2 WEEKS omeprazole 40 mg capsule,delayed release(DR/EC) 40 mg PO BID Xarelto 15 mg tablet 15 mg PO DAILY Qty: 90 3RF levothyroxine 75 mcg tablet 75 mcg PO DAILY Qty: 90 3RF lisinopril 20 mg tablet 20 mg PO BID Qty: 180 3RF donepezil [Aricept] 5 mg tablet 5 mg PO QDAY cephalexin 250 mg capsule 250 mg PO DAILY Qty: 30 1RF sulfamethoxazole-trimethoprim [Bactrim DS] 800-160 mg tablet 1 tab PO BID Qty: 14 0RF Follow Up/Referrals: Yari Craig, PAEbonyC [Primary Care Provider] -
[2024-11-28 13:16] LABS: PCR FLU A Negative PCR FLU A (Negative); PCR FLU B Negative PCR FLU B (Negative); PCR RSV POSITIVE PCR RSV (Negative); SARS PCR* Negative SARS-CoV-2 (Negative)
[2024-11-28 13:27] LABS: Basophils Absolute Auto 0.03 K/uL (0.00-0.30); Basophils Percent Auto 0.5 % (0.0-3.0); Hematocrit 43.7 % (33.0-51.0); Hemoglobin* 13.8 gm/dL (12.0-16.0); Immature Granulocytes Abs Auto 0.03 K/uL (0.00-0.30); Immature Granulocytes Pct Auto 0.5 %; Mean Corpuscular HGB Conc 32 gm/dL (32-36); Mean Corpuscular Hemoglobin 34 pg (26-34); Mean Corpuscular Volume 107 fL (80-100); Monocytes Percent Auto 9.8 % (0.0-11.0); Neutrophils Percent Auto 74.2 % (42.0-72.0); Platelet Count* 163 K/uL (140-440); RDW Coefficient of Variation % 14.1 % (11.5-15.5); White Blood Count* 6.14 K/uL (4.50-11.00)
[2024-11-28 13:30] LABS: Slide Review Reflex Yes
[2024-11-28 13:31] LABS: Slide Review Acceptable Review (Acceptable)
[2024-11-28] MEDS: ALBUTEROL SULFATE 2.5 MG/3 ML VIAL.NEB NEB ×2 (13:35→19:12)
[2024-11-28 13:39] LABS: Chloride* 104 mmol/L (96-114)
[2024-11-28 13:40] LABS: Potassium* 4.3 mmol/L (3.6-5.1); Sodium* 140 mmol/L (135-149)
[2024-11-28 13:40] LABS: Troponin, Point-of-Care* 0.03 ng/ml (0.01-0.04)
[2024-11-28 13:42] LABS: Creatinine* 1.4 mg/dL (0.5-1.5); Estimated Glomerular Filt Rate 37 ml/min
[2024-11-28 13:43] LABS: Anion Gap 9 mEq/L (7-15); Blood Urea Nitrogen* 28 mg/dL (7-30); Calcium* 9.3 mg/dL (8.4-10.6); Carbon Dioxide* 27 mmol/L (20-32); Glucose* 147 mg/dL (60-115)
[2024-11-28 14:03] LABS: D Dimer Quantitative* < 0.27 ug/ml (0.00-0.50)
--- NOTE | 2024-11-28 14:06 | CRLHL7_ITS ---
For Patients: As a result of the Century Cures Act, medical imaging exams and procedure reports are released immediately into your electronic medical record. You may view this report before your referring provider. If you have questions, please contact your health care provider. INDICATION: Cough, dyspnea. TECHNIQUE: Multiplanar CT examination of the chest was performed without the use of intravenous contrast. COMPARISON: None. FINDINGS: Lower neck: The visualized thyroid is unremarkable. Cardiovascular: Heart size is enlarged. Thoracic aorta and pulmonary artery are normal in caliber. Moderate atherosclerotic calcifications of the aortic arch. Coronary arterial calcifications. Mediastinum and lymph nodes: Unremarkable. No pathologic mediastinal or hilar lymphadenopathy by size criteria. Lungs: No focal consolidation. Tree-in-bud nodularity in the lingular segment of the left upper lobe. Mosaic attenuation pattern of opacification diffusely, nonspecific but can be seen with atypical infection, air trapping or edema. Linear bandlike opacification of the lung bases bilaterally, likely subsegmental atelectasis and/or scarring. Airways: The trachea remains patent and midline. Mild diffuse peribronchial wall thickening. Pleura: No pleural effusions or pneumothorax Chest wall: Unremarkable. Bones: No acute osseous abnormalities. Mild degenerative changes of the thoracic spine. Upper abdomen: No acute findings in the visualized upper abdomen. IMPRESSION: Scattered tree-in-bud nodularity in the lingular segment of the left upper lobe, suggestive of underlying infectious versus inflammatory bronchiolitis. Please note that all CT scans at this facility use dose modulation, iterative reconstruction, and/or weight-based dosing when appropriate to reduce radiation dose to as low as reasonably achievable. Dictated by Jovani Patel MD @ 11/28/2024 3:07:56 PM (Electronically Signed)
[2024-11-28 14:30] LABS: Appearance Urine Slightly Cloudy (Clear); Bilirubin Urine Negative (Negative); Blood Urine Trace-intact (Negative); Color Urine Yellow (Yellow); Glucose Urine Negative (Negative); Ketones Urine Trace (Negative); Leukocyte Esterase Urine Negative (Negative); Nitrite Urine Negative (Negative); Protein Urine 3+ (Negative); Specific Gravity Urine >= 1.030 (1.000-1.030); Urobilinogen Urine 0.2 (0.2-1.0)
[2024-11-28 14:42] LABS: Squamous Epithelial Cell Urine Many (None-Few)
[2024-11-28 14:43] LABS: Bacteria Urine Moderate
[2024-11-28] MEDS: AZITHROMYCIN 250 MG TABLET 500 MG PO (15:48)
[2024-11-28] MEDS: cefTRIAXone 1 GM in 0.9 % SODIUM CHLORIDE Mini-bag 100 ML IVPB (15:49)
[2024-11-28] MEDS: predniSONE 20 MG TABLET 40 MG PO (19:13)
--- NOTE | 2024-11-28 19:48 | PC.NURSE ---
Patient admitted to CCU1. Pleasant and cooperative. Afebrile. 1L NC to keep sats greater than 90%. Up with SBA, walker and gait belt. Tolerating regular diet with no nausea.
[2024-11-28] MEDS: lisinopriL 20 MG TABLET PO (20:26)
[2024-11-28] MEDS: METOPROLOL SUCCINATE (XL) 50 MG TAB PO (20:26)
[2024-11-28] MEDS: SODIUM CHLORIDE 0.9 % (FLUSH) 10 ML SYRINGE 5 ML IVF (20:26)
[2024-11-28] MEDS: OMEPRAZOLE 20 MG CAPSULE DR 40 MG PO (20:27)
[2024-11-28] MEDS: TRAZODONE HCL 50 MG TABLET PO (20:27)
[2024-11-28] MEDS: SULFA/TRIMETHOPRIM 800/160 1 TAB PO (20:27)
[2024-11-28] MEDS: RIVAROXABAN 10 MG TABLET 15 MG PO (20:36)
[2024-11-29] VITALS (11 sets, daily range): BP systolic 143–167; BP diastolic 76–122; PULSE 68–95; RESP 18–24; TEMP 36.1–36.8; O2SAT 82–95
--- NOTE | 2024-11-29 02:13 | P.IMHP_ITS ---
Hospitalist- H&P: HPI History of Present Illness Time Seen by Provider: 17:40 Date Seen: 11/28/24 Chief complaint: o2 sats 75-80%, weakness Narrative: Katelyn Wyatt is a 83 year old female with mild cognitive impairment, stroke this past August, and recurrent urinary tract infections whose daughter is a PA in [place] and was brought in by her daughter for concerns of hypoxia. Chew and started coughing on new year's Day and then developed fatigue. Jing in his daughter has been checking her her oxygen levels with a finger pulse ox device and noted that they are usually in the high 90% range, but today were in the 70% range even at rest. Desiree Ruiz was also quite wheezy today. Her daughter tells me that Desiree Ruiz frequently gets a tight cough for several weeks after each URI. Katelyn's daughter has asthma, so she gave her mom 1 of her of albuterol nebulizer treatments with some mild improvement in the wheezing. Due to the low oxygen saturations her daughter brought her into the ER. Dave hauser complains of fatigue. She is not aware of any sick contacts. She denies fevers, chills, chest pain, or lower extremity edema. Her daughter tells me that they tried to get Desiree Ruiz an RSV vaccination on several occasions this year, but because of supply and and different illness, Katelyn was unable to get vaccinated yet. Review of Systems Status of ROS: Reports: 10 or more systems reviewed and unremarkable except as noted in History and below [facility] Medical History (Updated 11/29/24 @ 02:34 by Kaylynn Colon MD) Hyperlipidemia ?E78.5 - Hyperlipidemia, unspecified (ICD-10) Gout ?M10.9 - Gout, unspecified (ICD-10) Gastroesophageal reflux disease ?K21.9 - Gastro-esophageal reflux disease without esophagitis (ICD-10) Crohn's disease ?K50.90 - Crohn's disease, unspecified, without complications (ICD-10) Chronic atrial fibrillation ?I48.20 - Chronic atrial fibrillation, unspecified (ICD-10) Hypothyroidism ?E03.9 - Hypothyroidism, unspecified (ICD-10) Migraine headache ?G43.909 - Migraine, unspecified, not intractable, without status migrainosus (ICD-10) Osteoporosis ?M81.0 - Age-related osteoporosis without current pathological fracture (ICD- 10) Rheumatoid arthritis ?M06.9 - Rheumatoid arthritis, unspecified (ICD-10) Primary hypertension ?I10 - Essential (primary) hypertension (ICD-10) Stage 3 chronic kidney disease ?N18.30 - Chronic kidney disease, stage 3 unspecified (ICD-10) OAB (overactive bladder) ?N32.81 - Overactive bladder (ICD-10) Osteoarthritis of left knee ?M17.12 - Unilateral primary osteoarthritis, left knee (ICD-10) Lateral meniscal tear ?S83.289A - Other tear of lateral meniscus, current injury, unspecified knee, initial encounter (ICD-10) Major depression ?F32.9 - Major depressive disorder, single episode, unspecified (ICD-10) Memory impairment ?R41.3 - Other amnesia (ICD-10) CVA (cerebral vascular accident) ?I63.9 - Cerebral infarction, unspecified (ICD-10) Insomnia ?G47.00 - Insomnia, unspecified (ICD-10) Swelling of lower extremity ?M79.89 - Other specified soft tissue disorders (ICD-10) Osteoarthritis of right knee ?M17.11 - Unilateral primary osteoarthritis, right knee (ICD-10) Recurrent UTI ?N39.0 - Urinary tract infection, site not specified (ICD-10) Pseudomonas urinary tract infection ?N39.0 - Urinary tract infection, site not specified (ICD-10) ?B96.5 - Pseudomonas (aeruginosa) (mallei) (pseudomallei) as the cause of diseases classified elsewhere (ICD-10) Decreased range of motion of knee ?M25.669 - Stiffness of unspecified knee, not elsewhere classified (ICD-10) Acute pain of left knee ?M25.562 - Pain in left knee (ICD-10) History of squamous cell carcinoma ?Z85.89 - Personal history of malignant neoplasm of other organs and systems (ICD-10) Surgical History Status post patent foramen ovale closure (2009) ?Z87.74 - Personal history of (corrected) congenital malformations of heart and circulatory system (ICD-10) History of tonsillectomy and adenoidectomy ?Z90.89 - Acquired absence of other organs (ICD-10) History of hysterectomy ?Z90.710 - Acquired absence of both cervix and uterus (ICD-10) History of cholecystectomy ?Z90.49 - Acquired absence of other specified parts of digestive tract (ICD- 10) History of appendectomy ?Z90.49 - Acquired absence of other specified parts of digestive tract (ICD- 10) Social History (Updated 11/29/24 @ 02:25 by Kaylynn Colon MD) Narrative: Lives independently. Daughter sets up meds. Denies tobacco, recreational drugs use. EtOH a few times a year. Dtr confirmed DNR/DNI. What is your current living situation?: I presently have a place to live Problems where you live: no known problems Problems where you live details: N/A In the past 12 months, utilities in danger of being shut off: no In past 12 months, lack of transportation kept you from medical appts, meetings, work, or getting things needed for daily living: no In the past 12 mos, have been you worried that your food would run out before you had money to buy more?: never true In the past 12 mos, the food you bought just didn't last and you didn't have mo josiane to buy more?: never true Highest level of school completed/degree received: some college, no degree Smoking Status: Former smoker How often do you have a drink containing alcohol: monthly or less AUDIT-C Alcohol total score: 1 Non-prescribed substance use: denies use Caffeine: Yes How often does anyone, including family, friends and others, physically hurt you : never How often does anyone, including family, friends and others, insult or talk down to you: never How often does anyone, including family, friends and others, threaten you with harm: never How often does anyone, including family, friends and others, scream or curse at you: never service: No Meds Home Medications and Allergies Home Medications ?Medication ?Instructions ?Recorded ?Confirmed ?Type cholecalciferol (vitamin D3) 25 25 mcg PO DAILY 07/18/22 11/28/24 History mcg (1,000 unit) capsule omeprazole 40 mg capsule,delayed 40 mg PO BID 07/02/23 11/28/24 History release acetaminophen 500 mg capsule 1,000 mg PO .QD PRN 11/27/23 11/28/24 History diclofenac sodium 1 % topical gel 2 g topical QID 11/27/23 11/28/24 History multivitamin (Daily Multi-Vitamin 1 tab PO QAM 11/27/23 11/28/24 History tablet) atorvastatin 40 mg tablet 40 mg PO DAILY 05/04/24 11/28/24 History Lactobacillus rhamnosus GG 5 PO 07/14/24 11/23/24 History billion cell oral powder packet (LaurieM/A-COMnii Probiotics) loperamide 2 mg capsule (Imodium 2 mg PO Q6H PRN 07/14/24 11/28/24 History A-D) clonidine HCl 0.1 mg tablet 0.1 mg PO BID PRN 09/16/24 11/28/24 History trazodone 50 mg tablet 50 mg PO QHS 09/16/24 11/28/24 History donepezil 5 mg tablet (Aricept) 5 mg PO QDAY 10/11/24 11/28/24 History Allergies Allergy/AdvReac Type Severity Reaction Status Date / Time adhesive AdvReac Unknown Verified 11/28/24 12:26 codeine AdvReac Unknown Verified 11/28/24 12:26 Exam Narrative: Exam Narrative: General: No acute distress. Awake alert oriented x3. Dry nonproductive cough. HEENT: Normocephalic atraumatic, pupils equally round and reactive to light and accommodation. Oropharynx clear. Mucous membranes are moist. No cervical lymphadenopathy, thyromegaly or carotid bruits. No JVD. Cardiovascular: Regular rate and rhythm. No murmurs, gallops, or rubs. Chest: No increased work of breathing. Expiratory wheezes throughout. Abdomen: Bowel sounds present. Soft, nondistended, nontender. No hepatosplenomegaly or masses. Extremities: No edema, no cyanosis or clubbing. Skin: No jaundice, no pallor, no rashes. Const: Vital Signs, click to edit/add: Vital Signs - 24 hr 11/28/24 12:15 11/28/24 13:29 11/28/24 13:30 Temperature 96.5 F L Pulse Rate 83 84 Pulse Rate [Left P ulse Oximeter] Pulse Rate [Pulse Oximeter] 89 Respiratory Rate 18 Blood Pressure 171/98 H Blood Pressure [Ri ght Arm] Blood Pressure [Ri ght Upper Arm] 167/101 H Pulse Oximetry 92 90 90 Oxygen Delivery Me thod Room Air Oxygen Flow Rate 11/28/24 13:39 11/28/24 13:45 11/28/24 14:00 Temperature Pulse Rate 88 81 75 Pulse Rate [Left P ulse Oximeter] Pulse Rate [Pulse Oximeter] Respiratory Rate Blood Pressure 171/76 H Blood Pressure [Ri ght Arm] Blood Pressure [Ri ght Upper Arm] Pulse Oximetry 98 98 93 Oxygen Delivery Me thod Oxygen Flow Rate 11/28/24 14:02 11/28/24 14:15 11/28/24 14:30 Temperature Pulse Rate 93 82 83 Pulse Rate [Left P ulse Oximeter] Pulse Rate [Pulse Oximeter] Respiratory Rate Blood Pressure 121/75 Blood Pressure [Ri ght Arm] Blood Pressure [Ri ght Upper Arm] Pulse Oximetry 95 92 94 Oxygen Delivery Me thod Oxygen Flow Rate 11/28/24 14:34 11/28/24 14:35 11/28/24 14:45 Temperature Pulse Rate 85 80 90 Pulse Rate [Left P ulse Oximeter] Pulse Rate [Pulse Oximeter] Respiratory Rate Blood Pressure 182/108 H Blood Pressure [Ri ght Arm] Blood Pressure [Ri ght Upper Arm] Pulse Oximetry 92 93 89 Oxygen Delivery Me thod Oxygen Flow Rate 11/28/24 15:00 11/28/24 15:02 11/28/24 15:03 Temperature Pulse Rate 82 87 84 Pulse Rate [Left P ulse Oximeter] Pulse Rate [Pulse Oximeter] Respiratory Rate Blood Pressure 139/126 H Blood Pressure [Ri ght Arm] Blood Pressure [Ri ght Upper Arm] Pulse Oximetry 91 91 92 Oxygen Delivery Me thod Oxygen Flow Rate 11/28/24 15:15 11/28/24 15:30 11/28/24 15:33 Temperature Pulse Rate 102 H 84 108 H Pulse Rate [Left P ulse Oximeter] Pulse Rate [Pulse Oximeter] Respiratory Rate Blood Pressure 182/118 H Blood Pressure [Ri ght Arm] Blood Pressure [Ri ght Upper Arm] Pulse Oximetry 89 90 87 L Oxygen Delivery Me thod Oxygen Flow Rate 11/28/24 15:45 11/28/24 16:00 11/28/24 16:00 Temperature Pulse Rate 84 85 Pulse Rate [Left P ulse Oximeter] Pulse Rate [Pulse Oximeter] Respiratory Rate Blood Pressure Blood Pressure [Ri ght Arm] Blood Pressure [Ri ght Upper Arm] Pulse Oximetry 96 94 Oxygen Delivery Me thod Nasal Cannula Nasal Cannula Nasal Cannula Oxygen Flow Rate 2 2 2 11/28/24 16:02 11/28/24 16:15 11/28/24 16:28 Temperature Pulse Rate 86 82 84 Pulse Rate [Left P ulse Oximeter] Pulse Rate [Pulse Oximeter] Respiratory Rate Blood Pressure 201/116 H 168/94 H Blood Pressure [Ri ght Arm] Blood Pressure [Ri ght Upper Arm] Pulse Oximetry 97 97 93 Oxygen Delivery Me thod Nasal Cannula Nasal Cannula Nasal Cannula Oxygen Flow Rate 2 2 2 11/28/24 16:30 11/28/24 16:32 11/28/24 17:47 Temperature 96.8 F L Pulse Rate 84 88 Pulse Rate [Left P ulse Oximeter] 81 Pulse Rate [Pulse Oximeter] Respiratory Rate 22 Blood Pressure 185/120 H Blood Pressure [Ri ght Arm] 185/104 H Blood Pressure [Ri ght Upper Arm] Pulse Oximetry 94 93 94 Oxygen Delivery Me thod Nasal Cannula Nasal Cannula Nasal Cannula Oxygen Flow Rate 2 2 1 11/28/24 17:47 11/28/24 19:35 11/28/24 23:00 Temperature 96.7 F L Pulse Rate Pulse Rate [Left P ulse Oximeter] 99 68 Pulse Rate [Pulse Oximeter] Respiratory Rate 22 20 20 Blood Pressure Blood Pressure [Ri ght Arm] 139/82 Blood Pressure [Ri ght Upper Arm] Pulse Oximetry 98 Oxygen Delivery Me thod Nasal Cannula Oxygen Flow Rate 1 11/29/24 00:50 11/29/24 00:58 Temperature 98.0 F Pulse Rate Pulse Rate [Left P ulse Oximeter] 68 Pulse Rate [Pulse Oximeter] Respiratory Rate 20 20 Blood Pressure Blood Pressure [Ri ght Arm] 139/82 Blood Pressure [Ri ght Upper Arm] Pulse Oximetry 90 90 Oxygen Delivery Me thod Nasal Cannula Nasal Cannula Oxygen Flow Rate 1 1 Hospitalist - H&P: Result Labs Labs: Short CBC 11/28/24 Range/Units 13:15 WBC 6.14 (4.50-11.00) K/uL Hgb 13.8 (12.0-16.0) gm/dL Hct 43.7 (33.0-51.0) % Plt Count 163 (140-440) K/uL BMP 11/28/24 13:15 Sodium 140 Potassium 4.3 Chloride 104 Carbon Dioxide 27 BUN 28 Creatinine 1.4 Glucose 147 H Calcium 9.3 Urine 11/28/24 Range/Units 14:27 Urine Color Yellow (Yellow) Urine Appearance Slightly Cloudy A (Clear) Urine pH 6.0 (5.0-8.5) Ur Specific [place] >= 1.030 (1.000-1.030) Urine Protein 3+ A (Negative) Urine Glucose (UA) Negative (Negative) Ordering Physician: Ramón Quintana D.O. Date of Service: 11/28/24 Procedure(s): CT chest wo con Accession Number(s): [id number] cc: Ramón Quintana D.O.; Yari ZABALA~ For Patients: As a result of the Cures Act, medical imaging exams and procedure reports are released immediately into your electronic medical record. You may view this report before your referring provider. If you have questions, please contact your health care provider. INDICATION: Cough, dyspnea. TECHNIQUE: Multiplanar CT examination of the chest was performed without the use of intravenous contrast. COMPARISON: None. FINDINGS: Lower neck: The visualized thyroid is unremarkable. Cardiovascular: Heart size is enlarged. Thoracic aorta and pulmonary artery are normal in caliber. Moderate atherosclerotic calcifications of the aortic arch. Coronary arterial calcifications. Mediastinum and lymph nodes: Unremarkable. No pathologic mediastinal or hilar lymphadenopathy by size criteria. Lungs: No focal consolidation. Tree-in-bud nodularity in the lingular segment of the left upper lobe. Mosaic attenuation pattern of opacification diffusely, nonspecific but can be seen with atypical infection, air trapping or edema. Linear bandlike opacification of the lung bases bilaterally, likely subsegmental atelectasis and/or scarring. Airways: The trachea remains patent and midline. Mild diffuse peribronchial wall thickening. Pleura: No pleural effusions or pneumothorax Chest wall: Unremarkable. Bones: No acute osseous abnormalities. Mild degenerative changes of the thoracic spine. Upper abdomen: No acute findings in the visualized upper abdomen. IMPRESSION: Scattered tree-in-bud nodularity in the lingular segment of the left upper lobe, suggestive of underlying infectious versus inflammatory bronchiolitis. Please note that all CT scans at this facility use dose modulation, iterative reconstruction, and/or weight-based dosing when appropriate to reduce radiation dose to as low as reasonably achievable. Dictated by Jovani Patel MD @ 11/28/2024 3:07:56 PM (Electronically Signed) Assessment and Plan Assessment and plan (1) Acute hypoxic respiratory failure: Problem comment: - Suspect due to RSV and probable reactive airway/undiagnosed asthma. Patient's daughter has asthma and Katelyn has h/o tight cough after URIs. - supplemental oxygen to keep sats above 90% - Albuterol nebs prn and start a short course of prednisone Status: Acute (2) Respiratory syncytial virus (RSV): Problem comment: - as above and supportive cares Status: Acute (3) Stage 3 chronic kidney disease: Problem comment: - secondary to hyperparathyroidism. - baseline 1.1-1.2, creatine mildly elevated at 1.4 today. Recheck in am Status: Chronic (4) Rheumatoid arthritis: Problem comment: Dxed age 30, followed by Dr. Sherley Forde ([facility]) Status: Chronic (5) Primary hypertension: Problem comment: - will order clonidine prn as taken at home Status: Chronic (6) Chronic atrial fibrillation: Problem comment: Follows cardiology - continue Xarelto and metoprolol Status: Chronic (7) Crohn's disease: Problem comment: Per Dr. Ellison, GI at [facility] from outside records, colonoscopy last done February 2018 and due again 3 years for surveillance, saw Dr. Marie ([facility]) 10/11/2021 - is on certolizumab Status: Chronic (8) Hyperlipidemia: Problem comment: - continue atorvastatin Status: Chronic
[2024-11-29] MEDS: cloNIDine HCL 0.1 MG TABLET PO (04:41)
[2024-11-29] MEDS: LEVOTHYROXINE 75 MCG TABLET PO (06:17)
--- NOTE | 2024-11-29 06:28 | PC.NURSE ---
End of shift note [id number]: Pt noted to be alert & oriented x 4. Pt transferring and ambulating with SBA using rolling walker. Pt noted to be mostly incontinent of bladder. IV to L AC patent and SL. Pt on oxygen at 1 LPM throughout the shift to maintain O2 sat greater than 90%. Pt afebrile throughout the shift. No N/V and pt is tolerating regular diet. IS education provided with return demonstration provided. PRN Clonidine administered for HTN noted. Bed alarm on, call light within reach.
--- NOTE | 2024-11-29 08:20 | PM.IMPN1 ---
Progress Note: A&P Assessment and plan (1) Acute hypoxic respiratory failure: Problem details: - Suspect due to RSV and probable reactive airway/undiagnosed asthma. - supplemental oxygen to keep sats above 90% - Albuterol nebs prn and start a short course of prednisone -vibratory peep and ISP -appreciate RT collaborating Status: Acute (2) Respiratory syncytial virus (RSV): Problem details: - as above and supportive cares -adding mucinex Status: Acute (3) Stage 3 chronic kidney disease: Problem details: - secondary to hyperparathyroidism. - baseline 1.1-1.2, creatine mildly elevated at 1.4 today. Recheck in am Status: Chronic (4) Rheumatoid arthritis: Problem details: Dxed age 30, followed by Dr. Sherley Forde ([facility]) Status: Chronic (5) Primary hypertension: Problem details: - will order clonidine prn as taken at home Status: Chronic (6) Hypothyroidism: Problem details: tsh pending Status: Chronic (7) Hyperlipidemia: Problem details: - continue atorvastatin Status: Chronic (8) Crohn's disease: Problem details: Per Dr. Ellison GI at [facility] from outside records, colonoscopy last done February 2018 and due again 3 years for surveillance, saw Dr. Marie ([facility] gastroenterology) 10/11/2021 - is on certolizumab Status: Chronic (9) Chronic atrial fibrillation: Problem details: Follows cardiology - continue Xarelto and metoprolol Status: Chronic Subjective Date Seen: 11/29/24 Interval history: Daily Progress Note - Hospital Medicine #: 2 CC: RSV bronchitis, hypoxic respiratory failure 24 HOUR UPDATE: Stable night. Patient has been hypertensive. She has been maintained on 1 to 1.5 L per nasal cannula oxygen. Sitting in bed her sats can be low 90s. However when she ambulates to the bathroom she drops into the low 80s. There is almost a continuous wet cough. She is bringing up clear sputum. She has known RSV positive. RN note:ACP first 30 mins [id number] I went over options for care during this current hospitalization and explained the difference between palliative care and hospice care. I described the likelihood of returning to previous functioning and what the options are going forward for care. End of shift note [id number]: Pt noted to be alert & oriented x 4. Pt transferring and ambulating with SBA using rolling walker. Pt noted to be mostly incontinent of bladder. IV to L AC patent and SL. Pt on oxygen at 1 LPM throughout the shift to maintain O2 sat greater than 90%. Pt afebrile throughout the shift. No N/V and pt is tolerating regular diet. IS education provided with return demonstration provided. PRN Clonidine administered for HTN noted. Bed alarm on, call light within reach. Notable Labs, Micro, Rads, Interventions: Afebrile overnight. Blood pressure currently 164/89. Pulse rate 78-91. Pulse ox 95% on 1 L. drops to 82 84% after walking to the bathroom off of oxygen. Morning labs were not drawn. I have those pending. I personally reviewed the admission chest CT. Scattered tree-in-bud nodularity in the lingular segment of the left upper lobe, suggestive of underlying infectious versus inflammatory bronchiolitis. Urine culture is negative for pathogen. There has been no blood culture drawn. Antibiotics have not been continued since initial dosing in the ED. she recently had Bactrim prescribed by her PCP and this was also held. Objective: Coughing continuously. However in good spirits. She is making jokes at her son-in-law. Her daughter and son-in-law are bedside. Her daughter is 1 of our PAs in urgent care. Vitals: Reviewed, hypoxia seems to be slightly improved. see above Lungs: Scattered wheezes, upper airway congestion, Cardiac: S1S2. Disposition/Potential discharge - Likely to TCU in [place] in the next 24-48 hours Today I spent 50minutes seeing the patient, reviewing Expanse and EPIC notes/diagnostics, discussing the care plan with our care time that includes social work, PT/OT, pharmacy, RT, care home and documenting my impressions and plan in the medical record. Exam Const: Vital Signs, click to edit/add: Vital Signs - 24 hr 11/28/24 12:15 11/28/24 13:29 11/28/24 13:30 Temperature 96.5 F L Pulse Rate 83 84 Pulse Rate [Left P ulse Oximeter] Pulse Rate [Pulse Oximeter] 89 Respiratory Rate 18 Blood Pressure 171/98 H Blood Pressure [Ri ght Arm] Blood Pressure [Ri ght Upper Arm] 167/101 H Pulse Oximetry 92 90 90 Oxygen Delivery Me thod Room Air Oxygen Flow Rate 11/28/24 13:39 11/28/24 13:45 11/28/24 14:00 Temperature Pulse Rate 88 81 75 Pulse Rate [Left P ulse Oximeter] Pulse Rate [Pulse Oximeter] Respiratory Rate Blood Pressure 171/76 H Blood Pressure [Ri ght Arm] Blood Pressure [Ri ght Upper Arm] Pulse Oximetry 98 98 93 Oxygen Delivery Me thod Oxygen Flow Rate 11/28/24 14:02 11/28/24 14:15 11/28/24 14:30 Temperature Pulse Rate 93 82 83 Pulse Rate [Left P ulse Oximeter] Pulse Rate [Pulse Oximeter] Respiratory Rate Blood Pressure 121/75 Blood Pressure [Ri ght Arm] Blood Pressure [Ri ght Upper Arm] Pulse Oximetry 95 92 94 Oxygen Delivery Me thod Oxygen Flow Rate 11/28/24 14:34 11/28/24 14:35 11/28/24 14:45 Temperature Pulse Rate 85 80 90 Pulse Rate [Left P ulse Oximeter] Pulse Rate [Pulse Oximeter] Respiratory Rate Blood Pressure 182/108 H Blood Pressure [Ri ght Arm] Blood Pressure [Ri ght Upper Arm] Pulse Oximetry 92 93 89 Oxygen Delivery Me thod Oxygen Flow Rate 11/28/24 15:00 11/28/24 15:02 11/28/24 15:03 Temperature Pulse Rate 82 87 84 Pulse Rate [Left P ulse Oximeter] Pulse Rate [Pulse Oximeter] Respiratory Rate Blood Pressure 139/126 H Blood Pressure [Ri ght Arm] Blood Pressure [Ri ght Upper Arm] Pulse Oximetry 91 91 92 Oxygen Delivery Me thod Oxygen Flow Rate 11/28/24 15:15 11/28/24 15:30 11/28/24 15:33 Temperature Pulse Rate 102 H 84 108 H Pulse Rate [Left P ulse Oximeter] Pulse Rate [Pulse Oximeter] Respiratory Rate Blood Pressure 182/118 H Blood Pressure [Ri ght Arm] Blood Pressure [Ri ght Upper Arm] Pulse Oximetry 89 90 87 L Oxygen Delivery Me thod Oxygen Flow Rate 11/28/24 15:45 11/28/24 16:00 11/28/24 16:00 Temperature Pulse Rate 84 85 Pulse Rate [Left P ulse Oximeter] Pulse Rate [Pulse Oximeter] Respiratory Rate Blood Pressure Blood Pressure [Ri ght Arm] Blood Pressure [Ri ght Upper Arm] Pulse Oximetry 96 94 Oxygen Delivery Me thod Nasal Cannula Nasal Cannula Nasal Cannula Oxygen Flow Rate 2 2 2 11/28/24 16:02 11/28/24 16:15 11/28/24 16:28 Temperature Pulse Rate 86 82 84 Pulse Rate [Left P ulse Oximeter] Pulse Rate [Pulse Oximeter] Respiratory Rate Blood Pressure 201/116 H 168/94 H Blood Pressure [Ri ght Arm] Blood Pressure [Ri ght Upper Arm] Pulse Oximetry 97 97 93 Oxygen Delivery Me thod Nasal Cannula Nasal Cannula Nasal Cannula Oxygen Flow Rate 2 2 2 11/28/24 16:30 11/28/24 16:32 11/28/24 17:47 Temperature 96.8 F L Pulse Rate 84 88 Pulse Rate [Left P ulse Oximeter] 81 Pulse Rate [Pulse Oximeter] Respiratory Rate 22 Blood Pressure 185/120 H Blood Pressure [Ri ght Arm] 185/104 H Blood Pressure [Ri ght Upper Arm] Pulse Oximetry 94 93 94 Oxygen Delivery Me thod Nasal Cannula Nasal Cannula Nasal Cannula Oxygen Flow Rate 2 2 1 11/28/24 17:47 11/28/24 19:35 11/28/24 23:00 Temperature 96.7 F L Pulse Rate Pulse Rate [Left P ulse Oximeter] 99 68 Pulse Rate [Pulse Oximeter] Respiratory Rate 22 20 20 Blood Pressure Blood Pressure [Ri ght Arm] 139/82 Blood Pressure [Ri ght Upper Arm] Pulse Oximetry 98 Oxygen Delivery Me thod Nasal Cannula Oxygen Flow Rate 1 11/29/24 00:50 11/29/24 00:58 11/29/24 04:25 Temperature 98.0 F 97.6 F Pulse Rate Pulse Rate [Left P ulse Oximeter] 68 70 Pulse Rate [Pulse Oximeter] Respiratory Rate 20 20 20 Blood Pressure Blood Pressure [Ri ght Arm] 157/76 H 167/113 H Blood Pressure [Ri ght Upper Arm] Pulse Oximetry 90 90 91 Oxygen Delivery Me thod Nasal Cannula Nasal Cannula Nasal Cannula Oxygen Flow Rate 1 1 1 11/29/24 07:45 11/29/24 07:45 11/29/24 07:45 Temperature 96.9 F L Pulse Rate Pulse Rate [Left P ulse Oximeter] 79 79 Pulse Rate [Pulse Oximeter] Respiratory Rate 18 18 18 Blood Pressure Blood Pressure [Ri ght Arm] 150/93 H Blood Pressure [Ri ght Upper Arm] Pulse Oximetry 93 91 Oxygen Delivery Me thod Nasal Cannula Nasal Cannula Oxygen Flow Rate 1 1 Labs Labs: Laboratory Results - last 24 hr 11/28/24 11/28/24 11/28/24 12:45 13:15 14:27 WBC 6.14 RBC 4.10 Hgb 13.8 Hct 43.7 MCV 107 H MCH 34 MCHC 32 RDW Coeff of Caron 14.1 Plt Count 163 Neut % (Auto) 74.2 H Lymph % (Auto) 15.0 L [place] % (Auto) 9.8 Eos % (Auto) 0.0 Baso % (Auto) 0.5 Neut # (Auto) 4.60 Lymph # (Auto) 0.90 [place] # (Auto) 0.60 Eos # (Auto) 0.00 Baso # (Auto) 0.03 Abs Immat Gran (auto) 0.03 Imm/Tot Granulo (auto) 0.5 Diff Slide Review Acceptable Review D-Dimer Quant (PE/DVT) < 0.27 Sodium 140 Potassium 4.3 Chloride 104 Carbon Dioxide 27 Anion Gap 9 BUN 28 Creatinine 1.4 Estimated Creat Clear 28.50 Estimated GFR 37 Glucose 147 H Calcium 9.3 Urine Color Yellow Urine Appearance Slightly Cloudy A Urine pH 6.0 Ur Specific [place] >= 1.030 Urine Protein 3+ A Urine Glucose (UA) Negative Urine Ketones Trace A Urine Blood Trace-intact A Urine Nitrite Negative Urine Bilirubin Negative Urine Urobilinogen 0.2 Ur Leukocyte Esterase Negative Urine RBC 2-5 A Urine WBC 2-5 Ur Squamous Epith Cells Many A Urine Bacteria Moderate A SARS-CoV-2 (PCR) Influenza Type A (PCR) Influenza Type B (PCR) RSV (PCR) POC Troponin I 0.03 11/28/24 Unknown WBC RBC Hgb Hct MCV MCH MCHC RDW Coeff of Caron Plt Count Neut % (Auto) Lymph % (Auto) [place] % (Auto) Eos % (Auto) Baso % (Auto) Neut # (Auto) Lymph # (Auto) [place] # (Auto) Eos # (Auto) Baso # (Auto) Abs Immat Gran (auto) Imm/Tot Granulo (auto) Diff Slide Review D-Dimer Quant (PE/DVT) Sodium Potassium Chloride Carbon Dioxide Anion Gap BUN Creatinine Estimated Creat Clear Estimated GFR Glucose Calcium Urine Color Urine Appearance Urine pH Ur Specific [place] Urine Protein Urine Glucose (UA) Urine Ketones Urine Blood Urine Nitrite Urine Bilirubin Urine Urobilinogen Ur Leukocyte Esterase Urine RBC Urine WBC Ur Squamous Epith Cells Urine Bacteria SARS-CoV-2 (PCR) Negative SARS-CoV-2 Influenza Type A (PCR) Negative PCR FLU A Influenza Type B (PCR) Negative PCR FLU B RSV (PCR) POSITIVE PCR RSV A POC Troponin I
[2024-11-29] MEDS: LACTOBACILLUS ACIDOPHILUS 1 TABLET 1 TAB PO (08:54)
[2024-11-29] MEDS: predniSONE 20 MG TABLET 40 MG PO (08:54)
[2024-11-29] MEDS: MULTIVITAMIN/MINERALS 1 TABLET 1 TAB PO (08:55)
[2024-11-29] MEDS: ESCITALOPRAM 10 MG TABLET 20 MG PO (08:55)
[2024-11-29] MEDS: ALBUTEROL SULFATE 2.5 MG/3 ML VIAL.NEB NEB ×3 (08:55→20:34)
[2024-11-29] MEDS: OMEPRAZOLE 20 MG CAPSULE DR 40 MG PO ×2 (08:55→20:31)
[2024-11-29] MEDS: lisinopriL 20 MG TABLET PO ×2 (08:55→20:31)
[2024-11-29] MEDS: ATORVASTATIN CALCIUM 40 MG TABLET PO (08:55)
[2024-11-29] MEDS: METOPROLOL SUCCINATE (XL) 50 MG TAB PO ×2 (08:56→20:35)
[2024-11-29] MEDS: ACETAMINOPHEN 325 MG TABLET 650 MG PO (09:01)
[2024-11-29] MEDS: SODIUM CHLORIDE 0.9 % (FLUSH) 10 ML SYRINGE 5 ML IVF ×2 (11:12→20:33)
[2024-11-29 11:25] LABS: HCO3 VBG 26 mmol/L (21-28); Ionized Calcium* 1.11 mmol/L (1.11-1.30); PCO2 VBG 51 mmHG (40-50); PO2 VBG 33.3 mmHG (25-47)
[2024-11-29 11:32] LABS: Hematocrit 40.2 % (33.0-51.0); Hemoglobin* 12.7 gm/dL (12.0-16.0); Immature Granulocytes Abs Auto 0.04 K/uL (0.00-0.30); Immature Granulocytes Pct Auto 0.8 %; Lymphocytes Absolute Auto 1.11 K/uL (0.90-2.90); Lymphocytes Percent Auto 21.3 % (20-44); Mean Corpuscular HGB Conc 32 gm/dL (32-36); Mean Corpuscular Hemoglobin 33 pg (26-34); Mean Corpuscular Volume 106 fL (80-100); Monocytes Percent Auto 4.8 % (0.0-11.0); Neutrophils Percent Auto 73.1 % (42.0-72.0); Platelet Count* 144 K/uL (140-440); RDW Coefficient of Variation % 13.8 % (11.5-15.5); White Blood Count* 5.21 K/uL (4.50-11.00)
[2024-11-29 11:33] LABS: Slide Review Reflex No
[2024-11-29 11:56] LABS: Chloride* 102 mmol/L (96-114); Potassium* 4.6 mmol/L (3.6-5.1); Sodium* 136 mmol/L (135-149)
[2024-11-29 11:58] LABS: Creatinine* 1.2 mg/dL (0.5-1.5); Est. Creatinine Clearance* 33.25; Estimated Glomerular Filt Rate 45 ml/min
[2024-11-29 11:59] LABS: Anion Gap 11 mEq/L (7-15); Blood Urea Nitrogen* 27 mg/dL (7-30); Calcium* 8.7 mg/dL (8.4-10.6); Carbon Dioxide* 23 mmol/L (20-32); Glucose* 155 mg/dL (60-115); Phosphorus* 4.6 mg/dL (2.5-4.5)
[2024-11-29 12:00] LABS: Alanine Aminotransferase* 26 U/L (4-35); Alkaline Phosphatase* 75 U/L (40-150); Aspartate Amino Transferase* 35 U/L (12-35); Bilirubin Direct* 0.3 mg/dL (0.0-0.5); Bilirubin Total* 0.5 mg/dL (0.1-1.5); Total Protein* 6.4 g/dL (6.0-8.3)
[2024-11-29 12:02] LABS: C Reactive Protein* 0.6 mg/dL (0.5-1.0)
[2024-11-29 12:11] LABS: Troponin I* 0.02 ng/mL (0.01-0.04)
[2024-11-29 12:21] LABS: NT Pro B Type NatriureticPept* 6250 pg/mL
[2024-11-29] MEDS: guaiFENesin 600 MG TAB.ER.12H 1200 MG PO ×2 (12:45→20:30)
[2024-11-29 12:54] LABS: Thyroid Stimulating Hormone* 0.226 uIU/mL (0.270-4.20)
--- NOTE | 2024-11-29 13:29 | PC.SOCIAL ---
Discharge planning: Spoke with pt's dtr, Patricia, regarding d/c plans. If TCU is needed after hospital stay, dtr is requesting placement at [facility] or [facility]. Emailed list of senior care facilities in the area and their Department of Health ratings to dtr at [email or web address]. Called [facility] and was informed there are no beds available at [place] this week. [facility] [phone] and left message with property management coordinator, Ignacia, asking for a call back regarding bed availability. pony worker to follow up as needed.
[2024-11-29] MEDS: 0.9 % SODIUM CHLORIDE 1000 ml 1,000 ML 250 ML IV (15:58)
[2024-11-29] MEDS: METOPROLOL TARTRATE 25 MG TABLET PO ×2 (17:54→20:32)
[2024-11-29] MEDS: DONEPEZIL 5 MG TABLET PO (17:54)
--- NOTE | 2024-11-29 18:35 | PC.NURSE ---
End of Shift [id number]: Patient pleasant and cooperative, alert and oriented. Patient vitally stable, lungs course with expiratory wheezes, BS WNL, IV running NS at 125. Patient SBA with walker. Rates arthritic joint pain 4/10, no pain meds given. Patient tolerating regular diet and urinating well. Patient on high flow at 5 L and 23% with sats at 93/94%. Patient has a moist cough that is occasionally productive. Patient currently up in chair.
--- NOTE | 2024-11-29 18:35 | PC.NURSE ---
End of shift pt has been very pleasant. no pain, but her family said she takes Tylenol daily. Alert & oriented x 4. Pt is ambulating with SBA using a walker she has 02 to go to the BR. she was 84 % on RA. pt is continent and incontinent at times. SL to L AC patent. this am but was later to be found bad later. she needs 1 liter NC with activity. Aerobika and IS education and teaching done. Bed alarm on, call light within reach.
[2024-11-29] MEDS: TRAZODONE HCL 50 MG TABLET PO (20:31)
[2024-11-29] MEDS: RIVAROXABAN 10 MG TABLET 15 MG PO (20:32)
[2024-11-30] VITALS (11 sets, daily range): BP systolic 148–192; BP diastolic 91–149; PULSE 63–87; RESP 18–22; TEMP 36.1–36.6; O2SAT 92–95
[2024-11-30] MEDS: METOPROLOL TARTRATE 25 MG TABLET PO ×6 (00:58→20:31)
[2024-11-30] MEDS: ALBUTEROL SULFATE 2.5 MG/3 ML VIAL.NEB NEB (04:20)
--- NOTE | 2024-11-30 05:51 | PC.NURSE ---
19-: pleasant and cooperative. SBA w/ walker to BR, pt requiring 1L O2 via NC when ambulating. Pt on HFNC -, O2 sats maintaining 90-95%. Rhonchi & Wheezing auscultated in lung gil, encouraging aerobika use & deep breathing exercises, prn Albuterol given. BP elevated; metoprolol given Q4H as scheduled. Around 0530 pt c/o feeling like she is drowning with HFNC on & requested to take a break from it, policy writer sales allowed.
[2024-11-30] MEDS: LEVOTHYROXINE 75 MCG TABLET PO (06:12)
[2024-11-30 07:04] LABS: HCO3 VBG 28 mmol/L (21-28); Lactate* 1.5 mmol/L (0.5-1.9); PCO2 VBG 55 mmHG (40-50); PO2 VBG 32.1 mmHG (25-47); pH VBG 7.317 (7.32-7.43)
[2024-11-30 07:09] LABS: Hematocrit 39.2 % (33.0-51.0); Hemoglobin* 12.5 gm/dL (12.0-16.0); Mean Corpuscular HGB Conc 32 gm/dL (32-36); Mean Corpuscular Hemoglobin 34 pg (26-34); Mean Corpuscular Volume 105 fL (80-100); Platelet Count* 158 K/uL (140-440); Red Blood Count 3.73 m/uL (4.00-5.20); White Blood Count* 5.84 K/uL (4.50-11.00)
[2024-11-30 07:23] LABS: Slide Review Reflex No
[2024-11-30 07:33] LABS: Chloride* 102 mmol/L (96-114); Potassium* 4.8 mmol/L (3.6-5.1); Sodium* 135 mmol/L (135-149)
[2024-11-30 07:36] LABS: Anion Gap 7 mEq/L (7-15); Blood Urea Nitrogen* 29 mg/dL (7-30); Carbon Dioxide* 26 mmol/L (20-32); Creatinine* 1.2 mg/dL (0.5-1.5); Est. Creatinine Clearance* 33.25; Estimated Glomerular Filt Rate 45 ml/min
[2024-11-30 07:37] LABS: Calcium* 8.8 mg/dL (8.4-10.6); Glucose* 131 mg/dL (60-115)
--- NOTE | 2024-11-30 08:15 | PM.IMPN1 ---
Progress Note: A&P Assessment and plan (1) Acute hypoxic respiratory failure: Problem details: - Suspect due to RSV and probable reactive airway/undiagnosed asthma. - supplemental oxygen to keep sats above 90% - Albuterol/Duo nebs prn and start a short course of prednisone -budesonide nebs ordered -vibratory peep and ISP -appreciate RT collaborating Status: Acute (2) Respiratory syncytial virus (RSV): Problem details: - as above and supportive cares -adding mucinex Status: Acute (3) Stage 3 chronic kidney disease: Problem details: - secondary to hyperparathyroidism. - baseline 1.1-1.2, creatine mildly elevated at 1.4 today. 11/30 - creatinine back to baseline. Status: Chronic (4) Rheumatoid arthritis: Problem details: Dxed age 30, followed by Dr. Sherley Forde ([facility]) Status: Chronic (5) Primary hypertension: Problem details: -poorly controlled here -changed lisinopril from 20 BID to 40 am -added amlodipine 5 -holding clonidine prn order -adding 25 of metoprolol prn (scheduled with hold parameters) Status: Chronic (6) Hypothyroidism: Problem details: tsh suppresed, T4 pending. likely sick euthyroid. Status: Chronic (7) Hyperlipidemia: Problem details: - continue atorvastatin Status: Chronic (8) Crohn's disease: Problem details: Per Dr. Ellison, GI at [facility] from outside records, colonoscopy last done February 2018 and due again 3 years for surveillance, saw Dr. Marie ([facility] gastroenterology) 10/11/2021 - is on certolizumab Status: Chronic (9) Chronic atrial fibrillation: Problem details: Follows cardiology - continue Xarelto and metoprolol Status: Chronic Subjective Date Seen: 11/30/24 Interval history: Daily Progress Note - Hospital Medicine Day #: 3 CC: RSV bronchitis, hypoxic respiratory failure 24 HOUR UPDATE: Improved fairly today. Still wheezing; no energy. Less of the continuous cough. Afebrile overnight, hypertensive up to 160s over 118. Med adjustments were made. Pulse 60s. Respiratory rate 18 to 20, less labored today. Satting low 90s on room air while at rest, still desaturating upon exertion. Total white count remains normal. Hemoglobin is stable. Platelets are normal. Her venous blood gas reveals a mild acidosis 7.317. Mild bump in her CO2 55. It was 51 yesterday. There is no drowsiness or fatigue associated necessarily with this level of CO2 retention. She has been trialing high-flow O2 to help with a CO2 retention and the amount of mucus production she has had with RSV. Electrolytes are normal. Glucose is well managed. Her lactate is now normal. Chest x-ray ordered today reveals Persistent patchy areas of bronchial wall thickening in both lung bases. Small right pleural effusion. No significant change. Reviewing chest CT from admission-to biotics were not continued. Scattered tree-in-bud nodularity in the lingular segment of the left upper lobe, suggestive of underlying infectious versus inflammatory bronchiolitis. Objective: I awake her when I enter the room - POX on RA is 92%. Audible wheezing appreciate. Vitals: Reviewed, hypoxia resolved at rest; exertion still drops <88% see above Lungs: wheezes throughout, upper airway congestion, rhonchus Cardiac: S1S2. Disposition/Potential discharge - Likely to TCU in the next 24-48 hours Today I spent 50minutes seeing the patient, reviewing Expanse and EPIC notes/diagnostics, discussing the care plan with our care time that includes social work, PT/OT, pharmacy, RT, correction and documenting my impressions and plan in the medical record. Exam Const: Vital Signs, click to edit/add: Vital Signs - 24 hr 11/29/24 08:26 11/29/24 11:14 11/29/24 15:39 Temperature 97.4 F L 98.3 F Pulse Rate [Left P ulse Oximeter] 91 85 Respiratory Rate 18 24 Blood Pressure [Ri t Arm] 164/89 H 158/106 H Pulse Oximetry 82 L 95 92 Oxygen Delivery Me thod Room Air Room Air Room Air Nasal Can nula Oxygen Flow Rate 1 Fraction of Inspir ed Oxygen 11/29/24 15:39 11/29/24 15:39 11/29/24 15:45 Temperature Pulse Rate [Left P ulse Oximeter] 85 95 Respiratory Rate 24 Blood Pressure [Ri t Arm] 143/122 H Pulse Oximetry 92 Oxygen Delivery Me thod Room Air Oxygen Flow Rate Fraction of Inspir ed Oxygen 11/29/24 17:14 11/29/24 17:25 11/29/24 19:45 Temperature 97.8 F Pulse Rate [Left P ulse Oximeter] 75 Respiratory Rate 22 Blood Pressure [Ri ght Arm] 163/101 H Pulse Oximetry 92 Oxygen Delivery Me thod High Flow Nasal Ca nnula Oxygen Flow Rate 5 20 Fraction of Inspir ed Oxygen 23 23 23 11/29/24 21:00 11/29/24 23:00 11/29/24 23:00 Temperature Pulse Rate [Left P ulse Oximeter] Respiratory Rate Blood Pressure [Ri ght Arm] Pulse Oximetry Oxygen Delivery Me thod High Flow Nasal Ca nnula Oxygen Flow Rate Fraction of Inspir ed Oxygen 21 11/30/24 00:55 11/30/24 01:00 11/30/24 03:00 Temperature 96.9 F L Pulse Rate [Left P ulse Oximeter] 73 Respiratory Rate 20 Blood Pressure [Ri ght Arm] 164/99 H Pulse Oximetry 95 Oxygen Delivery Me thod High Flow Nasal Ca nnula Oxygen Flow Rate 20 Fraction of Inspir ed Oxygen 21 25 25 11/30/24 04:33 11/30/24 05:00 11/30/24 07:58 Temperature 97.9 F Pulse Rate [Left P ulse Oximeter] 83 70 Respiratory Rate 22 18 Blood Pressure [Ri ght Arm] 189/149 H Pulse Oximetry 93 Oxygen Delivery Me thod High Flow Nasal Ca nnula Oxygen Flow Rate 20 Fraction of Inspir ed Oxygen 25 11/30/24 08:00 11/30/24 08:00 Temperature 97.1 F L Pulse Rate [Left P ulse Oximeter] 70 Respiratory Rate 18 18 Blood Pressure [Ri ght Arm] 192/118 H Pulse Oximetry 93 93 Oxygen Delivery Me thod Room Air Room Air Oxygen Flow Rate Fraction of Inspir ed Oxygen Labs Labs: Laboratory Results - last 24 hr 11/29/24 11/29/24 11/30/24 11:10 11:10 06:10 WBC 5.21 5.84 RBC 3.80 L 3.73 L Hgb 12.7 12.5 Hct 40.2 39.2 MCV 106 H 105 H MCH 33 34 MCHC 32 32 RDW Coeff of Caron 13.8 Plt Count 144 158 Neut % (Auto) 73.1 H Lymph % (Auto) 21.3 [place] % (Auto) 4.8 Eos % (Auto) 0.0 Baso % (Auto) 0.0 Neut # (Auto) 3.80 Lymph # (Auto) 1.11 [place] # (Auto) 0.30 Eos # (Auto) 0.00 Baso # (Auto) 0.00 Abs Immat Gran (auto) 0.04 Imm/Tot Granulo (auto) 0.8 VBG pH 7.310 L 7.317 L VBG pCO2 51 H 55 H VBG pO2 33.3 32.1 VBG HCO3 26 28 Sodium 136 135 Potassium 4.6 4.8 Chloride 102 102 Carbon Dioxide 23 26 Anion Gap 11 7 BUN 27 29 Creatinine 1.2 1.2 Estimated Creat Clear 33.25 33.25 Estimated GFR 45 45 Glucose 155 H 131 H Lactate 3.0 H 1.5 Calcium 8.7 8.8 Ionized Calcium Madiha 1.11 Phosphorus 4.6 H 4.0 Total Bilirubin 0.5 Direct Bilirubin 0.3 AST 35 ALT 26 Alkaline Phosphatase 75 Troponin I 0.02 C-Reactive Protein 0.6 NT-Pro-B Natriuret Pep 6250 Total Protein 6.4 Albumin 4.0 4.0 4.0 TSH 0.226 L
[2024-11-30] MEDS: OMEPRAZOLE 20 MG CAPSULE DR 40 MG PO ×2 (09:33→20:32)
[2024-11-30] MEDS: lisinopriL 20 MG TABLET 40 MG PO (09:33)
[2024-11-30] MEDS: LACTOBACILLUS ACIDOPHILUS 1 TABLET 1 TAB PO (09:33)
[2024-11-30] MEDS: ATORVASTATIN CALCIUM 40 MG TABLET PO (09:34)
[2024-11-30] MEDS: AMLODIPINE 5 MG TABLET PO (09:34)
[2024-11-30] MEDS: DONEPEZIL 5 MG TABLET PO (09:34)
[2024-11-30] MEDS: predniSONE 20 MG TABLET 40 MG PO (09:34)
[2024-11-30] MEDS: guaiFENesin 600 MG TAB.ER.12H 1200 MG PO ×2 (09:34→20:31)
[2024-11-30] MEDS: ESCITALOPRAM 10 MG TABLET 20 MG PO (09:34)
[2024-11-30] MEDS: METOPROLOL SUCCINATE (XL) 50 MG TAB PO ×2 (09:35→20:32)
[2024-11-30] MEDS: SODIUM CHLORIDE 0.9 % (FLUSH) 10 ML SYRINGE 5 ML IVF ×2 (09:35→20:32)
[2024-11-30] MEDS: MULTIVITAMIN/MINERALS 1 TABLET 1 TAB PO (09:35)
[2024-11-30] MEDS: FEBUXOSTAT 40 MG TABLET PO (10:05)
[2024-11-30] MEDS: BUDESONIDE 0.5 MG/2ML NEB NEB ×2 (11:08→20:32)
[2024-11-30] MEDS: IPRAT-ALBUT 0.5-2.5 MG/3 ML NEB 1 NEB IH ×4 (11:29→21:10)
--- NOTE | 2024-11-30 11:54 | CRLHL7_ITS ---
For Patients: As a result of the Cures Act, medical imaging exams and procedure reports are released immediately into your electronic medical record. You may view this report before your referring provider. If you have questions, please contact your health care provider. INDICATION: F/U RSV TECHNIQUE: Chest 2 views COMPARISON: CT 11/28/2024 FINDINGS: Small right pleural effusion. Cardiomegaly. Patchy bronchial wall thickening noted bilaterally, as before. No acute fracture. IMPRESSION: Persistent patchy areas of bronchial wall thickening in both lung bases. Small right pleural effusion. No significant change. Dictated by Solo Kilgore MD @ 11/30/2024 12:50:47 PM (Electronically Signed)
--- NOTE | 2024-11-30 12:20 | REH.OT ---
OT: Kim received from in rounds, patient unavailable 2x this am, will recheck to eval.
[2024-11-30 13:16] LABS: HCO3 VBG 25 mmol/L (21-28); PCO2 VBG 48 mmHG (40-50); PO2 VBG < 30.1 mmHG (25-47); pH VBG 7.327 (7.32-7.43)
[2024-11-30 13:17] LABS: Hematocrit 41.3 % (33.0-51.0); Immature Granulocytes Abs Auto 0.06 K/uL (0.00-0.30); Immature Granulocytes Pct Auto 0.8 %; Lymphocytes Percent Auto 16.6 % (20-44); Mean Corpuscular HGB Conc 32 gm/dL (32-36); Mean Corpuscular Hemoglobin 33 pg (26-34); Mean Corpuscular Volume 106 fL (80-100); Monocytes Percent Auto 7.2 % (0.0-11.0); Neutrophils Percent Auto 75.4 % (42.0-72.0); Platelet Count* 157 K/uL (140-440); RDW Coefficient of Variation % 14.1 % (11.5-15.5); Red Blood Count 3.89 m/uL (4.00-5.20); White Blood Count* 7.67 K/uL (4.50-11.00)
[2024-11-30 13:35] LABS: Chloride* 102 mmol/L (96-114); Potassium* 4.3 mmol/L (3.6-5.1); Sodium* 134 mmol/L (135-149)
[2024-11-30 13:37] LABS: Creatinine* 1.1 mg/dL (0.5-1.5); Est. Creatinine Clearance* 36.28; Estimated Glomerular Filt Rate 50 ml/min
[2024-11-30 13:38] LABS: Anion Gap 9 mEq/L (7-15); Blood Urea Nitrogen* 28 mg/dL (7-30); Calcium* 8.7 mg/dL (8.4-10.6); Carbon Dioxide* 23 mmol/L (20-32); Glucose* 160 mg/dL (60-115)
[2024-11-30 13:41] LABS: Slide Review Reflex No
--- NOTE | 2024-11-30 15:11 | PC.NURSE ---
Shift Summary: Patient pleasant and cooperative. Vitals stable, BP still elevated. Patient denies headache, pain or SOB. Up with one assist, walker and gait belt. Not requiring o2, not tolerating hiflow, RT aware. Tolerating regular diet. Worked with PT/OT today, was able to ambulate in halls. Ow sat >90% on RA. Patient continues to have expiratory wheeze, schedule nebs given.
[2024-11-30] MEDS: TRAZODONE HCL 50 MG TABLET PO (20:31)
[2024-11-30] MEDS: RIVAROXABAN 10 MG TABLET 15 MG PO (20:32)
--- NOTE | 2024-11-30 22:50 | PC.NURSE ---
End of Shift: Patient pleasant and cooperative. Afebrile. O2 sats greater than 90% on room air. C/o chronic pain from arthritis but declined PRN pain medication. Up to chair and bathroom with SBA and walker. Tolerating regular diet with no nausea.
[2024-12-01 00:05] VITALS: BP 168/89; PULSE 75; RESP 22; TEMP 36.3; O2SAT 93
[2024-12-01] MEDS: IPRAT-ALBUT 0.5-2.5 MG/3 ML NEB 1 NEB IH ×3 (01:56→10:09)
[2024-12-01] MEDS: METOPROLOL TARTRATE 25 MG TABLET PO ×3 (01:56→08:53)
[2024-12-01 02:20] VITALS: BP 173/128; PULSE 79; RESP 18; TEMP 35.9; O2SAT 95
--- NOTE | 2024-12-01 06:53 | PC.NURSE ---
shift note: dry hacky cough intermittently throughout the night. LS with exp wheezing and crkls. sats cont 92-95% RA. pt denies c.p or pressure. Pt states she feels weak when ambulating to bathroom.
[2024-12-01] MEDS: LEVOTHYROXINE 75 MCG TABLET PO (07:30)
[2024-12-01 07:41] VITALS: BP 185/98; PULSE 74; RESP 18; TEMP 36.3; O2SAT 92
--- NOTE | 2024-12-01 07:43 | PC.NURSE ---
shift note: pt BP 173/128 p=90 @ 0218. pt asymptomatic of elevated BP. scheduled Metoprolol given. BP @ 0530 Lt) 201/129 p=89 Rt) 181/125 p=80. Pt asymptomatic of elevated BP. Dr. Seay notified and orders to restart lisinopril
[2024-12-01] MEDS: BUDESONIDE 0.5 MG/2ML NEB NEB (08:50)
[2024-12-01] MEDS: FEBUXOSTAT 40 MG TABLET PO (08:51)
[2024-12-01] MEDS: OMEPRAZOLE 20 MG CAPSULE DR 40 MG PO (08:52)
[2024-12-01] MEDS: ESCITALOPRAM 10 MG TABLET 20 MG PO (08:52)
[2024-12-01] MEDS: guaiFENesin 600 MG TAB.ER.12H 1200 MG PO (08:52)
[2024-12-01] MEDS: AMLODIPINE 5 MG TABLET PO (08:52)
[2024-12-01] MEDS: lisinopriL 20 MG TABLET 40 MG PO (08:53)
[2024-12-01] MEDS: ATORVASTATIN CALCIUM 40 MG TABLET PO (08:53)
[2024-12-01] MEDS: METOPROLOL SUCCINATE (XL) 50 MG TAB PO (08:53)
[2024-12-01] MEDS: MULTIVITAMIN/MINERALS 1 TABLET 1 TAB PO (08:53)
[2024-12-01] MEDS: predniSONE 20 MG TABLET 40 MG PO (08:53)
[2024-12-01] MEDS: LACTOBACILLUS ACIDOPHILUS 1 TABLET 1 TAB PO (08:53)
[2024-12-01] MEDS: DONEPEZIL 5 MG TABLET PO (08:53)
[2024-12-01] MEDS: SODIUM CHLORIDE 0.9 % (FLUSH) 10 ML SYRINGE 5 ML IVF (08:54)
--- NOTE | 2024-12-01 09:42 | PC.SOCIAL ---
Discharge planning: Called Patricia bragg, and informed her of current expectation pt will not meet criteria for a rehab TCU stay and will be able to discharge home. Dtr was pleased with this plan and had no concerns about discharge home. intake worker to follow up as needed.
[2024-12-01 10:18] VITALS: BP 171/111; PULSE 93; RESP 18; TEMP 36.2; O2SAT 92
--- NOTE | 2024-12-01 10:20 | PM.DS1 ---
DS: Providers Provider Date Seen: 12/01/24 Date of admission: 11/29/24 09:01 Primary care physician: Yari Craig PA-C Admitting Clinician: Tl Seay MD Consults: 11/30/24 Consult to Occupational Therapy [CONS] Routine Comment: Reason(s) for OT Consult:: Evaluate and Treat Any Restrictions?:: No Restrictions Consult to Physical Therapy [CONS] Routine Comment: Reason(s) for PT Consult:: Evaluate and Treat Any Restrictions?:: No Restrictions Attending Physician on discharge: EVELIN Peralta, [facility] Date of Discharge: 12/01/24 DS: Diagnosis Discharge Diagnosis (1) Acute hypoxic respiratory failure: Status: Acute Problem details: RESOLVED - Suspect due to RSV and probable reactive airway/undiagnosed asthma. CT chest consistent with findings. - supplemental oxygen to keep sats above 90% - patient noncompliant with oxygen, improving with minimal use of supplemental oxygen - Albuterol/Duo nebs prn - patient found these helpful and will continue as needed at home - prednisone discontinued in management of acute RSV infection. Pressures have been higher. - budesonide nebs ordered - vibratory peep and ISP - encouraged to continue at discharge - appreciate RT collaborating Outpatient follow-up with PCP for further testing, PFTs, chronic management. (2) Respiratory syncytial virus (RSV): Status: Acute Problem details: - as above and supportive cares - adding mucinex - continue at discharge (3) Stage 3 chronic kidney disease: Status: Chronic Problem details: - secondary to hyperparathyroidism. - baseline 1.1-1.2, creatine mildly elevated at 1.4 today. 11/30 - creatinine back to baseline. Stable at discharge. (4) Rheumatoid arthritis: Status: Chronic Problem details: Dxed age 30, followed by Dr. Sherley Forde ([facility]) (5) Primary hypertension: Status: Chronic Problem details: -poorly controlled here -changed lisinopril from 20 BID to 40 am -added amlodipine 5 -holding clonidine prn order -adding 25 of metoprolol prn (scheduled with hold parameters) On discharge, will continue home dose metoprolol 50mg bid (afib), lisinopril 40mg qd, amlodipine 5mg daily, clonidine prn. Close follow up with PCP next week for further medication management. (6) Hypothyroidism: Status: Chronic Problem details: tsh suppresed, T4 1.10. likely sick euthyroid. (7) Hyperlipidemia: Status: Chronic Problem details: - continue atorvastatin (8) Crohn's disease: Status: Chronic Problem details: Per Dr. Ellison, GI at [facility] from outside records, colonoscopy last done February 2018 and due again 3 years for surveillance, saw Dr. Marie ([facility]) 10/11/2021 - is on certolizumab (9) Chronic atrial fibrillation: Status: Chronic Problem details: Follows cardiology - continue Xarelto and metoprolol DS: Summary Hospital Course Hospital Course: Course of care and details as noted above. No longer requiring oxygen supplementation, discharged to home to continue symptomatic cares. Remainder of chronic medical comorbidities were monitored and managed with home medications. Status at Discharge Functional status at discharge: independent ambulation Overall status at discharge: patient is progressing back to baseline Time Spent with Patient Time attestation: Total time spent providing and/or coordinating discharge services: Time spent: Greater than 30 minutes Exam Narrative: Exam Narrative: PHYSICAL EXAM General: Pleasant, conversant, NAD Cardiovascular: RRR Pulmonary: No dyspnea on room air Neurological: Alert, answering questions appropriately Skin: Warm, dry. Const: Vital Signs, click to edit/add: Vital Signs - 24 hr 11/30/24 11:00 11/30/24 11:00 11/30/24 15:00 Temperature 97.8 F 97.5 F L Pulse Rate [Left P ulse Oximeter] 63 78 Respiratory Rate 20 20 Blood Pressure [Ri ght Arm] 149/99 H 148/93 H Pulse Oximetry 92 93 Oxygen Delivery Me thod Room Air Room Air Fraction of Inspir ed Oxygen 25 11/30/24 15:00 11/30/24 15:00 11/30/24 19:00 Temperature 97.8 F Pulse Rate [Left P ulse Oximeter] 78 87 Respiratory Rate 20 20 Blood Pressure [Ri ght Arm] 151/91 H Pulse Oximetry 93 94 Oxygen Delivery Me thod Room Air Room Air Fraction of Inspir ed Oxygen 11/30/24 23:00 12/01/24 00:05 12/01/24 02:20 Temperature 97.3 F L 96.7 F L Pulse Rate [Left P ulse Oximeter] 75 79 Respiratory Rate 22 22 18 Blood Pressure [Ri ght Arm] 168/89 H 173/128 H Pulse Oximetry 93 93 95 Oxygen Delivery Me thod Room Air Room Air Room Air Fraction of Inspir ed Oxygen 12/01/24 07:41 12/01/24 07:41 12/01/24 07:41 Temperature 97.4 F L Pulse Rate [Left P ulse Oximeter] 74 Respiratory Rate 18 18 18 Blood Pressure [Ri ght Arm] 185/98 H Pulse Oximetry 92 92 Oxygen Delivery Me thod Room Air Room Air Fraction of Inspir ed Oxygen DS: Data Data Completed and Pending Labs on day of discharge: Labs from last 24 hours 11/30/24 11/30/24 11/30/24 13:10 12:22 06:10 WBC 7.67 RBC 3.89 L Hgb 13.0 Hct 41.3 MCV 106 H MCH 33 MCHC 32 RDW Coeff of Caron 14.1 Plt Count 157 Neut % (Auto) 75.4 H Lymph % (Auto) 16.6 L Mitchell % (Auto) 7.2 Eos % (Auto) 0.0 Baso % (Auto) 0.0 Neut # (Auto) 5.80 Lymph # (Auto) 1.30 Mitchell # (Auto) 0.60 Eos # (Auto) 0.00 Baso # (Auto) 0.00 Abs Immat Gran (auto) 0.06 Imm/Tot Granulo (auto) 0.8 VBG pH 7.327 VBG pCO2 48 VBG pO2 < 30.1 VBG HCO3 25 Sodium 134 L Potassium 4.3 Chloride 102 Carbon Dioxide 23 Anion Gap 9 BUN 28 Creatinine 1.1 Estimated Creat Clear 36.28 Estimated GFR 50 Glucose 160 H Calcium 8.7 Free T4 1.10 Lab Acknowledgement Test Added Imaging Chest x-ray: Attestation: I have reviewed the pertinent imaging results. Radiologist's impression: Small right pleural effusion. Cardiomegaly. Patchy bronchial wall thickening noted bilaterally, as before. No acute fracture. IMPRESSION: Persistent patchy areas of bronchial wall thickening in both lung bases. Small right pleural effusion. No significant change. CT chest: Attestation: I have reviewed the pertinent imaging results. Radiologist's impression: Lower neck: The visualized thyroid is unremarkable. Cardiovascular: Heart size is enlarged. Thoracic aorta and pulmonary artery are normal in caliber. Moderate atherosclerotic calcifications of the aortic arch. Coronary arterial calcifications. Mediastinum and lymph nodes: Unremarkable. No pathologic mediastinal or hilar lymphadenopathy by size criteria. Lungs: No focal consolidation. Tree-in-bud nodularity in the lingular segment of the left upper lobe. Mosaic attenuation pattern of opacification diffusely, nonspecific but can be seen with atypical infection, air trapping or edema. Linear bandlike opacification of the lung bases bilaterally, likely subsegmental atelectasis and/or scarring. Airways: The trachea remains patent and midline. Mild diffuse peribronchial wall thickening. Pleura: No pleural effusions or pneumothorax Chest wall: Unremarkable. Bones: No acute osseous abnormalities. Mild degenerative changes of the thoracic spine. Upper abdomen: No acute findings in the visualized upper abdomen. IMPRESSION: Scattered tree-in-bud nodularity in the lingular segment of the left upper lobe, suggestive of underlying infectious versus inflammatory bronchiolitis. Discharge Plan Discharge Disposition: Home, Self-Care Date of Admission: 11/29/24 09:01 Attending Provider on Discharge: Radha Galvez Primary Care Provider: Yari Craig Condition: Stable Anticipated Discharge Date/Time: 12/01/24 10:03 Discharge Medications: New lisinopril 20 mg Tablet 40 mg PO QAM Qty: 60 0RF amlodipine 5 mg Tablet 5 mg PO DAILY Qty: 30 0RF guaifenesin [Mucinex] 600 mg Tablet Extended Release 12hr 1,200 mg PO BID Qty: 20 0RF ipratropium-albuterol 0.5 mg-3 mg(2.5 mg base)/3 mL solution for nebulization 3 ml inhalation Q6H PRNQty: 180 0RF Continued cholecalciferol (vitamin D3) 25 mcg (1,000 unit) capsule 25 mcg PO DAILY atorvastatin 40 mg tablet 40 mg PO DAILY loperamide [Imodium A-D] 2 mg capsule 2 mg PO Q6H PRN clonidine HCl 0.1 mg tablet 0.1 mg PO BID PRN trazodone 50 mg tablet 50 mg PO QHS acetaminophen 500 mg capsule 1,000 mg PO TID diclofenac sodium 1 % gel 2 g topical QID PRN Rx Instructions: apply to single elbow, wrist or hand; for hand includes palm/fingers/back of hand multivitamin [Daily Multi-Vitamin] Tablet 1 tab PO QAM metoprolol succinate 50 mg tablet extended release 24 hr 50 mg PO BID Qty: 180 3RF Culturelle 10 billion cell capsule 1 cap PO DAILY alendronate 70 mg tablet 70 mg PO Q7D Rx Instructions: MONDAYS escitalopram oxalate 20 mg tablet 20 mg PO DAILY febuxostat 40 mg tablet 40 mg PO DAILY Cimzia 400 mg/2 mL (200 mg/mL x 2) syringe kit 400 mg subcut Q14D Xarelto 15 mg tablet 15 mg PO HS omeprazole 40 mg capsule,delayed release(DR/EC) 40 mg PO BID levothyroxine 75 mcg tablet 75 mcg PO DAILY Qty: 90 3RF donepezil [Aricept] 5 mg tablet 5 mg PO HS cephalexin 250 mg capsule 250 mg PO DAILY Qty: 30 1RF Discontinued lisinopril 20 mg tablet 20 mg PO BID Qty: 180 3RF sulfamethoxazole-trimethoprim [Bactrim DS] 800-160 mg tablet 1 tab PO BID Qty: 14 0RF Discharge Orders: Discharge Order (Routine); Ordered 12/01/24 Ordered By: Radha Galvez Patient Education: RSV (Respiratory Syncytial Virus) Infection (GEN) Additional Instructions: Home to rest. Continue to ambulate short, frequent distances throughout the day. Sleep with your head/chest elevated. Use your Aerobika and Incentive spirometry hourly. Continue mucinex twice daily. Nebulizers if they are helpful. Your blood pressure medications have been changed as follows: Lisinopril 40mg once daily. Amlodipine has been added once daily. Continue metoprolol twice daily. Follow up with your PCP next week for further medication management. Activity Level: Activity as Tolerated Discharge Diet: Regular Follow Up Appointments: Yari Craig PA-C [Primary Care Provider] - 12/08/24 8:30 am ([facility] for follow-up.) Forms: [employer] Info Instructions
--- NOTE | 2024-12-01 11:40 | PC.NURSE ---
Pt alert and oriented. Pt had no complaints of pain. Pt's VS WNL expect BP which Pt has HTN; see EMAR for interventions. Pt SBA with walker and gait belt. Pt had a shower with staff this morning. Pt's IV removed and catheter intact. Pt's son at bedside early am and for discharge. Pt to discharge home with son and daughter.
== END 2024-12-01 11:21 | disposition home or self-care (01) | DRG 189 ==
LOC: ED 16:20 → MEDSURG 20:09
PROVIDERS: Admitting Provider Family Medicine; Emergency Provider Student in an Organized Health Care Education/Training Program; PCP Physician Assistant Medical; Visit Provider Family Medicine
DX: J96.01 Acute respiratory failure with hypoxia (principal); I48.20 Chronic atrial fibrillation, unspecified; K50.919 Crohn's disease, unspecified, with unspecified complications; J96.02 Acute respiratory failure with hypercapnia; J20.5 Acute bronchitis due to respiratory syncytial virus; M06.9 Rheumatoid arthritis, unspecified; I12.9 Hypertensive chronic kidney disease with stage 1 through stage 4 chronic kidney disease, or unspecified chronic kidney disease; N18.30 Chronic kidney disease, stage 3 unspecified; G31.84 Mild cognitive impairment of uncertain or unknown etiology; N32.81 Overactive bladder; F32.9 Major depressive disorder, single episode, unspecified; K21.9 Gastro-esophageal reflux disease without esophagitis; M81.0 Age-related osteoporosis without current pathological fracture; Z86.73 Personal history of transient ischemic attack (TIA), and cerebral infarction without residual deficits; E03.9 Hypothyroidism, unspecified; Z87.440 Personal history of urinary (tract) infections; E78.2 Mixed hyperlipidemia
CPT/HCPCS: 36415; 71046; 71250; 80048; 80069; 80076; 81001; 82330; 82803; 83605; 83880; 84439; 84443; 84484; 85025; 85027; 85379; 86140; 87086; 87631; 93005; 94640; 94761; 97161; 97165; 97535; 99284; 99285; A9153; A9270; G0378; J0696; J7030; J7512; J7626

== ENCOUNTER 2024-12-08 08:55 | Outpatient (CLI) | payer BC, SELFPAY | END 2024-12-08 08:56 | disposition home or self-care (01) | LOC: FRMREF 08:57 | PROVIDERS: PCP Physician Assistant Medical; Visit Provider Physician Assistant Medical | DX: N39.0 Urinary tract infection, site not specified (principal) | CPT/HCPCS: 87086 ==

== ENCOUNTER 2025-02-02 13:48 | Outpatient (CLI) | payer MEDICARE, BC, SELFPAY ==
--- NOTE | 2025-02-02 14:00 | CRLHL7_ITS ---
For Patients: As a result of the Century Cures Act, medical imaging exams and procedure reports are released immediately into your electronic medical record. You may view this report before your referring provider. If you have questions, please contact your health care provider. INDICATION: Possible hemorrhagic cyst on CT COMPARISON: CT 01/14/2025 TECHNIQUE: 2D garcia scale and color Doppler images were acquired of the pelvis using a transabdominal and transvaginal approach. FINDINGS: Uterus is absent. Ovaries not visualized. There are no suspicious fluid collections within the cul-de-sac. IMPRESSION: Ovaries not visualized. Dictated by Solo Kilgore MD @ 02/02/2025 6:10:03 PM (Electronically Signed)
== END 2025-02-02 13:49 | disposition home or self-care (01) ==
LOC: US 13:52
PROVIDERS: PCP Physician Assistant Medical; Visit Provider Obstetrics & Gynecology
DX: N94.9 Unspecified condition associated with female genital organs and menstrual cycle (principal)
CPT/HCPCS: 76830; 76856

== ENCOUNTER 2025-03-03 12:54 | Outpatient (CLI) | payer BC, SELFPAY ==
--- NOTE | 2025-03-03 13:00 | CRLHL7_ITS ---
For Patients: As a result of the Century Cures Act, medical imaging exams and procedure reports are released immediately into your electronic medical record. You may view this report before your referring provider. If you have questions, please contact your health care provider. XR DXA Bone Mineral Density (BMD) Reason for exam: Osteoporosis, history of breast cancer and AML. Current height (in): 62. Weight (lb): 158. Menopause age: 48. Ethnicity: White. 1. Have you had a previous hip or vertebral fracture? No. 2. Have you had any fractures during your adult life which did not result from significant trauma (e.g., auto accident)? No. 3. Did either of your parents have a hip fracture? No. 4. Do you smoke? No. 5. Have you ever taken Glucocorticoids? Yes. 6. Do you have rheumatoid arthritis? Yes. 7. Do you have secondary osteoporosis? No. 8. Do you drink 3 or more alcoholic drinks per day? No. 9. Are you being treated for osteoporosis? No. 10. Have you ever taken any of the following medications: Actonel, Evista, Fosamax, Miacalcin, Reclast, Boniva, Forteo, HRT (i.e. estrogen/hormone therapy), Protelos, Prolia, Vitamin D, Calcium, other ??? please specify. ANSWER: Yes, Fosamax, vitamin D, calcium and unspecified ???other.? 11. Do you have any of the following medical conditions: Anorexia or bulimia, asthma or emphysema, end stage renal disease, hyperparathyroidism, any seizure disorders, cancer, inflammatory bowel diseases, hysterectomy, other ??? please specify. ANSWER: Yes, Inflammatory bowel disease, Crohn???s disease, atrial fibrillation. 12. What was your maximum height (inches)? 66. 13. Do you perform weight bearing exercise regularly? No. 14. Do you regularly consume dairy products? No. 15. Do you drink caffeinated beverages? Yes. 16. At what age did your period start? 13. 17. Are you premenopausal? No. 18. How many full term pregnancies have you had? 2. 19. Have you ever missed your period for more than 6 months in a row (not including or menopause)? No. TECHNIQUE: Bone mineral density study was performed using the [employer]. FINDINGS: The results of the study expressed as bone mineral density (BMD) are as follows: Lumbar spine L1 to L4: BMD: 0.985 g/cm2. T-score: -0.6. Z-score: 2.3. Neck Left: BMD: 0.610 g/cm2. T-score: -2.2. Z-score: 0.3. Right: BMD: 0.606 g/cm2. T-score: -2.2. Z-score: 0.3. Total Left: BMD: 0.660 g/cm2. T-score: -2.3. Z-score: -0.0 Right: BMD: 0.730 g/cm2. T-score: -1.7. Z-score: 0.6. IMPRESSION: Osteopenia. *Comparison exams done prior to 04/2020 were performed on different unit, ARPU. COMPARISON: Compared with scan of 02/27/2022, the bone mineral density has increased by 4.4 percent at the spine and increased by 2.9 percent at the hips. FRAX 10-year Fracture Risk Major Osteoporotic Fracture: 30 percent Hip Fracture: 12 percent Reported Risk Factors: [place] () Neck BMD=0.606, BMI=28.9, glucocorticoids, rheumatoid arthritis. Alejandrina Araujo M.D. Body/Diagnostic Radiologist [email or web address] LORRAINE/lobito / bM/Dictated by: Alejandrina Araujo MD @ 03/04/2025 3:21:00 AM (Electronically Signed)
== END 2025-03-03 12:55 | disposition home or self-care (01) ==
LOC: RAD 12:55
PROVIDERS: PCP Physician Assistant Medical; Visit Provider Physician Assistant Medical
DX: M81.0 Age-related osteoporosis without current pathological fracture (principal); M85.89 Other specified disorders of bone density and structure, multiple sites; Z85.3 Personal history of malignant neoplasm of breast
CPT/HCPCS: 77080

== ENCOUNTER 2025-05-11 11:34 | Outpatient (CLI) | payer BC, SELFPAY | END 2025-05-11 11:35 | disposition home or self-care (01) | LOC: NFLDREF 05-15 02:45 | PROVIDERS: PCP Physician Assistant Medical; Referring Provider Physician Assistant Medical; Visit Provider Physician Assistant Medical | DX: E03.9 Hypothyroidism, unspecified (principal); E78.5 Hyperlipidemia, unspecified; I10 Essential (primary) hypertension; E78.2 Mixed hyperlipidemia | CPT/HCPCS: 80061; 84443 ==

== ENCOUNTER 2025-08-02 13:17 | Outpatient (CLI) | payer BC, SELFPAY | END 2025-08-02 13:18 | disposition home or self-care (01) | LOC: NFLDREF 08-08 07:54 | PROVIDERS: PCP Physician Assistant Medical; Referring Provider Physician Assistant Medical; Visit Provider Physician Assistant Medical | DX: R53.83 Other fatigue (principal) | CPT/HCPCS: 82306; 82607; 82728 ==

== ENCOUNTER 2025-10-28 11:11 | Emergency (ER) | payer BC, SELFPAY ==
[2025-10-28] VITALS (13 sets, daily range): BP systolic 165–183; BP diastolic 96–105; PULSE 79–109; RESP 20; TEMP 36.2; O2SAT 87–93; BMI 28.2
--- NOTE | 2025-10-28 11:45 | CRLHL7_ITS ---
For Patients: As a result of the Century Cures Act, medical imaging exams and procedure reports are released immediately into your electronic medical record. You may view this report before your referring provider. If you have questions, please contact your health care provider. Indication: Shortness of breath Technique: Chest 2 views Comparison: Chest x-ray 11/30/2024 Findings/Impression: Cardiovascular and mediastinum: Cardiomegaly with atherosclerotic calcification. Lungs and pleural spaces: Trace bilateral pleural effusions with reticular interstitial prominence consistent with pulmonary edema. Some left lateral herniation of the lung near the level of the left 6th rib redemonstrated, similar to prior. Bones and soft tissues: No significant findings. Dictated by Delroy Ortiz MD @ 10/28/2025 12:41:34 PM (Electronically Signed)
--- NOTE | 2025-10-28 11:47 | ED.GENADULT ---
HPI - General Adult General Chief complaint: Shortness of Breath/Dyspnea Stated complaint: Hypoxia Time Seen by Provider: 10/28/25 11:28 History of Present Illness HPI narrative: PATIENT IS 84-YEAR-OLD WOMAN WITH UNDERLYING HISTORY OF CHRONIC ATRIAL FIBRILLATION KIDNEY DISEASE AND COPD WHO PRESENTS WITH COUGH OF 24 HOURS DURATION. SHE HAS HAD NO FEVERS NO CHILLS NO NIGHT SWEATS. COUGH IS NONPRODUCTIVE. SHE DID HAVE A CHOKING EPISODE YESTERDAY WHILE TAKING HER MEDICATION. HER DAUGHTER WHO IS A PHYSICIAN [employer] WORKER SAW HER TODAY AND GIVE THE PATIENT A NEBULIZER TREATMENT WHICH HELPED BUT THE OXYGEN SATURATION WHICH IS NORMALLY 94% AND ABOVE IS NOW 89%. SHE HAS HAD NO OTHER RELATED SYMPTOMS AND OTHERWISE BEEN IN HER USUAL STATE OF HEALTH WITH NO CHEST PAIN OR LOWER EXTREMITY EDEMA. Related Data Home Medications ?Medication ?Instructions ?Recorded ?Confirmed cholecalciferol (vitamin D3) 25 25 mcg PO DAILY 07/18/22 09/27/25 mcg (1,000 unit) capsule omeprazole 40 mg capsule,delayed 40 mg PO BID 07/02/23 09/27/25 release acetaminophen 500 mg capsule 1,000 mg PO TID 11/27/23 09/27/25 diclofenac sodium 1 % topical gel 2 g topical QID PRN 11/27/23 09/27/25 multivitamin (Daily Multi-Vitamin 1 tab PO QAM 11/27/23 09/27/25 tablet) loperamide 2 mg capsule (Imodium 2 mg PO Q6H PRN 07/14/24 09/27/25 A-D) Lactobacillus rhamnosus GG 10 1 cap PO DAILY 11/29/24 09/27/25 billion cell capsule (Culturelle) certolizumab pegol 400 mg/2 mL 400 mg subcut Q14D 11/29/24 09/27/25 (200 mg/mL x2) subcutaneous syringe kit (Cimzia) lotilaner 0.25 % eye drops (Xdemvy) drp ophthalmic (eye) 05/11/25 09/27/25 budesonide 3 mg mg PO 08/02/25 09/27/25 capsule,delayed,extended release diclofenac sodium 1 % topical gel 2 g topical QID 08/02/25 09/27/25 (Voltaren Arthritis Pain) donepezil 10 mg tablet 10 mg PO QDAY 08/02/25 09/27/25 Previous Rx's ?Medication ?Instructions ?Recorded ipratropium 0.5 mg-albuterol 3 mg 3 ml inhalation Q6H PRN #180 mL 12/01/24 (2.5 mg base)/3 mL nebulization soln alendronate 70 mg tablet 70 mg PO Q7D #13 tabs 12/08/24 amlodipine 5 mg tablet 5 mg PO DAILY #90 tabs 12/22/24 rivaroxaban 15 mg tablet (Xarelto) 15 mg PO HS #90 tabs 12/22/24 atorvastatin 40 mg tablet 40 mg PO DAILY #90 tabs 12/28/24 escitalopram oxalate 20 mg tablet 20 mg PO DAILY #90 tabs 12/28/24 levothyroxine 75 mcg tablet 75 mcg PO DAILY #90 tabs 05/12/25 metoprolol succinate 50 mg 50 mg PO BID #180 tabs 05/12/25 tablet,extended release 24 hr estradiol 0.01% (0.1 mg/gram) 1 appful vaginal 3XW #42.5 grams 08/02/25 vaginal cream lisinopril 30 mg tablet 30 mg PO QHS #90 tabs 08/05/25 trazodone 50 mg tablet 50 mg PO QHS #90 tabs 10/11/25 azithromycin 250 mg tablet See Rx Instructions PO .COMPLEX #6 10/28/25 (Zithromax Z-Beau) tabs prednisone 20 mg tablet 20 mg PO BID #10 tabs 10/28/25 Allergies Allergy/AdvReac Type Severity Reaction Status Date / Time adhesive AdvReac Unknown Verified 10/28/25 11:30 codeine AdvReac Unknown Verified 10/28/25 11:30 Review of Systems Status of ROS: Reports: 10 or more systems reviewed and unremarkable except as noted in History and below [facility] Medical History Health care directive on file ?Z78.9 - Other specified health status (ICD-10) Acute hypoxic respiratory failure ?J96.01 - Acute respiratory failure with hypoxia (ICD-10) Elevated lactic acid level ?R79.89 - Other specified abnormal findings of blood chemistry (ICD-10) Respiratory acidosis ?E87.29 - Other acidosis (ICD-10) Acute CVA (cerebrovascular accident) (09/15/23) ?I63.9 - Cerebral infarction, unspecified (ICD-10) Lateral meniscal tear ?S83.289A - Other tear of lateral meniscus, current injury, unspecified knee, initial encounter (ICD-10) CVA (cerebral vascular accident) ?I63.9 - Cerebral infarction, unspecified (ICD-10) Pseudomonas urinary tract infection ?N39.0 - Urinary tract infection, site not specified (ICD-10) ?B96.5 - Pseudomonas (aeruginosa) (mallei) (pseudomallei) as the cause of diseases classified elsewhere (ICD-10) Decreased range of motion of knee ?M25.669 - Stiffness of unspecified knee, not elsewhere classified (ICD-10) Acute pain of left knee ?M25.562 - Pain in left knee (ICD-10) History of squamous cell carcinoma ?Z85.89 - Personal history of malignant neoplasm of other organs and systems (ICD-10) Surgical History Status post patent foramen ovale closure (2009) ?Z87.74 - Personal history of (corrected) congenital malformations of heart and circulatory system (ICD-10) History of tonsillectomy and adenoidectomy ?Z90.89 - Acquired absence of other organs (ICD-10) History of hysterectomy ?Z90.710 - Acquired absence of both cervix and uterus (ICD-10) History of cholecystectomy ?Z90.49 - Acquired absence of other specified parts of digestive tract (ICD-10) History of appendectomy ?Z90.49 - Acquired absence of other specified parts of digestive tract (ICD-10) Social History Narrative: Lives independently. Daughter sets up meds. Denies tobacco, recreational drugs use. EtOH a few times a year. Dtr confirmed DNR/DNI. What is your current living situation?: I presently have a place to live Problems where you live: no known problems Problems where you live details: N/A In the past 12 months, utilities in danger of being shut off: no In past 12 months, lack of transportation kept you from medical appts, meetings, work, or getting things needed for daily living: no In the past 12 mos, have been you worried that your food would run out before you had money to buy more?: never true In the past 12 mos, the food you bought just didn't last and you didn't have money to buy more?: never true Highest level of school completed/degree received: some college, no degree Smoking Status: Former smoker How often do you have a drink containing alcohol: monthly or less AUDIT-C Alcohol total score: 1 Non-prescribed substance use: denies use Caffeine: Yes How often does anyone, including family, friends and others, physically hurt you: never How often does anyone, including family, friends and others, insult or talk down to you: never How often does anyone, including family, friends and others, threaten you with harm: never How often does anyone, including family, friends and others, scream or curse at you: never service: No Exam Narrative: Exam Narrative: EXAM GENERAL: Patient appears comfortable and well. EYES: No scleral icterus. ENT: Tympanic membranes and oropharynx normal. THYROID: no thyroid nodules or thyromegaly. LYMPH: No supraclavicular or cervical lymphadenopathy. SKIN: Visible skin seen during exam normal or with benign process only. EXT: No dependent lower extremity pedal edema. HEART: Regular rate and rhythm with no murmurs, rubs, or gallops. LUNGS: Decreased breath sounds with scattered rhonchi in the bases bilaterally. ABD: Soft, non tender, non distended. PSYCH: Good eye contact, speech is not pressured. Const: Vital Signs, click to edit/add: Vital Signs - 24 hr 10/28/25 11:21 10/28/25 11:26 10/28/25 11:30 Temperature 97.2 F L Pulse Rate 109 H 92 Pulse Rate [Pulse Oximeter] 87 Respiratory Rate 20 Blood Pressure 167/104 H Blood Pressure [Ri ght Upper Arm] 167/104 H Pulse Oximetry 89 93 91 Oxygen Delivery Me thod Room Air 10/28/25 11:30 10/28/25 11:32 10/28/25 11:45 Temperature Pulse Rate 100 90 99 Pulse Rate [Pulse Oximeter] Respiratory Rate Blood Pressure 165/105 H Blood Pressure [Ri ght Upper Arm] Pulse Oximetry 90 90 88 Oxygen Delivery Me thod 10/28/25 12:06 10/28/25 12:15 10/28/25 12:30 Temperature Pulse Rate 86 86 87 Pulse Rate [Pulse Oximeter] Respiratory Rate Blood Pressure Blood Pressure [Ri ght Upper Arm] Pulse Oximetry 89 87 L 90 Oxygen Delivery Me thod 10/28/25 12:34 Temperature Pulse Rate 84 Pulse Rate [Pulse Oximeter] Respiratory Rate Blood Pressure 183/96 H Blood Pressure [Ri ght Upper Arm] Pulse Oximetry Oxygen Delivery Me thod Course Course ED Course: Patient seen examined. Chest x-ray CBC comprehensive metabolic panel COVID RSV and flu pending. Vital Signs Vital signs: Initial Vital Signs Pulse Rate 109 H 10/28/25 11:21 Pulse Oximetry 89 10/28/25 11:21 Vital Signs Pulse Rate 109 H 10/28/25 11:21 Pulse Oximetry 89 10/28/25 11:21 Temperature 97.2 F L 10/28/25 11:30 Pulse Rate 84 10/28/25 12:34 Respiratory Rate 20 10/28/25 11:30 Blood Pressure 183/96 H 10/28/25 12:34 Pulse Oximetry 90 10/28/25 12:30 Oxygen Delivery Method Room Air 10/28/25 11:30 Medical Decision Making MDM Narrative Medical decision making narrative: Patient is a 84-year-old woman who presents with cough shortness of breath. Triple swab is negative chest x-ray is unremarkable. I did review the results with her and she is in no distress. She will be on a short course of prednisone and Z-Beau as directed and will follow-up with her primary provider next week. She will come back if symptoms worsen otherwise will keep her outpatient appointment. Final diagnosis bronchitis. Lab Data Labs: Lab Results 10/28/25 Range/Units 12:04 WBC 7.64 (4.50-11.00) K/uL RBC 3.86 L (4.00-5.20) m/uL Hgb 13.3 (12.0-16.0) gm/dL Hct 41.5 (33.0-51.0) % MCV 108 H (80-100) fL MCH 35 H (26-34) pg MCHC 32 (32-36) gm/dL RDW Coeff of Caron 13.3 (11.5-15.5) % Plt Count 154 (140-440) K/uL Neut % (Auto) 75.4 H (42.0-72.0) % Lymph % (Auto) 15.6 L (20-44) % Craven % (Auto) 8.2 (0.0-11.0) % Eos % (Auto) 0.0 (0.0-7.0) % Baso % (Auto) 0.4 (0.0-3.0) % Neut # (Auto) 5.80 (1.7-7.0) K/uL Lymph # (Auto) 1.20 (0.90-2.90) K/uL Craven # (Auto) 0.60 (0.00-0.90) K/UL Eos # (Auto) 0.00 (0.00-0.50) K/uL Baso # (Auto) 0.03 (0.00-0.30) K/uL Abs Immat Gran (auto) 0.03 (0.00-0.30) K/uL Imm/Tot Granulo (auto) 0.4 % Sodium 140 (135-149) mmol/L Potassium 4.6 (3.6-5.1) mmol/L Chloride 100 (96-114) mmol/L Carbon Dioxide 28 (20-32) mmol/L Anion Gap 12 (7-15) mEq/L BUN 26 (7-30) mg/dL Creatinine 1.2 (0.5-1.5) mg/dL Estimated Creat Clear 28.87 Estimated GFR 45 ml/min Glucose 177 H (60-115) mg/dL Calcium 10.2 (8.4-10.6) mg/dL Total Bilirubin 1.1 (0.1-1.5) mg/dL AST 52 H (12-35) U/L ALT 48 H (4-35) U/L Alkaline Phosphatase 62 (40-150) U/L Total Protein 7.2 (6.0-8.3) g/dL Albumin 4.2 (3.3-5.0) g/dL Discharge Plan Discharge Clinical Impression: Bronchitis Patient Disposition: Home, Self-Care Condition: Stable Instructions: Acute Bronchitis (ED) Additional Instructions: Zithromax as directed Prednisone as directed Continue current medication Follow-up with your provider as needed. Activity Level: No Restrictions Discharge Diet: Regular Prescriptions: New azithromycin [Zithromax Z-Beau] 250 mg tablet See Rx Instructions .ROUTE .COMPLEX Qty: 6 0RF Rx Instructions: For 250 mg dose pack: take 500 mg today (day 1), then 250 mg for 4 days (days 2-5) prednisone 20 mg tablet 20 mg PO BID Qty: 10 0RF No Action cholecalciferol (vitamin D3) 25 mcg (1,000 unit) capsule 25 mcg PO DAILY loperamide [Imodium A-D] 2 mg capsule 2 mg PO Q6H PRN Xdemvy 0.25 % drops ophthalmic (eye) Patient Comments: [NO ORIGINAL SIG] budesonide 3 mg capsule,delayed,extend.release PO Rx Instructions: tapering down acetaminophen 500 mg capsule 1,000 mg PO TID diclofenac sodium 1 % gel 2 g topical QID PRN Rx Instructions: apply to single elbow, wrist or hand; for hand includes palm/fingers/back of hand multivitamin [Daily Multi-Vitamin] Tablet 1 tab PO QAM alendronate 70 mg tablet 70 mg PO Q7D Qty: 13 3RF Rx Instructions: MONDAYS donepezil 10 mg tablet 10 mg PO QDAY diclofenac sodium [Voltaren Arthritis Pain] 1 % gel 2 g topical QID Rx Instructions: apply to single elbow, wrist or hand; for hand includes palm/fingers/back of hand estradiol 0.01 % (0.1 mg/gram) cream 1 appful vaginal 3XW Qty: 42.5 5RF Culturelle 10 billion cell capsule 1 cap PO DAILY Cimzia 400 mg/2 mL (200 mg/mL x 2) syringe kit 400 mg subcut Q14D ipratropium-albuterol 0.5 mg-3 mg(2.5 mg base)/3 mL solution for nebulization 3 ml inhalation Q6H PRNQty: 180 0RF omeprazole 40 mg capsule,delayed release(DR/EC) 40 mg PO BID amlodipine 5 mg tablet 5 mg PO DAILY Qty: 90 3RF Xarelto 15 mg tablet 15 mg PO HS Qty: 90 3RF escitalopram oxalate 20 mg tablet 20 mg PO DAILY Qty: 90 3RF atorvastatin 40 mg tablet 40 mg PO DAILY Qty: 90 3RF levothyroxine 75 mcg tablet 75 mcg PO DAILY Qty: 90 3RF metoprolol succinate 50 mg tablet extended release 24 hr 50 mg PO BID Qty: 180 3RF lisinopril 30 mg tablet 30 mg PO QHS Qty: 90 0RF trazodone 50 mg tablet 50 mg PO QHS Qty: 90 0RF Follow Up/Referrals: Yari Craig PA-C [Primary Care Provider, Family Practice] Stand Alone Forms: [employer] Info Instructions
--- OUTSIDE RECORDS SUMMARY | 2025-10-28 12:13 | XMS_ITS | Encounter Summary ---
Author Organization [facility] Address [address] [place] [address] Care Team Providers Care Assisted Living Manager Name Role Phone Yari Craig PA-C Primary Care Provider [phone] Vasile Reece PhD LP Unavailable Amber Titus APRN DOVETAIL MACHINE OPERATOR Unavailable Keerthi Duff PA-C Unavailable [phone] Amber Titus APRN DOVETAIL MACHINE OPERATOR Unavailable Amber Titus APRN DOVETAIL MACHINE OPERATOR Unavailable [phone] Keerthi Duff PA-C Unavailable [phone] Vasile Reece PhD ASPEN Unavailable [phone] Reason for Visit * Reason Comments Medication Refill Encounter Details Date Type Department Care Team (Late st Contact Info) Description 03/23/2025 [facility] Neurology [facility] [address], [address] [place] [address] Amber Titus APRN DOVETAIL MACHINE OPERATOR NEUROLOGY [facility] [address] [place] [address] Medication Refill Social History Tobacco Use Types Packs/Day Years [...] e motionally safe where you currently live? Yes 02/28/2025 Within the past 12 months, h ave you been hit, slapped, kicked or otherwise physically hurt by someone? No 02/28/2025 Within the past 12 months, h ave you been humiliated or emotionally abused in other ways by your partner or ex-partner? No 02/28/2025 Comments Unknown Sex and Gender Information Value Date Recorded Sex Assigned at Not on file Legal Sex Female 4:56 PM CDT Gender Identity Not on file Sexual Orientation Not on file documented as of this encounter Miscellaneous Notes * Telephone Encounter - Janelle Nj RN - 03/23/2025 9:43 AM CDT 3mo supply provided. Pt needs to schedule stroke follow-up for March/ available. Please contact pt/daughter to arrange. Janelle Nj BS, RN, SCRN Stroke/Neurovascular Clinic RN [facility] Neuroscience Service Line documented in this encounter Plan of Treatment Upcoming Encounters Date Type Department Care Team (Late st Contact Info) Description 04/10/2026 1:30 PM CDT Virtual Visit [facility] Neurology Clinics - [address], [address] [place] [address] Amber Titus APRN [facility] NEUROLOGY [facility] [address] [place] [phone] documented as of this encounter Visit Diagnoses Diagnosis Cognitive and behavioral changes- Primary Other signs and symptoms involving cognition 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) documented in this encounter Care Teams Assisted Living Manager Relationship Specialty Start Date End Date Yari Craig PA-C [facility] [address] [facility] [place] [address] PCP - General 09/15/23 Vasile Reece, PhD LP [address] [place] [address] [id number] MD Neuropsychology 10/02/23 Amber Titus APRN DOVETAIL MACHINE OPERATOR NEUROLOGY [facility] [address] [place] [address] [phone] Nurse Practitioner Psychiatry & Neurology Vascular Neurology 10/24/23 Keerthi Duff PA-C [address] [place], [place] [id number] Physician [facility] 09/02/24 Amber Titus APRN DOVETAIL MACHINE OPERATOR NEUROLOGY [facility] [address] [place] [address] [phone] Assigned Surgical Provider 09/15/24 05/15/25 Amber Titus APRN DOVETAIL MACHINE OPERATOR NEUROLOGY [facility] [address] [place] [address] [phone] Assigned Neuroscience Provider 05/16/25 Keerthi Duff PA-C [address] [place], [place] [address] Assigned Surgical Provider 05/16/25 Vasile Reece, PhD LP [address] [place] [id number] Assigned Behavioral Health Provider 08/16/25 documented as of this encounter
--- OUTSIDE RECORDS SUMMARY | 2025-10-28 12:13 | XMS_ITS | Clinical Summary ---
Author Organization [facility] Address [address] [place] [address] Care Team Providers Care Production Control Clerk Name Role Phone Yari Craig PA-C Primary Care Provider [phone] Vasile Reece PhD LP Unavailable [phone] Amber Titus APRN STATION INSPECTOR Unavailable [phone] Keerthi Duff PA-C Unavailable [phone] Amber Titus APRN STATION INSPECTOR Unavailable [phone] Keerthi Duff PA-C Unavailable [phone] Vasile Reece PhD ASPEN Unavailable [phone] Allergies Active Allergy Reactions Criticality Noted Date Comments Adhesive Tape Rash Low 09/12/2023 If for short use no problem but if on for less then 24 hours no problems Codeine Confusion 09/12/2023 Sleeps heavily and has wandered after use Medications alendronate (FOSAMAX) 70 MG tabletIndications :Decreased Bone Mineral Density Take 70 mg by mouth every 7 days Active calcium carbonate-vitamin D (CALTRATE) 600-10 MG-MCG per tabletIndications :Hypocalcemia Take 1 tablet by mouth 2 times daily Active levothyroxine (SYNTHROID/LEVOTH ROID) 75 MCG tabletIndications :Hypothyroidism Take 75 mcg by mouth daily Active multivitamin (CENTRUM SILVER) tabletIndications :nutrition supplement Take 1 tablet by mouth daily Active omeprazole (PRILOSEC) [address] capsuleIndication s:Heartburn Take 40 mg by mouth 2 times daily Active rivaroxaban ANTICOAGULANT (XARELTO) 15 MG TABS tabletIndications :Afib-non valvular Take 15 mg by mouth daily (with dinner) Active atorvastatin (LIPITOR) 40 MG tabletIndications :Cerebrovascular Accident Take 1 tablet (40 mg) by mouth every evening 09/29/20 Active diclofenac (VOLTAREN) 1 % topical gel Apply 2 g topically 3 times daily 10/10/20 Active acetaminophen (TYLENOL) 500 MG tablet Take 2 tablets (1,000 mg) by mouth 3 times daily. May also take 2 tablets (1,000 mg) daily as needed for mild pain. 10/10/20 Active albuterol (PROAIR HFA/PROVENTIL HFA/VENTOLIN HFA) 108 (90 Base) MCG/ACT inhaler Inhale 2 puffs into the lungs every 4 hours as needed for shortness of breath, wheezing or cough. 10/10/20 Active cloNIDine (CATAPRES) 0.1 MG tabletIndications :Hypertension Take 0.1 mg by mouth every 6 hours as needed (hypertension) Give if SBP >170 Active certolizumab pegol (CIMZIA) 2 X 200 MG injection 2 vials/kit Inject 1 Syringe Subcutaneous every 14 days 10/06/20 Active metoprolol succinate ER (TOPROL XL) 50 MG 24 hr tablet Take 50 mg by mouth 2 times daily Active traZODone (DESYREL) 50 MG tablet 25mg 11/27/19 24 Active amLODIPine (NORVASC) 5 MG tablet 11/30/19 25 Active escitalopram (LEXAPRO) 20 MG tablet Take 1 tablet by mouth daily at 2 pm. 12/28/19 25 Active lisinopril (ZESTRIL) 20 MG tablet Take 20 mg by mouth 2 times daily. 12/26/19 25 Active budesonide (ENTOCORT EC) 3 MG EC capsule PLEASE SEE ATTACHED FOR DETAILED DIRECTIONS 03/03/20 25 Active estradiol (ESTRACE) 0.1 MG/GM vaginal creamIndications: Recurrent UTI,Atrophic vaginitis Place 1 g vaginally three times a week. 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 90 tablet 1 07/04/20 25 Active citalopram (CELEXA) 10 MG tablet Take 10 mg by mouth daily 023 Discontin ued(Patie nt Discharge ) metoprolol tartrate (LOPRESSOR) 25 MG tabletIndications :Hypertension Take 25 mg by mouth 2 times daily 023 Discontin ued(Patie nt Discharge ) Active Problems Problem Noted Date Diagnosed Date [...] and colonoscopy 08/2014 ?UC or Crohn's Immunizations Immunization Administration Dates Next Due COVID-19 Monovalent 18+ [...] month PHQ-2 Answer Date Recorded PHQ-2 Score 2 07/04/2025 Adolescent Education Answer Date Record ed Getting [...] Sign Reading Time Taken Comments Blood Pressure 139/87 03/24/2025 1:07 PM CDT Pulse 80 03/24/2025 1:07 PM CDT Temperature 37 C (98.6 F) 02/28/2025 9:30 AM CDT Respiratory Rate 16 02/28/2025 9:30 AM CDT Oxygen Saturation 92% 02/28/2025 9:30 AM CDT Inhaled Oxygen Concentration - - Weight 68.9 kg (151 lb 12.8 oz) 02/28/2025 6:09 AM CDT Height 158.8 cm (5' 2.5) 02/22/2025 11 :00 AM CDT Body Mass Index 27.32 02/22/2025 11:00 AM CDT Plan of Treatment Upcoming Encounters Date Type Department Care Team (Late st Contact Info) Description 04/10/2026 1:30 PM CDT Virtual Visit [facility] Neurology Clinics - [address], [address] [place] [address] Amber Titus APRN [facility] [address] [place] [address] Health Maintenance Due Date Last Done Comments ANNUAL REVIEW OF HM ORDERS 1940 ASTHMA ACTION PLAN 1940 ASTHMA CONTROL TEST 1940 DEPRESSION ACTION PLAN 1940 DEXA 1940 HF ACTION PLAN 1940 MICROALBUMIN 1940 PHQ-9 1940 FALL RISK ASSESSMENT 2005 MEDICARE ANNUAL WELLNESS VISIT 2005 BMP 04/27/2024 10/27/2023, 09/25, 10/15/2023, Additional history exists LIPID 09/15/2024 09/15/2023 ALT 09/28/2024 09/28/2023 CBC 09/28/2024 09/28/2023, 08/26, 09/18/2023, Additional history exists HEMOGLOBIN 09/28/2024 09/28/2023, 08/26, 09/18/2023, Additional history exists COVID-19 VACCINE ( season) 2025 08/26/2024, 10/03/2023, 08/19/2022, Additional history exists INFLUENZA VACCINE (#1) 2025 , 08/20/2023, 08/15/2022, Additional history exists ADVANCE CARE PLANNING 10/15/2028 10/15/2023, 023 DTAP/TDAP/TD VACCINE (2 - Td or Tdap) 10/06/2033 10/06/2023 ZOSTER VACCINE Completed 04/17/2022, 09/06/2021 PNEUMOCOCCAL VACCINE 50+ YEARS Completed 10/06/2023 TSH W/FREE T4 REFLEX Completed 10/06/2023, 10/06/20 URINALYSIS Completed 01/17/2025, 11/26, 09/28/2023 RSV VACCINE Completed 06/28/2025 HPV VACCINE (No Doses Required) Completed MENINGITIS VACCINE Aged Out No longer eligible based on patient's age to complete this topic Procedures Procedure Name Priority Date/Time Associated Diagnosis Comments URINALYSIS MACROSCOPIC Routine 01/17/2025 1:26 PM SPINNING MULE OPERATOR Recurrent UTI BASIC METABOLIC PANEL Routine 10/27/2023 7:56 AM SPINNING MULE OPERATOR Heart failure, unspecified (H) Essential (primary) hypertension T4 FREE Routine 10/06/2023 6:08 AM SPINNING MULE OPERATOR Hypothyroidism, unspecified Essential (primary) hypertension HEPATIC FUNCTION PANEL Timed 09/28/2023 1:51 PM SPINNING MULE OPERATOR CBC WITH PLATELETS STAT 09/28/2023 11 :03 AM SPINNING MULE OPERATOR LIPID PROFILE Add-On 09/15/2023 5:49 AM CDT from Last 3 Months or Most Recently Relevant to Health Maintenance Results * (ABNORMAL) UA without Microscopic [[id number]] (01/17/2025 1:26 PM SPINNING MULE OPERATOR) Color Urine Sharri(A) Colorless, Straw, Light Yellow, Yellow 01/17/2025 1:30 PM SPINNING MULE OPERATOR [facility] Appearance Urine Clear Clear 01/17/20 1:30 PM SPINNING MULE OPERATOR [facility] Glucose Urine Negative Negative mg/dL 01/17/2025 1:30 PM SPINNING MULE OPERATOR [facility] Bilirubin Urine Negative Negative 1:30 PM SPINNING MULE OPERATOR [facility] Ketones Urine 15(A) Negative mg/dL 01/17/2025 1:30 PM SPINNING MULE OPERATOR [facility] Specific [place] Urine >=1.030 1.003 - 1.035 01/17/2025 1:30 PM SPINNING MULE OPERATOR [facility] Blood Urine Negative Negative 01/17/2025 1:30 PM SPINNING MULE OPERATOR [facility] pH Urine 5.5 5.0 - 7.0 01/17/2025 1:30 PM SPINNING MULE OPERATOR [facility] Protein Albumin Urine >=300(A) Negative mg/dL 01/17/2025 1:30 PM SPINNING MULE OPERATOR [facility] Urobilinogen Urine 0.2 0.2, 1.0 E.U./dL 01/17/2025 1:30 PM SPINNING MULE OPERATOR [facility] Nitrite Urine Negative Negative 01/17/2025 1:30 PM SPINNING MULE OPERATOR [facility] Leukocyte Esterase Urine Negative Negative 01/17/2025 1:30 PM SPINNING MULE OPERATOR [facility] Urine MID-STREAM URINE SPECIMEN / Unknown Non-blood Collection / Unknown 01/17/2025 1:26 PM SPINNING MULE OPERATOR 01/17/2025 1:26 PM SPINNING MULE OPERATOR us Roque Lanier MD LAB - URINE ORDERABLES Fin al Result [facility] [address] [facility]. [address] [phone] * (ABNORMAL) Basic metabolic panel (10/27/2023 7:56 AM SPINNING MULE OPERATOR) [facility] Sodium 139 135 - 145 mmol/L 10/27/2023 10:22 AM [facility] Comment:Reference intervals for this test were updated on 08/19/2023 to more accurately reflect our healthy population. There may be differences in the flagging of prior results with similar values performed with this method. Interpretation of those prior results can be made in the context of the updated reference intervals. Potassium 4.3 3.4 - 5.3 mmol/L 10/27/2023 10:22 AM [facility] Chloride 100 98 - 107 mmol/L 10/27/2023 10:22 AM [facility] Carbon Dioxide (CO2) 26 22 - 29 mmol/L 10/27/2023 10:22 AM [facility] Anion Gap 13 7 - 15 mmol/L 10/27/2023 10:22 AM [facility] Urea Nitrogen 35.6(H) 8.0 - 23.0 mg/dL 10/27/2023 10:22 AM [facility] Creatinine 1.44(H) 0.51 - 0.95 mg/dL 10/27/2023 10:22 AM SPINNING MULE OPERATOR LABORATORY GFR Estimate 36(L) >60 mL/min/1. 73m2 10/27/2023 10:22 AM SPINNING MULE OPERATOR LABORATORY Calcium 9.0 8.8 - 10.2 mg/dL 10/27/2023 10:22 AM SPINNING MULE OPERATOR LABORATORY Glucose 99 70 - 99 mg/dL 10/27/2023 10:22 AM SPINNING MULE OPERATOR LABORATORY Blood BLOOD SPECIMEN / Unknown Venipuncture / Unknown 10/27/2023 7:56 AM SPINNING MULE OPERATOR 10/27/2023 9:51 AM SPINNING MULE OPERATOR Yeimy Almazan APRN, CNP LAB - BLOOD ORDER CHARISMA Final Result [facility] [address], [address] [place] [address], [facility] [phone] * T4 free (10/06/2023 6:08 AM SPINNING MULE OPERATOR) Free T4 1.27 0.90 - 1.70 ng/dL 10/06/2023 11:37 AM SPINNING MULE OPERATOR LABORATORY Blood STRUCTURE OF RIGHT HAND / Unknown Venipuncture / Unknown 10/06/2023 6:08 AM SPINNING MULE OPERATOR 10/06/2023 9:52 AM SPINNING MULE OPERATOR Yeimy Almazan APRN, CNP LAB - BLOOD ORDER CHARISMA Final Result [facility]ORATORY [facility] [address], [address] [place] [address], [place] [phone] * Hepatic panel (09/28/2023 1:51 PM SPINNING MULE OPERATOR) Protein Total 7.0 6.4 - 8.3 g/dL 09/28/2023 3:58 PM SPINNING MULE OPERATOR [facility] Albumin 4.0 3.5 - 5.2 g/dL 09/28/2023 3:58 PM SPINNING MULE OPERATOR [facility] Bilirubin Total 0.4 <=1.2 mg/dL 09/28/2023 3:58 PM SPINNING MULE OPERATOR [facility] Alkaline Phosphatase 94 35 - 104 U/L 09/28/2023 3:58 PM SPINNING MULE OPERATOR [facility] AST 09/28/2023 3:58 PM SPINNING MULE OPERATOR [facility] Comment: Unsatisfactory specimen - hemolyzed [...] 0 - 50 U/L 09/28/2023 3:58 PM SPINNING MULE OPERATOR [facility] Comment:Reference intervals for this test were updated on 05/05/2023 to more accurately reflect our healthy population. There may be differences in the flagging of prior results with similar values performed with this method. Interpretation of those prior results can be made in the context of the updated reference intervals. Bilirubin Direct <0.20 0.00 - 0.30 mg/dL 09/28/2023 3:58 PM SPINNING MULE OPERATOR [facility] Blood BLOOD SPECIMEN / Unknown Venipuncture / Unknown 09/28/2023 1:51 PM SPINNING MULE OPERATOR 09/28/2023 2:25 PM SPINNING MULE OPERATOR us Kasey Covington MD LAB - BLOOD ORDERABLES Final Re sult UR [facility]ATORY [facility] [address] [facility], [address] [place] [address], [facility] [phone] * CBC with platelets (09/28/2023 11:03 AM SPINNING MULE OPERATOR) WBC Count 8.7 4.0 - 11.0 10e3/uL 09/28/2023 11:10 AM SPINNING MULE OPERATOR [facility] RBC Count 4.46 3.80 - 5.20 10e6/uL 09/28/2023 11:10 AM SPINNING MULE OPERATOR [facility] Hemoglobin 14.7 11.7 - 15.7 g/dL 09/28/2023 11:10 AM SPINNING MULE OPERATOR [facility] Hematocrit 43.7 35.0 - 47.0 % 09/28/2023 11:10 AM SPINNING MULE OPERATOR [facility] MCV 98 78 - 100 fL 09/28/2023 11:10 AM SPINNING MULE OPERATOR [facility] MCH 33.0 26.5 - 33.0 pg 09/28/2023 11:10 AM SPINNING MULE OPERATOR [facility] MCHC 33.6 31.5 - 36.5 g/dL 09/28/2023 11:10 AM SPINNING MULE OPERATOR [facility] RDW 13.2 10.0 - 15.0 % 09/28/2023 11:10 AM SPINNING MULE OPERATOR [facility] Platelet Count 236 150 - 450 10e3/uL 09/28/2023 11:10 AM SPINNING MULE OPERATOR [facility] Blood STRUCTURE OF RIGHT UPPER LIMB / Unknown Venipuncture / Unknown 09/28/2023 11:03 AM SPINNING MULE OPERATOR 09/28/2023 11:07 AM SPINNING MULE OPERATOR us Kasey Covington MD LAB - BLOOD ORDERABLES Final Re sult UR [facility]ORATORY [facility] [address] [facility], [address] [place] [id number] [phone] * (ABNORMAL) Lipid Profile (09/15/2023 5:49 AM [...] MD LAB - BLOOD ORDERABLES Final Result LABORATORY [facility] [address] [facility], [address] [address], [facility] [phone] from Last 3 Months or Most Recently Relevant to Health Maintenance Insurance [facility] [facility] MEDICARE [id number] [place] [id number] [employer] MEDICARE Advance Directives For more information, please contact: [phone] Documents on File Type Date Recorded Patient Crystalizer Operator Expl anation Advance Directives and Livin g Will 10/01/2023 POLST 09-30-2023 * No CPR- Do NOT Intubate (Latest Code Status on File) Date Activated Date Inactivated Comments 09/30/2023 8:52 AM 02/28/2025 5:56 AM Question Answer Comments Code status determined [...] patie nt/ legal decision maker Care Teams Production Control Clerk Relationship Specialty Start Date End Date Yari Craig PA-C [address] [address] PCP - General 09/15/23 Vasile Reece, PhD LP [address] [place] [address] Neuropsychology 10/02/23 Amber Titus APRN STATION INSPECTOR [facility]UROLOG[facility] [address] [place] [address] Nurse Practitioner Psychiatry & Neurology Vascular Neurology 10/24/23 Keerthi Duff PA-C [address] [place], [place] [phone] Physician Director Women Urology 09/02/24 Amber Titus APRN STATION INSPECTOR [facility] [address] [place] [address] Assigned Neuroscience Provider 05/16/25 Keerthi Duff PA-C [address] [facility] [address] [place], [place] [phone] Assigned Surgical Provider 05/16/25 Vasile Reece, PhD LP [address] [place], [place] [id number] Assigned Behavioral Health Provider 08/16/25
--- OUTSIDE RECORDS SUMMARY | 2025-10-28 12:13 | XMS_ITS | Encounter Summary ---
Author Organization [facility] Address [address] [place] [address] Care Team Providers Care Cloth Hand Name Role Phone Yari Craig PA-C Primary Care Provider [phone] Vasile Reece PhD LP Unavailable [phone] Amber Titus APRN GLASS BEVELER Unavailable [phone] Keerthi Duff PA-C Unavailable [phone] Amber Titus APRN GLASS BEVELER Unavailable [phone] Amber Titus APRN GLASS BEVELER Unavailable [phone] Keerthi Duff PA-C Unavailable [phone] Vasile Reece PhD ASPEN Unavailable [phone] Encounter Details Date Type Department Care Team (Late st Contact Info) Description 10/12/2024 MyC Medical Advice [facility] Neurology Clinics [address], [address] [place] [address] Janelle Nj, RN Social History Tobacco [...] Description 04/10/2026 1:30 PM CDT Virtual Visit [facility] Neurology [address], [address] [place] [address] Amber Titus APRN GLASS BEVELER [facility]OLOG[facility] [address] [place] [address] documented as of this encounter Visit Diagnoses Not on filedocumented in this encounter Care Teams Cloth Hand Relationship Specialty Start Date End Date Yari Craig PA-C [address] [address] PCP - General 09/15/23 Vasile Reece, PhD LP [address] [place] [address] [phone] Neuropsychology 10/02/23 Amber Titus APRN GLASS BEVELER [facility] [address] [place] [address] [phone] Nurse Practitioner Psychiatry & Neurology Vascular Neurology 10/24/23 Keerthi Duff PA-C [address] [place], [place] [address] Physician Branch Operations Manager Urology 09/02/24 Amber Titus APRN GLASS BEVELER [facility]UROLOG[facility] [address] [place] [address] 245645 Assigned Surgical Provider 09/15/24 05/15/25 Amber Titus APRN GLASS BEVELER NEUROLOGY [facility] [address] [place] [address] [id number] Assigned Neuroscience Provider 05/16/25 Keerthi Duff PA-C [address] [place], [place] [address] Assigned Surgical Provider 05/16/25 Vasile Reece, PhD LP [address] [place] [address]115 Assigned Behavioral Health Provider 08/16/25 documented as of this encounter
--- OUTSIDE RECORDS SUMMARY | 2025-10-28 12:13 | XMS_ITS | Clinical Summary ---
Author Organization [facility] Address [address] [place] [address] Care Team Providers Care Out And Out Cigar Maker Hand Name Role Phone CraigYari rodney Cameron ZABALA Primary Care Provider [phone] Allergies Active Allergy Reactions Criticality Noted Date Comments Adhesive Rash Low 08/13/2014 Codeine Other - Describe In Comment Field Medium Sleep walks Medications multivitamins-c [id number] erals 18-0.4 mg tab tablet Daily Active potassium chloride (KLOR-CON 10; K-TAB) 10 mEq Controlled-Rele ase tablet Daily Active alendronate (FOSAMAX) 70 mg tablet 09/23/2021 Active Certolizumab Pegol (CIMZIA) 400 mg/2 mL (200 mg/mL x 2) sykt injection [id number] Activ e cholecalciferol (VITAMIN D3) 1,000 unit [...] Comments Blood Pressure 138/90 10/11/2021 3:07 PM FACILITIES CLERK Pulse 82 10/30/2022 1:23 PM FACILITIES CLERK Temperature - - Respiratory Rate - - Oxygen Saturation 99% 10/30/2022 1:23 PM FACILITIES CLERK Inhaled Oxygen Concentration - - Weight 70.3 kg (155 lb) 10/30/2022 1:23 PM FACILITIES CLERK Height - - Body Mass Index - - Plan of Treatment Health Maintenance Due Date Last Done Comments Tetanus booster 1951 Depression screening for age 12+ 1952 BMI (ht and wt on same day) for age 18+ 1958 Zoster (shingles) series for age 50+ (1 of 2) 1959 Pneumococcal series for age 50+ (1 of 1 - PCV) 1990 DEXA/DXA scan for age 65+ 2005 RSV vaccine for adults or (1 - 1-dose 75+ series) 2015 COVID-19 vaccine series (2 - Moderna risk series) 09/16/2022 08/19/2022 Influenza Vaccine (#1) 2025 Hepatitis B series for 19+ Aged Out N o longer eligible based on patient's age to complete this topic Insurance [address] [id number] [place] [address] [facility] FED EMP Care Teams Out And Out Cigar Maker Hand Relationship Specialty Start Date End Date Yari Craig PA-C [address] [place] [address] PCP - General Physician Armed Guard 09/26/22
--- OUTSIDE RECORDS SUMMARY | 2025-10-28 12:13 | XMS_ITS ---
Author Organization [facility] enter Care Team Providers Care Civil Transportation Engineer Name Role Phone Bryan Araya Unavailable Unavailable Yeimy Almazan Unavailable Unavailable Allergies and adverse reactions Code CodeSystem Substance Reaction Severity StartDate Concern Status Adhesive Tape Unknown Unknown active 1580 RXNORM Codeine Unknown Unknown active Care Team Name Role Address Phone Organization Dates Bryan Araya PCP [facility] [address], [place], [address], [place] (Office): : (Pager): [facility] 09/30/2023 - 11/26/2023 Yeimy Almazan [address], [address], [place] (Office): : : [facility] 09/30/2023 - 11/26/2023 Immunizations Immunization Status Vaccine Details Vaccine Code CodeSystem Date Notes Tdap completed tetanus toxoid, reduced diphtheria toxoid, and acellular pertussis vaccine, adsorbed lotNumber: [id number] expiry: 12/30/2023 Given 0.5 ml Left Deltoid intramuscularly 115 CVX created date: 3 consent date: 3 administe red date: 3 Educated by Yassine on 10/06/2023 Yassine Fluzone influenza vaccine completed Influenza, split virus, quadrivalent, injectable, contains preservative 158 CVX created date: 3 administe red date: 3 SARS-COV-2 (COVID-19) completed SARS-COV-2 (COVID-19) vaccine, mRNA, spike protein, LNP, preservative free, 30 mcg/0.3mL dose Step 2 of Multi-step with next step required 208 CVX created date: 3 consent date: 3 administe red date: 2 SARS-COV-2 (COVID-19) completed SARS-COV-2 (COVID-19) vaccine, mRNA, spike protein, LNP, preservative free, 100 mcg/0.5mL dose or 50 mcg/0.25mL dose Step 1 of Multi-step with next step required 207 CVX created date: 3 administe red date: 1 Prevnar 20 completed Pneumococcal conjugate vaccine 20-valent (PCV20), polysaccharide [id number] conjugate, adjuvant, preservative free lotNumber: [id number] expiry: 01/04/2025 Given 0.5 ml Right Deltoid intramuscularly 216 CVX created date: 3 consent date: 3 administe red date: 3 Educated by venancio on 10/06/2023 venancio Covid Bivalent Booster(Pfizer) completed SARS-COV-2 (COVID-19) vaccine, mRNA, spike protein, LNP, bivalent, preservative free, 30 mcg/0.3 mL dose, dayanara-sucrose formulation 300 CVX created date: 3 administe red date: 2 Shingrix completed zoster vaccine recombinant 187 CVX created date: 3 administe red date: 2 Shingrix completed zoster vaccine recombinant 187 CVX created date: 3 administe red date: 1 Pfizer Covid [id number] Formula completed SARS-COV-2 (COVID-19) vaccine, mRNA, spike protein, LNP, preservative free, dayanara-sucrose, 30 mcg/0.3 mL dose lotNumber: [id number] expiry: 10/10/2024 Mfg: PFIZER Given 0.5 ml Left Deltoid intramuscularly 309 CVX created date: 3 consent date: 3 administe red date: 3 Administered by [facility] Abrysvo cancelled Respiratory syncytial virus (RSV), vaccine, bivalent, protein subunit RSV prefusion F, diluent reconstituted, 0.5 mL, preservative free 305 CVX created date: 3 consent date: 3 Mental Status Section Date Assessment Total Score Description 11/26/2023 BIMS 13 cognitively int act CAM 0 No delirium ind icated PHQ-9 00 10/06/2023 BIMS 13 cognitively int act CAM 0 No delirium ind icated PHQ-9 01 minimal depress ion Insurance Providers Coverage Status Coverage Type Relationship to Subscriber Member Identifier Subscriber Identifier Group Identifier Payer Identifier and Other information Code: 1 Code System OID:[id number] .1.937514.3. 221.5 Code System Name: Source of Payment Typology (PHDSC) Display: Medicare Translation: Code: [place] Code System: OID:2.16.840 .1.864327.6. 255.1336 Code System Name: Insurance Type Code ([id number]) Display Name: Medicare Part A 2023 Code: 349 Code System OID:2.16.840 .1.147865.3. 221.5 Code System Name: Source of Payment Typology (PHDSC) Display: Other Translation: Code: C1 Code System: OID:2.16.840 .1.944963.6. 255.1336 Code System Name: Insurance Type Code ([id number]) Display Name: Commercial Insurance Code: SELF Code System Name: HL7 RoleCode Code System OID:2.16.840.1 .646876.5.111 Display Name: Self [id number] Root: [id number] Payer Identifier: Root: [id number] Extension: [id number] Payer Name: [facility] ([id number]) Address: 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 [address] active 3 CHRONIC ATRIAL FIBRILLATION, UNSPECIFIED [address] active 4 CHRONIC KIDNEY DISEASE, STAGE 3 UNSPECIFIED 3 09/30/[address] completed 5 CHRONIC KIDNEY DISEASE, STAGE 3B [address] active 6 CROHN'S DISEASE, UNSPECIFIED, WITHOUT COMPLICATIONS [address] active 7 DYSPHAGIA FOLLOWING CEREBRAL INFARCTION [address] active 8 ESSENTIAL (PRIMARY) HYPERTENSION [address] active 9 GASTRO-ESOPHAGEAL REFLUX DISEASE WITHOUT ESOPHAGITIS [address] active 10 HEMIPLEGIA AND HEMIPARESIS FOLLOWING CEREBRAL INFARCTION AFFECTING LEFT NON-DOMINANT SIDE [address] active 11 HYPOTHYROIDISM, UNSPECIFIED [address] active 12 MAJOR DEPRESSIVE DISORDER, RECURRENT, UNSPECIFIED [address] active 13 MUSCLE WEAKNESS (GENERALIZED) [address] active 14 RHEUMATOID ARTHRITIS, UNSPECIFIED [address] active 15 UNSPECIFIED ATRIAL FIBRILLATION 3 09/30/[address] completed 16 UNSPECIFIED SYMPTOMS AND SIGNS INVOLVING COGNITIVE FUNCTIONS FOLLOWING CEREBRAL INFARCTION [address] active 17 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 [address] active Reason for Referral No Reasons for Referral Entered Social History Social History Observation Description Start Date End Date Code Code System Current Smoking Status Tobacco smoking consumption unknown 415651496 SNOMED CT Sex Assigned At Female 1940 08328-3 [facility] Gender Identity Sexual Orientation Vital Signs Code Code System Vitals Name Values and Units Timing Information 9279-1 [facility] Respiratory Rate Value=20.0 Units=/m in 11/26/2023 8462-4 [facility] Blood Pressure-Diastolic Value=64 Un its=mmHg 11/26/2023 8480-6 [facility] Blood Pressure-Systolic Fmlot=535 Un its=mmHg 11/26/2023 8310-5 [facility] Body Temperature Value=98.0 Units= F 11/26/2023 8867-4 [facility] Heart rate Value=77.0 Units=/min 01/2024 55934-5 [facility] O2 % BldC Oximetry Value=95.0 Units= % 11/26/2023 08114-0 [facility] Pain Level Value=0.0 11/26/2023 74207-9 [facility] Weight Udhuz=068.8 Units=Lbs 12/2023 8302-2 [facility] Height Value=64.0 Units=Inches 10/01/2023
--- OUTSIDE RECORDS SUMMARY | 2025-10-28 12:13 | XMS_ITS | Encounter Summary ---
Author Organization [place] Address [address] [place] [address] Care Team Providers Care Parks And Recreation Manager Name Role Phone Yari Craig PA-C Primary Care Provider [phone] Vasile Reece PhD LP Unavailable [phone] Amber Titus APRN SECURITY INCIDENT RESPONSE SPECIALIST Unavailable Amber Titus APRN SECURITY INCIDENT RESPONSE SPECIALIST Unavailable [phone] Keerthi Duff PA-C Unavailable [phone] Amber Titus APRN SECURITY INCIDENT RESPONSE SPECIALIST Unavailable [phone] Amber Titus APRN SECURITY INCIDENT RESPONSE SPECIALIST Unavailable [phone] Keerthi Duff PA-C Unavailable [phone] Vasile Reece PhD LP Unavailable [phone] Encounter Details Date Type Department Care Team (Late st Contact Info) Description 06/01/2024 [facility] Neurology Clinics [address], [address] [place] [address] Amber Titus APRN SECURITY INCIDENT RESPONSE SPECIALIST [facility] [address] [place] [address] Social History Tobacco Use Types Packs/Day [...] Description 04/10/2026 1:30 PM CDT Virtual Visit [facility] Neurology [address], [address] [place] [address] Amber Titus APRN SECURITY INCIDENT RESPONSE SPECIALIST [facility] [address] [place] [address] documented as of this encounter Visit Diagnoses Not on filedocumented in this encounter Care Teams Parks And Recreation Manager Relationship Specialty Start Date End Date Yari Craig PA-C [address] [address] PCP - General 09/15/23 Vasile Reece, PhD LP [address] [place] [address] Neuropsychology 10/02/23 Amber Titus APRN SECURITY INCIDENT RESPONSE SPECIALIST [facility] [address] [place] [address] Nurse Practitioner Psychiatry & Neurology Vascular Neurology 10/24/23 Amber Titus APRN SECURITY INCIDENT RESPONSE SPECIALIST [facility] [address] [place] [address] 023315 Assigned Behavioral Health Provider 03/16/24 09/14/24 Keerthi Duff PA-C [address] [place] [address] Physician Enterprise Integration Architect Urology 09/02/24 Amber Titus APRN SECURITY INCIDENT RESPONSE SPECIALIST [facility] [address] [place] [address] Assigned Surgical Provider 09/15/24 05/15/25 Amber Titus APRN SECURITY INCIDENT RESPONSE SPECIALIST [facility] [address] [place] [address] Assigned Neuroscience Provider 05/16/25 Keerthi Duff PA-C [address] [place] [address] Assigned Surgical Provider 05/16/25 Vasile Reece, PhD LP [address] [place] [address] Assigned Behavioral Health Provider 08/16/25 documented as of this encounter
--- OUTSIDE RECORDS SUMMARY | 2025-10-28 12:13 | XMS_ITS | Encounter Summary ---
Author Organization [place] [facility] Address [address] [facility] [place] [address] Care Team Providers Care Supervisor Vegetable Farming Name Role Phone Yari Craig PA-C Primary Care Provider [phone] Vasile Reece PhD LP Unavailable [phone] Amber Titus APRN MCAT TUTOR Unavailable [phone] Keerthi Duff PA-C Unavailable [phone] Amber Titus APRN MCAT TUTOR Unavailable [phone] Amber Titus APRN MCAT TUTOR Unavailable [phone] Keerthi Duff PA-C Unavailable [phone] Vasile Reece PhD ASPEN Unavailable [phone] Encounter Details Date Type Department Care Team (Late st Contact Info) Description 01/18/2025 [facility] [address] [place] [address] Keerthi Duff PA-C [address] [facility] [address] [place], [place] [address] Social History Tobacco Use Types Packs/Day Years [...] Description 04/10/2026 1:30 PM CDT Virtual Visit [facility] Neurology [address], [address] [place] [address] Amber Titus APRN [facility] [address] [place] [address] 406225 documented as of this encounter Visit Diagnoses Not on filedocumented in this encounter Care Teams Supervisor Vegetable Farming Relationship Specialty Start Date End Date Yari Craig PA-C [address] [place] [address] PCP - General 09/15/23 Vasile Reece, PhD LP [address] [place] [address] 539685 Neuropsychology 10/02/23 Amber Titus APRN MCAT TUTOR [facility] [address] [place] [address] Nurse Practitioner Psychiatry & Neurology Vascular Neurology 10/24/23 Keerthi Duff PA-C [address] [place], [place] [address] Physician Jewel Bearing Maker Urology 09/02/24 Amber Titus APRN MCAT TUTOR [facility] [address] [place] [address] Assigned Surgical Provider 09/15/24 05/15/25 Amber Titus APRN MCAT TUTOR [facility] [address] [place] [address] Assigned Neuroscience Provider 05/16/25 Keerthi Duff PA-C [address] [place] [address] Assigned Surgical Provider 05/16/25 Vasile Reece, PhD LP [address] [place] [address] 594395 Assigned Behavioral Health Provider 08/16/25 documented as of this encounter
--- OUTSIDE RECORDS SUMMARY | 2025-10-28 12:13 | XMS_ITS | Encounter Summary ---
Author Organization [place] Address [address] [facility] [place] [address] Care Team Providers Care Tree Trimming Supervisor Name Role Phone Yari Craig PA-C Primary Care Provider [phone] Vasile Reece PhD LP Unavailable [phone] Amber Titus APRN GRASSROOTS ORGANIZER Unavailable [phone] Keerthi Duff PA-C Unavailable [phone] Amber Titus APRN GRASSROOTS ORGANIZER Unavailable [phone] Amber Titus APRN GRASSROOTS ORGANIZER Unavailable [phone] Keerthi Duff PA-C Unavailable [phone] Vasile Reece PhD ASPEN Unavailable [phone] Encounter Details Date Type Department Care Team (Late st Contact Info) Description 09/27/2024 [facility] [place] [address] [facility] [address] [place] [address] Carolyn Hernandez Social History Tobacco Use Types [...] Description 04/10/2026 1:30 PM CDT Virtual Visit [facility] Neurology [facility] [address] [place] [address], [address] [place] [address] Amber Titus APRN GRASSROOTS ORGANIZER [facility] [address] [place] [address] 690885 documented as of this encounter Visit Diagnoses Not on filedocumented in this encounter Care Teams Tree Trimming Supervisor Relationship Specialty Start Date End Date Yari Craig PA-C [facility] [address] [place] [address] PCP - General 09/15/23 Vasile Reece, PhD LP [address] [place] [address] Neuropsychology 10/02/23 Amber Titus APRN GRASSROOTS ORGANIZER [facility] [address] [place] [address] Nurse Practitioner Psychiatry & Neurology Vascular Neurology 10/24/23 Keerthi Duff PA-C [address] [facility] [address] [place] [address] Physician Refrigerating Engineer Head Urology 09/02/24 Amber Titus APRN GRASSROOTS ORGANIZER [facility] [address] [place] [address] 994355 Assigned Surgical Provider 09/15/24 05/15/25 Amber Titus APRN GRASSROOTS ORGANIZER [facility] [address] [place] [address] [phone] Assigned Neuroscience Provider 05/16/25 Keerthi Duff PA-C [address] 249085 Assigned Surgical Provider 05/16/25 Vasile Reece, PhD LP [address] [place] [address] [phone] Assigned Behavioral Health Provider 08/16/25 documented as of this encounter
--- OUTSIDE RECORDS SUMMARY | 2025-10-28 12:13 | XMS_ITS | Encounter Summary ---
Author Organization [place] Address [address] [place] [address] Care Team Providers Care Gas Station Clerk Name Role Phone Yari Craig PA-C Primary Care Provider [phone] Vasile Reece PhD LP Unavailable Amber Titus APRN PORCELAIN BUILDUP ASSISTANT Unavailable Amber Titus APRN PORCELAIN BUILDUP ASSISTANT Unavailable [phone] Keerthi DuffC Unavailable Amber Titus APRN PORCELAIN BUILDUP ASSISTANT Unavailable Amber Titus APRN PORCELAIN BUILDUP ASSISTANT Unavailable Keerthi DuffC Unavailable [phone] Vasile Reece PhD LP Unavailable [phone] Encounter Details Date Type Department Care Team (Late st Contact Info) Description 07/14/2024 [facility] Neuropsychology [place] [address] [facility] 3rd [place] [address] Vasile Reece, PhD LP [address] [place] [address] Social History Tobacco Use Types [...] Description 04/10/2026 1:30 PM CDT Virtual Visit [facility] Neurology [address], [address] [place] [address] Amber Titus APRN PORCELAIN BUILDUP ASSISTANT [facility] [address] [place] [address] [phone] documented as of this encounter Visit Diagnoses Not on filedocumented in this encounter Care Teams Gas Station Clerk Relationship Specialty Start Date End Date Yari Craig PA-C [facility] & [address] [address] PCP - General 09/15/23 Vasile Reece, PhD LP [address] [place] [address] Neuropsychology 10/02/23 Amber Titus APRN PORCELAIN BUILDUP ASSISTANT [facility] [address] [place] [address] Nurse Practitioner Psychiatry & Neurology Vascular Neurology 10/24/23 Amber Titus APRN PORCELAIN BUILDUP ASSISTANT [facility] [address] [place] [address] Assigned Behavioral Health Provider 03/16/24 09/14/24 Keerthi Duff PA-C [address] [place], [place] [address] Physician Clinical Immunologist Urology 09/02/24 Amber Titus APRN PORCELAIN BUILDUP ASSISTANT [facility] [address] [place] [address] [phone] Assigned Surgical Provider 09/15/24 05/15/25 Amber Titus APRN PORCELAIN BUILDUP ASSISTANT [facility] [address] [place] [address] Assigned Neuroscience Provider 05/16/25 Keerthi Duff PA-C [address] [place] [address] Assigned Surgical Provider 05/16/25 Vasile Reece, PhD LP [address] [place] [address] [id number] Assigned Behavioral Health Provider 08/16/25 documented as of this encounter
--- OUTSIDE RECORDS SUMMARY | 2025-10-28 12:14 | XMS_ITS | Encounter Summary ---
Author Organization [place] Address [address] [place] [address] Care Team Providers Care Border Measurer And Cutter Name Role Phone Yari Craig PA-C Primary Care Provider [phone] Vasile Reece PhD LP Unavailable [phone] Amber Titus APRN CENTRAL STERILE SUPPLY TECHNICIAN Unavailable [phone] Keerthi Duff PA-C Unavailable [phone] Amber Titus APRN CENTRAL STERILE SUPPLY TECHNICIAN Unavailable [phone] Amber Titus APRN CENTRAL STERILE SUPPLY TECHNICIAN Unavailable [phone] Keerthi Duff PA-C Unavailable [phone] Vasile Reece PhD ASPEN Unavailable [phone] Encounter Details Date Type Department Care Team (Late st Contact Info) Description 12/21/2024 [facility] Advice Juan José MILLER Epilepsy [facility] [address], [address] [place] [address] Bennett Guzman Social History Tobacco Use Types Packs/Day Years [...] CDT Virtual Visit [facility] Neurology [address], [address] [place] [address] Amber Titus APRN CENTRAL STERILE SUPPLY TECHNICIAN [facility] [address] [place] [address] 762115 documented as of this encounter Visit Diagnoses Not on filedocumented in this encounter Care Teams Border Measurer And Cutter Relationship Specialty Start Date End Date Yari Craig PA-C [address] [place] [address] PCP - General 09/15/23 Vasile Reece, PhD LP [address] [place] [address] Neuropsychology 10/02/23 Amber Titus APRN CENTRAL STERILE SUPPLY TECHNICIAN [facility] [address] [place] [address] Nurse Practitioner Psychiatry & Neurology Vascular Neurology 10/24/23 Keerthi Duff PA-C [address] [place] [address] Physician Physician Urology 09/02/24 Amber Titus APRN CENTRAL STERILE SUPPLY TECHNICIAN [facility] [address] [place] [address] [phone] Assigned Surgical Provider 09/15/24 05/15/25 Amber Titus APRN CENTRAL STERILE SUPPLY TECHNICIAN [facility] [address] [place] [address] 696175 Assigned Neuroscience Provider 05/16/25 Keerthi Duff PA-C [address] [place] [address] Assigned Surgical Provider 05/16/25 Vasile Reece, PhD LP [address] [place] [address] [phone] Assigned Behavioral Health Provider 08/16/25 documented as of this encounter
--- OUTSIDE RECORDS SUMMARY | 2025-10-28 12:14 | XMS_ITS | Patient Health Record ---
Author Organization [facility] Address [address] [place] [address] Care Team Providers Care Chimney Builder Name Role Phone Jamil Maurer Unavailable [phone] Allergies Allergen (clinical drug ingredient) Drug/Non Drug Allergy documented on EMR Reaction Allergy Type Onset Date Status codeine Codeine Sulfate coughing/intolle rence Drug Allergy Active Reason For Referral No Information Medications Medication SIG (Take, Route, Frequency, Duration) Notes Start Date End Date Status Potassium 75 MG 1 tablet Orally Once a day; Duration: 30 day(s) Active ProAir HFA 108 (90 Base) MCG/ACT 2 puffs as needed Inhalation prn Active Aciphex 20 MG 1 tablet Orally Once a day; Duration: 30 day(s) Active Levothyroxine Sodium 50 MCG 1 tablet brian morning on an empty stomach Orally Once a day; Duration: 30 day(s) Active Detrol LA 2 MG 1 capsule Orally Onc e a day; Duration: 30 day(s) Active Methotrexate 2.5 MG 3 tablets Orally; Duration: 30 day(s) Active Folic Acid Xtra 1 tablet Orally Once a day; Duration: 30 day(s) Active Citalopram & Diet Manage Prod 10 MG as directed Orally Active Fexofenadine HCl 180 MG 1 tablet Orally Once a day; Duration: 30 day(s) Active Triamterene-HCTZ 75-50 MG 1 tablet in e morning Orally Once a day; Duration: 30 day(s) Active Allopurinol 300 MG 1 tablet Orally Once a day; Duration: 30 day(s) Active Plan Of Treatment No Information Insurance Providers Payer Name Payer Address Payer Phone Subscriber Number Group Number Insured Name Patient Relationship to Insured Coverage Start Date Coverage End Date [facility] Health Plan [address] [address] [place] [phone] [id number] Katelyn Wyatt Self - patient is the insured Medical (General) History Medical History History ICD Code allergies Thyroid disease Premature atrial complexes Surgical History Surgery Date(Month/Year) Ablation (Heart surgery) 2008 cholecystectomy 80's hysterectomy 80's tonsillectomy Pregancy Sinuplasty - Max, front, sphen & Turb - B/L 05/2012
[2025-10-28 12:24] LABS: Hematocrit* 41.5 % (33.0-51.0); Hemoglobin* 13.3 gm/dL (12.0-16.0); Mean Corpuscular HGB Conc 32 gm/dL (32-36); Mean Corpuscular Hemoglobin 35 pg (26-34); Mean Corpuscular Volume 108 fL (80-100); RDW Coefficient of Variation % 13.3 % (11.5-15.5); Red Blood Count* 3.86 m/uL (4.00-5.20); White Blood Count* 7.64 K/uL (4.50-11.00)
[2025-10-28 12:25] LABS: Immature Granulocytes Abs Auto 0.03 K/uL (0.00-0.30); Immature Granulocytes Pct Auto 0.4 %; Lymphocytes Absolute Auto 1.20 K/uL (0.90-2.90); Slide Review Reflex No
[2025-10-28 12:36] LABS: Albumin* 4.2 g/dL (3.3-5.0); Chloride* 100 mmol/L (96-114); Potassium* 4.6 mmol/L (3.6-5.1); Sodium* 140 mmol/L (135-149)
[2025-10-28 12:38] LABS: Blood Urea Nitrogen* 26 mg/dL (7-30); Creatinine* 1.2 mg/dL (0.5-1.5); Est. Creatinine Clearance* 28.87; Estimated Glomerular Filt Rate 45 ml/min
[2025-10-28 12:39] LABS: Alanine Aminotransferase* 48 U/L (4-35); Alkaline Phosphatase* 62 U/L (40-150); Anion Gap 12 mEq/L (7-15); Aspartate Amino Transferase* 52 U/L (12-35); Bilirubin Total* 1.1 mg/dL (0.1-1.5); Calcium* 10.2 mg/dL (8.4-10.6); Carbon Dioxide* 28 mmol/L (20-32); Glucose* 177 mg/dL (60-115); Total Protein* 7.2 g/dL (6.0-8.3)
[2025-10-28 13:03] LABS: PCR FLU A Negative PCR FLU A (Negative); PCR FLU B Negative PCR FLU B (Negative); PCR RSV Negative PCR RSV (Negative); SARS PCR* Negative SARS-CoV-2 (Negative)
== END 2025-10-28 13:21 | disposition home or self-care (01) ==
PROVIDERS: Emergency Provider Internal Medicine; PCP Physician Assistant Medical
DX: J20.9 Acute bronchitis, unspecified (principal)
CPT/HCPCS: 36415; 71046; 80053; 85025; 87631; 94761; 99283; 99284